=== PATIENT | female | born 1960 | race Caucasian/White ===

== ENCOUNTER 2017-01-19 06:31 | Day surgery (SDC) | payer BC, OTHER ==
[2017-01-18 11:56] VITALS: BMI 22.6
[~2017-01-19 06:31] MED LIST: ALPRAZolam 0.25 MG TAB PO PRN; ASPIRIN 325 MG TAB PO ONE; NITROGLYCERIN SL TABS 0.4 MG TAB SUBLINGUAL PRN; SODIUM CHLORIDE 0.9% 1,000 ML in EMPTY BAG 1 BAG IV ONE
[2017-01-19 07:05] VITALS: RESP 18
[2017-01-19 07:07] LABS: Basophils # (A) 0.1 k/uL (0-0.2); Basophils % (A) 1 %; CH 31.1; CHCM 33.6; Eosinophils # (A) 0.3 k/uL (0-0.7); Eosinophils % (A) 3 %; HCT 44.1 % (34.0-46.0); HDW 2.16; HGB 14.9 gm/dL (11.4-16.0); Luc # (Auto) 0.29; Luc % (Auto) 3; Lymphocytes # (A) 3.4 k/uL (1.0-4.8); Lymphocytes % (A) 30 %; MCH 31.4 pg (25.0-35.0); MCHC 33.8 g/dL (31.0-37.0); MCV 92.9 fL (80.0-100.0); Mean Platelet Volume 7.3; Monocytes # (A) 0.4 k/uL (0-1.0); Monocytes % (A) 3 %; Neutrophils # (A) 6.8 k/uL (1.3-7.7); Neutrophils % (A) 60 %; RBC 4.75 m/uL (3.80-5.40); RDW 13.5 % (11.5-15.5); WBC 11.3 k/uL (3.8-10.6); WBC (Perox) 11.73
[2017-01-19] MEDS ORDERED: LIDOCAINE 2% INJ 20 MG/ML (20 ML MDV) ONE (07:10)
[2017-01-19] MEDS ORDERED: VERAPAMIL 2.5 MG/ML 2 ML AMP ONE (07:11)
[2017-01-19] MEDS ORDERED: MIDAZOLAM 2 MG/2 ML VIAL ONE ×2 (07:11→07:54)
[2017-01-19] MEDS ORDERED: HEPARIN SODIUM 1,000 UNIT/ML VIAL ONE (07:11)
[2017-01-19 07:23] LABS: Anion Gap 10 mmol/L; Blood Urea Nitrogen 13 mg/dL (7-17); Calcium 9.8 mg/dL (8.4-10.2); Carbon Dioxide 26 mmol/L (22-30); Chloride 109 mmol/L (98-107); Glucose 94 mg/dL (74-99); Non-African American GFR(MDRD) >60 (>60 ml/min/1.73 sqM); Potassium 3.8 mmol/L (3.5-5.1); Sodium 145 mmol/L (137-145)
[2017-01-19] MEDS ORDERED: MIDAZOLAM 2 MG/2 ML VIAL IVP ONE ×2 (07:43→07:55)
[2017-01-19] MEDS: LIDOCAINE 2% INJ 20 MG/ML SQ ONE ×2 (07:45→08:04)
[2017-01-19] MEDS ORDERED: LIDOCAINE 2% INJ 20 MG/ML SQ ONE (07:48)
[2017-01-19] MEDS: VERAPAMIL SYRINGE (5 MG/10 ML) INTRAARTER ONE ×2 (07:50→08:00)
[2017-01-19] MEDS ORDERED: HEPARIN SODIUM 1,000 UNIT/ML VIAL IV ONE (07:55)
[2017-01-19] MEDS ORDERED: IOHEXOL 350 MG/ML 100 ML BOTTLE INJ ONE (08:21)
[2017-01-19] MEDS ORDERED: RX INFO: IV CONTRAST WAS GIVEN 1 EACH MISC MISCELLANE PRN (08:23)
[2017-01-19] MEDS ORDERED: SODIUM CHLORIDE 0.9% 1,000 ML IV SCH (08:30)
[2017-01-19 12:06] VITALS: TEMP 98
[2017-01-19 12:54] VITALS: BP 134/75; PULSE 64
--- NOTE | 2017-01-19 16:25 | LTR ---
January 19, 2017 RE: Josluis miguel Halima Kitty Dear Dr. Venturaqvi: Ms. Halima Guardado underwent a heart catheterization today which showed intermediate nonobstructive disease involving the right coronary artery. Maximize medical treatment is recommended and no need for angioplasty and stenting at this point. I want to thank you for allowing me to participate in her care and please do not hesitate to call if any questions or concerns. Sincerely, BENTLEY SALGADO MD
--- NOTE | 2017-01-19 16:25 | CC ---
DATE OF SERVICE: January 19, 2017. PERFORMING PHYSICIAN: Gil Blandon M.D. agronomy technician. PROCEDURE PERFORMED: 1. Selective right and left coronary angiogram. 2. Left heart catheterization. 3. Left ventriculography. INDICATION: This is a very pleasant 56-year-old female patient with a known history of hypertension, dyslipidemia, and smoking who is known to have mild coronary artery disease on heart catheterization was performed in 2011, continues to have chest discomfort concerning for angina. She was brought today to undergo a heart catheterization. COMPLICATIONS: None. Level of sedation: Moderate. Approach: 1. Right radial artery. 2. Right common femoral artery. Level of sedation: Moderate with sedation length of 30 minutes. PROCEDURE DESCRIPTION: After obtaining informed consent, the patient was brought to the cardiac finishing lab technician. Initially the right radial artery was cannulated using micropuncture technique, the micropuncture wire passed easily, then I placed the right radial artery. Subsequently I gave the patient 2 mg of verapamil IA and 3000 units of heparin IV. I tried to advance an 0.035 J-wire but the wire will not cross the elbow. So at that point, I did exchange into an 0.035 Glidewire. I tried to advance a 5 Bangladeshi JR 4 catheter but the catheter will not cross the elbow. I did exchange into stiff Glidewire and in spite of that I was unable to cross the elbow. So I decided to abort the radial approach and go from the groin. The right common femoral artery was cannulated using micropuncture technique. The micropuncture wire passed easily, then I placed 6 Bangladeshi sheath in the right common femoral artery. Subsequently, I did selective right and left coronary angiogram using JR 3.5 and JL 3.5 5 Bangladeshi catheters. The procedure was completed without any complication. SELECTIVE CORONARY ANGIOGRAM: 1. Right coronary artery is a large-caliber vessel and it is a dominant vessel. The proximal RCA appeared to be angiographically normally. The mid RCA is diseased up to about 30%. The RCA distally appeared to be angiographically normal and bifurcates into PDA and PLV branches; both are angiographically normal. 2. The left main is a long left main with mild disease only. It bifurcates into the left circumflex and left anterior descending artery. 3. The left circumflex is a moderate-caliber vessel and it is a nondominant vessel. The proximal left circumflex is angiographically normal. It gives rises into the first OM branch, which is a large-caliber vessel, seems to be normal and the circ continues after that as a small-caliber vessel in the AV groove. 4. Left anterior descending artery: The proximal LAD appeared to be angiographically normal and gives rise to the first diagonal branch, which is a large-caliber vessel, seems to be angiographically normal. The mid LAD is normal and the LAD distally is normal as well. HEMODYNAMICS: The left ventricular end-diastolic pressure was 8 mmHg and no gradient was identified across the aortic valve. The left ventriculography was performed in the WARD projection and using a power injection. The left ventricular systolic function is normal with EF about 50 to 55%. CONCLUSION: 1. Intermediate nonobstructive disease involving the mid right coronary artery. 2. Mild disease involving the left coronary system. 3. Normal left ventricular end-diastolic pressure. 4. Normal left ventricular systolic function. POSTPROCEDURE MANAGEMENT: 1. Smoking cessation. 2. Risk factor modifications. 3. Follow up with the patient.
== END 2017-01-19 14:02 | disposition home or self-care (01) ==
LOC: CATHCVL 06:31
PROVIDERS: ATTEND Internal Medicine Interventional Cardiology
DX: I25.10 Atherosclerotic heart disease of native coronary artery without angina pectoris (principal); I10 Essential (primary) hypertension; E78.5 Hyperlipidemia, unspecified; E78.00 Pure hypercholesterolemia, unspecified; F17.210 Nicotine dependence, cigarettes, uncomplicated; Z82.49 Family history of ischemic heart disease and other diseases of the circulatory system; Z79.82 Long term (current) use of aspirin; Z79.899 Other long term (current) drug therapy
CPT/HCPCS: 99152; 99153; 93458; 80048; 85025; C1760; C1769 ×4; C1894 ×3; J2001; J2250; Q9967; J1644

== ENCOUNTER 2017-03-12 11:35 | Emergency (ER) | payer OTHER ==
[2017-03-12 11:49] VITALS: BP 156/81; PULSE 82; RESP 20; TEMP 98.2
[2017-03-12] MEDS ORDERED: KETOROLAC 60 MG/2 ML VIAL IM STA (12:30)
[2017-03-12] MEDS ORDERED: ORPHENADRINE 30 MG/ML 2 ML VIAL IM STA (12:30)
--- NOTE | 2017-03-12 12:32 | ED ---
Back Pain HPI - General Chief Complaint: Back Pain/Injury Stated Complaint: LOWER BACK PAIN Time Seen by Provider: 03/12/17 12:23 Source: patient, RN notes reviewed Limitations: no limitations - History of Present Illness Initial Comments: 57-year-old female presents emergency Department with chief complaint of low back pain. This is chronic in nature. She states that she has a history of back pains normal takes tramadol. She states she's been having increasing back pain in which she had an appointment with her primary care physician today but canceled to come here. Patient states that she's had x-rays in the past which showed degenerative changes. Patient has not had an MRI. Patient denies any bowel, bladder incontinence or retention. Patient denies any saddle anesthesias. Patient had no trauma no falls no injuries. Worse with movement. She states Tylenol is not helping much. She denies any dysuria, hematuria or increased frequency urination. Patient denies any abdominal pain. Patient states that certain movements or worsen hours. - Related Data Home Medications Medication Instructions Recorded Confirmed Cholecalciferol [Vitamin D3] 1,000 unit PO DAILY 05/09/16 01/19/17 Levothyroxine Sodium [Synthroid] 100 mcg PO DAILY 05/09/16 01/19/17 Multivitamins, Thera [Multivitamin 1 tab PO DAILY 05/09/16 01/19/17 (formulary)] Albuterol Inhaler [Ventolin Hfa 2 puff INHALATION Q6HR PRN 01/18/17 01/19/17 Inhaler] Atorvastatin [Lipitor] 20 mg PO HS 01/18/17 01/19/17 Previous Rx's Medication Instructions Recorded Aspirin 81 mg PO DAILY #1 chewable 05/10/16 Acetaminophen-Codeine 300-30mg 1 tab PO Q4H PRN #20 tablet 03/12/17 [Tylenol #3] Cyclobenzaprine [Flexeril] 10 mg PO TID PRN #15 tab 03/12/17 Allergies Allergy/AdvReac Type Severity Reaction Status Date / Time No Known Allergies Allergy Verified 03/12/17 11:49 Review of Systems ROS Statement: Those systems with pertinent positive or pertinent negative responses have been documented in the HPI. ROS Other: All systems not noted in ROS Statement are negative. Past Medical History Past Medical History: Chest Pain / Angina, COPD, Hyperlipidemia, Osteoarthritis (OA), Thyroid Disorder Additional Past Medical History / Comment(s): . History of Any Multi-Drug Resistant Organisms: None Reported Past Surgical History: Section, Cholecystectomy Past Anesthesia/Blood Transfusion Reactions: No Reported Reaction Past Psychological History: No Psychological Hx Reported Additional Psychological History / Comment(s): . Smoking Status: Current every day smoker Past Alcohol Use History: Occasional Additional Past Alcohol Use History / Comment(s): has smoked for 36 yrs , 1/2 PPD Past Drug Use History: None Reported - Past Family History Mother History Unknown: Yes Family Medical History: Deep Vein Thrombosis (DVT) Father Family Medical History: Cancer Additional Family Medical History / Comment(s): lung cancer Brother(s) Family Medical History: Cancer General Exam Limitations: no limitations General appearance: alert, in no apparent distress Head exam: Present: atraumatic, normocephalic, normal inspection Respiratory exam: Present: normal lung sounds bilaterally. Absent: respiratory distress, wheezes, rales, rhonchi, stridor Cardiovascular Exam: Present: regular rate, normal rhythm, normal heart sounds. Absent: systolic murmur, diastolic murmur, rubs, gallop, clicks GI/Abdominal exam: Present: soft, normal bowel sounds. Absent: distended, tenderness, guarding, rebound, rigid Extremities exam: Present: normal inspection, full ROM, normal capillary refill , other (Pedal pulses equal bilaterally full strength). Absent: tenderness, pedal edema, joint swelling, calf tenderness Back exam: Present: full ROM, tenderness (Mild left lower abdominal tenderness) , paraspinal tenderness, other (Pain with straight leg raise). Absent: vertebral tenderness Neurological exam: Present: alert, oriented X3, CN II-XII intact, reflexes normal. Absent: motor sensory deficit Course Vital Signs 03/12/17 11:47 Temperature 98.2 F Pulse Rate 82 Respiratory 20 Rate Blood Pressure 156/81 O2 Sat by Pulse 99 Oximetry Medical Decision Making - Medical Decision Making 57-year-old female presented for chronic back pain. Patient will be given Toradol and Norflex here. Patient we given Tylenol codeine and Flexeril go home with. Patient is instructed to follow-up with Dr. Flores in her primary care physicians. We discussed about following up for possible MRI. Return parameters were discussed Disposition Clinical Impression: Chronic back pain Disposition: HOME SELF-CARE Condition: Stable Instructions: Chronic Back Pain (ED) Additional Instructions: Please return to the Emergency Department if symptoms worsen or any other concerns. Follow-up with orthopedic and your primary care physician. Prescriptions: Acetaminophen-Codeine 300-30mg [Tylenol #3] 1 tab PO Q4H PRN #20 tablet PRN Reason: pain Cyclobenzaprine [Flexeril] 10 mg PO TID PRN #15 tab PRN Reason: Muscle Spasm Referrals: Zac Dela Cruz MD [Primary Care Provider] - 1-2 days Fredrick Huizar DO [Doctor of Osteopathic Medicine] - 1-2 days Time of Disposition: 12:31
== END 2017-03-12 12:45 | disposition home or self-care (01) ==
LOC: EC 11:35
DX: G89.29 Other chronic pain (principal); M54.5 Low back pain; E78.5 Hyperlipidemia, unspecified; E07.9 Disorder of thyroid, unspecified; F17.200 Nicotine dependence, unspecified, uncomplicated; Z79.899 Other long term (current) drug therapy
CPT/HCPCS: 99283; 96372 ×2; J2360; J1885

== ENCOUNTER → 2017-04-22 | Outpatient (CLI) | payer OTHER | LOC: RADMRIMAIN 20:32 | PROVIDERS: ATTEND Family Medicine | DX: Z53.9 Procedure and treatment not carried out, unspecified reason (principal) ==

== ENCOUNTER → 2017-05-10 | Outpatient (CLI) | payer OTHER ==
--- NOTE | 2017-05-10 18:06 | MR ---
EXAMINATION TYPE: MR lumbar spine wo con DATE OF EXAM: 05/10/2017 COMPARISON: NONE HISTORY: LBP, lt buttock radic, no trauma TECHNIQUE: T1 and T2 axial and sagittal images of the lumbar spine are submitted. FINDINGS: There is no abnormal signal seen within the visualized spinal cord or paraspinal soft tissu es. At L1-2 there is no disc herniation or canal stenosis. No foraminal encroachment. At L2-3 there is severe degenerative disc disease with a broad-based left paracentral and lateral dis c herniation. There is severe left-sided foraminal encroachment and effacement of thecal sac. Facet a rthropathy noted. Mild canal stenosis. At L3-4 there is moderate to severe degenerative disc disease. Circumferential disc bulging and facet arthropathy. Mild canal stenosis and moderate bilateral foraminal encroachment. At L4-5 there is broad-based central disc protrusion or small herniation with facet arthropathy and l igamentum flavum hypertrophy. Moderate to severe canal stenosis and bilateral moderate foraminal encr oachment. At L5-S1 there is severe facet arthropathy. There is central disc bulging but no canal stenosis or fo raminal encroachment. IMPRESSION: 1. Multilevel disc herniation with broad-based left paracentral lateral disc herniation L2-L3. There is intermediate signal along the anterior lateral margin of the thecal sac suspicious for extruded sm all disc fragment extending posterior to the L3 vertebral body on the left. This could be confirmed w ith postcontrast imaging. Postcontrast MRI recommended. 2. Central disc protrusion or small herniation L4-L5 with hypertrophic changes result in moderate to severe canal stenosis and bilateral foraminal encroachment.
== END | disposition home or self-care (01) ==
LOC: RADMRIMAIN 16:37
PROVIDERS: ATTEND Family Medicine
DX: M48.06 Spinal stenosis, lumbar region (principal); M51.26 Other intervertebral disc displacement, lumbar region
CPT/HCPCS: 72148

== ENCOUNTER → 2017-05-17 | Outpatient (CLI) | payer OTHER ==
--- NOTE | 2017-05-18 13:56 | MM ---
Reason for exam: screening (asymptomatic). Last mammogram was performed 9 years and 9 months ago. History: Patient is postmenopausal. Physical Findings: A clinical breast exam by your physician is recommended on an annual basis and results should be correlated with mammographic findings. MG Screening Mammo w CAD Bilateral CC and MLO view(s) were taken. Prior study comparison: August 04, 2007, bilateral screening mammogram w/CAD. April 16, 2006, bilateral screening mammogram w/CAD. There are scattered fibroglandular densities. No significant changes when compared with prior studies. ASSESSMENT: Benign, BI-RAD 2 RECOMMENDATION: Routine screening mammogram of both breasts in 1 year.
== END | disposition home or self-care (01) ==
LOC: RADMAMWWP 12:54
PROVIDERS: ATTEND Family Medicine
DX: Z12.31 Encounter for screening mammogram for malignant neoplasm of breast (principal)

== ENCOUNTER → 2017-12-23 | Outpatient (CLI) | payer OTHER ==
--- NOTE | 2017-12-23 15:44 | CTL ---
EXAMINATION TYPE: CT Low Dose Lung DATE OF EXAM ORDERED: 12/23/2017 HISTORY: . Lung cancer screening CT DLP: [address] CTDI: 1.8 mGy Automated exposure control for dose reduction was used. SCREENING VISIT: COMPARISON: None TECHNIQUE: Low dose computed tomography scan was performed through the chest at 1 mm thick sections a nd reconstructed images in the coronal plane at [address] DIAGNOSTIC QUALITY: Satisfactory FINDINGS: LUNG NODULES: None. There is a spiculated solid nodule adjacent to the superior vena cava within the right upper lung fie ld, series 4 image 70. This measures 1.1 x 1.0 cm. LUNGS: COPD: Severity: Mild Fibrosis: Severity: None Lymph nodes: Scattered small Other findings: The ascending thoracic aorta at the level the main pulmonary artery is 4.0 cm. The ma in pulmonary artery the bifurcation is 2.7 cm. RIGHT PLEURAL SPACE: Effusion: None Calcification: None Thickening: None Pneumothorax: None LEFT PLEURAL SPACE: Effusion: None Calcification: None Thickening: None Pneumothorax: None HEART: Heart Size: Normal Coronary calcification: Mild Pericardial effusion: None OTHER FINDINGS: Upper abdomen: Normal Bony thorax: Normal Supraclavicular region: Normal Other: None IMPRESSION: 1. 1 x 1.1 cm mass right superior medial lung field. Workup for neoplasm is recommended. PET/CT could be performed. FOLLOW UP CT CHEST RECOMMENDATION: Follow-up PET/CT and with physician. CT LUNG RAD: Lung-Rad 4B Suspicious
== END | disposition home or self-care (01) ==
LOC: RADCTMAIN 12:21
PROVIDERS: ATTEND Internal Medicine Sleep Medicine
DX: Z12.2 Encounter for screening for malignant neoplasm of respiratory organs (principal); R91.8 Other nonspecific abnormal finding of lung field; Z87.891 Personal history of nicotine dependence

== ENCOUNTER → 2018-01-01 | Outpatient (CLI) | payer OTHER ==
--- NOTE | 2018-01-02 15:36 | PE ---
EXAMINATION TYPE: PET CT fusion skull to thigh DATE OF EXAM: 01/01/2018 COMPARISON: 12/23/2017 low-dose [address] chest Prior PET/CT: None HISTORY: Solitary pulmonary nodule TECHNIQUE: Following the intravenous administration of 14.865 mCi of F-18 FDG, whole body images are performed from the skull base to the midthigh. Images are reviewed on the computer in the coronal, axial, and sagittal planes. Reconstructed rotating images are created on independent workstation and reviewed on the computer. A localization and attenuation correction CT is performed in conjunction with the PET scan. DLP: 283.65 mGycm SCAN: Initial Blood glucose: 87 mg/dL Average Mediastinum SUV: 1.07 Average Liver SUV: 2 FINDINGS: NECK: No abnormal uptake. THORAX: There is focal radiotracer accumulation within the spiculated nodule identified on the low-do se screening CT of the medial anterior right upper lobe. Image 69. This has an SUV value of 4.18 comp atible with neoplasm. No suspicious mediastinal uptake is evident. ABDOMEN: No abnormal uptake PELVIS: No abnormal uptake OSSEOUS STRUCTURES: There is some mild uptake within the facets on the right at approximately C4-5 li fran related to degenerative change. Metastatic deposit is considered less likely but within the diff erential. Some mild uptake is also present on the left C3-4. LOCALIZATION CT: There is some ascending thoracic aortic aneurysm measuring 4.2 cm in AP dimension at the level of the main pulmonary artery. The main pulmonary artery measures 2.6 cm at the bifurcation . No suspicious mediastinal adenopathy is evident. A few shotty lymph nodes are present. The right ap ical lung mass adjacent to the superior vena cava and the right upper anterior lobe measures 1.1 x 1. 1 cm on mediastinal windows. Series 3 image 69. There is a 0.2 cm calcification superior left kidney. COMPARISON: Right apical findings on the PET scan correspond to the low-dose CT screening images. IMPRESSION: 1. Right upper medial lung mass has elevated SUV compatible with neoplasm suspicious for solitary benjy thao. 2. Mild uptake is within facets at C3-4 on the left at C4-5 on the right felt to more likely be relat ed to the degenerative change present. Metastasis considered less likely is not excluded. 3. No additional suspicious radiotracer accumulation to suggest metastasis.
== END | disposition home or self-care (01) ==
LOC: RADPETMAIN 13:28
PROVIDERS: ATTEND Internal Medicine Sleep Medicine
DX: J98.4 Other disorders of lung (principal)
CPT/HCPCS: 78815; A9552

== ENCOUNTER 2018-05-21 16:20 | Emergency (ER) | payer OTHER ==
[2018-05-21 16:38] VITALS: RESP 18
[2018-05-21] MEDS ORDERED: SODIUM CHLORIDE 0.9% 1,000 ML IV ONE (17:40)
[2018-05-21] MEDS ORDERED: FAMOTIDINE 20 MG/2 ML VIAL IV STA (17:40)
[2018-05-21] MEDS ORDERED: ONDANSETRON 4 MG/2 ML VIAL IVP STA (17:40)
--- NOTE | 2018-05-21 17:53 | ED ---
General Adult HPI - General Chief complaint: Nausea/Vomiting/Diarrhea Stated complaint: Vomiting Time Seen by Provider: 05/21/18 17:00 Source: patient Mode of arrival: wheelchair Limitations: no limitations - History of Present Illness Initial comments: Halima is a 58-year-old female with a history of lung cancer currently undergoing chemotherapy. She presents to the emergency department today for evaluation of nausea and vomiting which began yesterday evening. Halima received chemotherapy on Wednesday and Wednesday of this week. Patient reports that she receives this infusion every 21 days. She reports that this should be her last treatment it was her fourth treatment in the series. Patient states that she has experienced nausea with the patient's in the past. She reports that yesterday she developed nausea and she had multiple episodes of nonbloody nonbilious emesis. She states that this morning she continued to feel nauseated and had dry heaves though she has not been able to tolerate any by mouth intake. She took Zofran but had no relief in her symptoms. She reports that this morning she also developed a nonbloody diarrhea. Patient denies any chest pain, palpitations she reports that she just feels overwhelmingly run down from this dose of chemotherapy. - Related Data Home Medications Medication Instructions Recorded Confirmed Cholecalciferol [Vitamin D3] 1,000 unit PO DAILY 05/09/16 05/21/18 Levothyroxine Sodium [Synthroid] 100 mcg PO DAILY 05/09/16 05/21/18 Multivitamins, Thera [Multivitamin 1 tab PO DAILY 05/09/16 05/21/18 (formulary)] Albuterol Inhaler [Ventolin Hfa 2 puff INHALATION Q6HR PRN 01/18/17 05/21/18 Inhaler] Atorvastatin [Lipitor] 20 mg PO HS 01/18/17 05/21/18 HYDROcodone/APAP 5-325MG [[place] 1 tab PO BID PRN 05/21/18 05/21/18 5-325] Potassium Chloride ER [K-Dur 10] 20 meq PO DAILY 05/21/18 05/21/18 Prochlorperazine [Compazine] 10 mg PO Q6H PRN 05/21/18 05/21/18 Previous Rx's Medication Instructions Recorded Aspirin 81 mg PO DAILY #1 chewable 05/10/16 Ondansetron [Zofran ODT] 4 mg PO Q8HR #12 tab 05/21/18 Allergies Allergy/AdvReac Type Severity Reaction Status Date / Time No Known Allergies Allergy Verified 05/21/18 17:09 Review of Systems ROS Statement: Those systems with pertinent positive or pertinent negative responses have been documented in the HPI. ROS Other: All systems not noted in ROS Statement are negative. Constitutional: Reports: weakness. Denies: fever Eyes: Denies: eye pain (Generalized) ENT: Denies: throat pain Respiratory: Reports: cough (Chronic) Cardiovascular: Denies: chest pain, palpitations Endocrine: Reports: fatigue Gastrointestinal: Reports: nausea, vomiting, diarrhea Genitourinary: Denies: urgency, dysuria Skin: Denies: rash, lesions Neurological: Reports: weakness. Denies: headache Psychiatric: Denies: anxiety, depression Hematological/Lymphatic: Denies: easy bleeding, easy bruising Past Medical History Past Medical History: Cancer, Chest Pain / Angina, COPD, Hyperlipidemia, Osteoarthritis (OA), Thyroid Disorder Additional Past Medical History / Comment(s): lymph node cancer, small cell carcinoma. History of Any Multi-Drug Resistant Organisms: None Reported Past Surgical History: Section, Cholecystectomy Additional Past Surgical History / Comment(s): right upper lung lobectomy Past Anesthesia/Blood Transfusion Reactions: No Reported Reaction Past Psychological History: Anxiety Smoking Status: Current every day smoker Past Alcohol Use History: Occasional Past Drug Use History: Marijuana - Past Family History Mother History Unknown: Yes Family Medical History: Deep Vein Thrombosis (DVT) Father Family Medical History: Cancer Additional Family Medical History / Comment(s): lung cancer Brother(s) Family Medical History: Cancer General Exam Limitations: no limitations General appearance: alert, other (Appears uncomfortable) Head exam: Present: atraumatic, normocephalic Eye exam: Present: normal appearance, PERRL ENT exam: Present: normal exam Neck exam: Present: normal inspection Respiratory exam: Absent: respiratory distress Cardiovascular Exam: Present: tachycardia GI/Abdominal exam: Present: soft. Absent: distended, tenderness, guarding, rebound, rigid Rectal exam: Present: deferred Extremities exam: Present: full ROM Back exam: Present: normal inspection Neurological exam: Present: alert, oriented X3 Psychiatric exam: Present: normal affect, normal mood Skin exam: Present: warm, dry Course Vital Signs 05/21/18 05/21/18 05/21/18 16:35 18:47 20:05 Temperature 97.9 F Pulse Rate 94 80 82 Respiratory 18 18 18 Rate Blood Pressure 133/98 146/82 133/83 O2 Sat by Pulse 99 99 97 Oximetry 05/21/18 20:57 Temperature 97.6 F Pulse Rate Respiratory Rate Blood Pressure O2 Sat by Pulse Oximetry - Reevaluation(s) Reevaluation #1: reevaluated, sitting comfortably again in bed. Patient has drink a glass of water and requested some avery crackers. She was given these. Patient does state that she has Zofran pills at home I will discharge home with ODT. 05/21/18 20:10 Medical Decision Making - Medical Decision Making The patient was seen and evaluated, history was obtained from the patient as well as her family at bedside. Patient with postchemotherapy nausea, vomiting, diarrhea concern for dehydration. Labs imaging were ordered IV Zofran and normal saline were ordered Patient was reevaluated after IV fluids and Zofran. She sitting up comfortably in bed, appears much more comfortable. Reports significant improvement in her nausea so the vomiting in the ER. Patient ambulated to the restroom independently. Reports she is feeling much better and is eager for discharge home. He is willing to wait the results of her urinalysis. Patient has been tolerating by mouth intake, urinalysis and no evidence of UTI. She very eager for discharge home and she would like to leave follow-up [facility] is still open and she would like to get a multiple. I advised patient that I feel that this is a good idea, she is stable for discharge. I stressed the importance of coming to the emergency department early and not waiting until she is feeling so unwell. Patient states that she does not want to be a burden to anybody. I again stressed to the patient that we understand the chemotherapy is very trying on the body and that we are always here to help her. Patient family expressed understanding and agreement. Patient discharged home in stable condition. - Lab Data Result diagrams: 05/21/18 18:00 05/21/18 18:00 Lab Results 05/21/18 05/21/18 05/21/18 Range/Units 18:00 18:00 20:34 WBC 5.7 (3.8-10.6) k/uL RBC 4.34 (3.80-5.40) m/uL Hgb 13.0 (11.4-16.0) gm/dL Hct 38.3 (34.0-46.0) % MCV 88.1 (80.0-100.0) fL MCH 29.9 (25.0-35.0) pg MCHC 33.9 (31.0-37.0) g/dL RDW 16.2 H (11.5-15.5) % Plt Count 260 (150-450) k/uL Neutrophils % 47 % Lymphocytes % 49 % Monocytes % 1 % Eosinophils % 1 % Basophils % 1 % Neutrophils # 2.6 (1.3-7.7) k/uL Lymphocytes # 2.8 (1.0-4.8) k/uL Monocytes # 0.1 (0-1.0) k/uL Eosinophils # 0.1 (0-0.7) k/uL Basophils # 0.0 (0-0.2) k/uL Manual Slide Review Performed Anisocytosis Slight Sodium 138 (137-145) mmol/L Potassium 3.8 (3.5-5.1) mmol/L Chloride 100 (98-107) mmol/L Carbon Dioxide 31 H (22-30) mmol/L Anion Gap 7 mmol/L BUN 24 H (7-17) mg/dL Creatinine 0.89 (0.52-1.04) mg/dL Est GFR (CKD-EPI)AfAm 82 (>60 ml/min/1.73 sqM) Est GFR (CKD-EPI)NonAf 71 (>60 ml/min/1.73 sqM) Glucose 113 H (74-99) mg/dL Calcium 9.6 (8.4-10.2) mg/dL Total Bilirubin 0.8 (0.2-1.3) mg/dL AST 18 (14-36) U/L ALT 39 (9-52) U/L Alkaline Phosphatase 79 (38-126) U/L Total Protein 6.5 (6.3-8.2) g/dL Albumin 4.3 (3.5-5.0) g/dL Urine Color Yellow Urine Appearance Clear (Clear) Urine pH 6.0 (5.0-8.0) Ur Specific [place] 1.013 (1.001-1.035) Urine Protein Trace H (Negative) Urine Glucose (UA) Negative (Negative) Urine Ketones Trace H (Negative) Urine Blood Trace H (Negative) Urine Nitrite Negative (Negative) Urine Bilirubin Negative (Negative) Urine Urobilinogen <2.0 (<2.0) mg/dL Ur Leukocyte Esterase Negative (Negative) Urine RBC 3 (0-5) /hpf Urine WBC 3 (0-5) /hpf Urine WBC Clumps Rare H (None) /hpf Ur Squamous Epith Cells 2 (0-4) /hpf Urine Bacteria Rare H (None) /hpf Granular Casts 1 (0) /lpf Urine Mucus Rare H (None) /hpf Disposition Clinical Impression: Nausea vomiting and diarrhea, Chemotherapy induced nausea and vomiting Disposition: HOME SELF-CARE Condition: Good Instructions: Acute Nausea and Vomiting (ED), Acute Diarrhea (ED) Prescriptions: Ondansetron [Zofran ODT] 4 mg PO Q8HR #12 tab Is patient prescribed a controlled substance at d/c from ED?: No Referrals: Zac Dela Cruz MD [Primary Care Provider] - 1-2 days Time of Disposition: 20:46
[2018-05-21 18:15] LABS: Anisocytosis Slight; Basophils % (A) 1 %; Eosinophils # (A) 0.1 k/uL (0-0.7); Eosinophils % (A) 1 %; HCT 38.3 % (34.0-46.0); Lymphocytes # (A) 2.8 k/uL (1.0-4.8); Lymphocytes % (A) 49 %; MCH 29.9 pg (25.0-35.0); MCHC 33.9 g/dL (31.0-37.0); MCV 88.1 fL (80.0-100.0); Mean Platelet Volume 6.6; Monocytes # (A) 0.1 k/uL (0-1.0); Monocytes % (A) 1 %; Neutrophils # (A) 2.6 k/uL (1.3-7.7); Neutrophils % (A) 47 %; Platelet Count 260 k/uL (150-450); RBC 4.34 m/uL (3.80-5.40); RDW 16.2 % (11.5-15.5); WBC 5.7 k/uL (3.8-10.6)
[2018-05-21 18:24] LABS: Albumin 4.3 g/dL (3.5-5.0); Calcium 9.6 mg/dL (8.4-10.2); Potassium 3.8 mmol/L (3.5-5.1); Total Bilirubin 0.8 mg/dL (0.2-1.3); Total Protein 6.5 g/dL (6.3-8.2)
--- NOTE | 2018-05-21 19:58 | XR ---
EXAMINATION TYPE: XR chest 2V DATE OF EXAM: 05/21/2018 COMPARISON: Prior chest x-ray dated 05/19/2016. HISTORY: Lung cancer with prior right lobectomy TECHNIQUE: Frontal and lateral views of the chest are obtained. FINDINGS: Loss of volume in the right hemithorax with a patchy density involving the medial portion of the right lung base. The rest of the findings are stable. No pneumothorax or significant effusions . Slight elevation of the right hemidiaphragm as compared to the prior exam. The cardiac silhouette s ize is within normal limits. The osseous structures are intact. IMPRESSION: Postsurgical changes with loss of volume in the right hemithorax as compared to the prior exam. No evidence of pneumothorax, significant effusion or new abnormal pulmonary mass.
[2018-05-21 20:06] VITALS: BP 133/83; PULSE 82
[2018-05-21 20:42] LABS: Appearance,Urine Clear (Clear); Bacteria,Urine Rare /hpf; Bilirubin,Urine Negative (Negative); Blood,Urine Trace (Negative); Color,Urine Yellow; Glucose,Urine (UA) Negative (Negative); Granular Casts,Urine 1 /lpf (0); Ketones,Urine Trace (Negative); Leukocyte Esterase,Urine Negative (Negative); Mucus,Urine Rare /hpf; Nitrite,Urine Negative (Negative); Protein,Urine Trace (Negative); RBC,Urine 3 /hpf (0-5); Specific Gravity,Urine 1.013 (1.001-1.035); Squamous Epithelial Cell,Urine 2 /hpf (0-4); Urobilinogen,Urine <2.0 mg/dL (<2.0); WBC,Urine 3 /hpf (0-5)
[2018-05-21 20:58] VITALS: TEMP 97.6
== END 2018-05-21 20:58 | disposition home or self-care (01) ==
LOC: EC 16:20
DX: R11.2 Nausea with vomiting, unspecified (principal); R19.7 Diarrhea, unspecified; J44.9 Chronic obstructive pulmonary disease, unspecified; E78.5 Hyperlipidemia, unspecified; E07.9 Disorder of thyroid, unspecified; C34.90 Malignant neoplasm of unspecified part of unspecified bronchus or lung; F41.9 Anxiety disorder, unspecified; F17.200 Nicotine dependence, unspecified, uncomplicated; Z85.89 Personal history of malignant neoplasm of other organs and systems; Z79.899 Other long term (current) drug therapy; Z90.49 Acquired absence of other specified parts of digestive tract; Z92.21 Personal history of antineoplastic chemotherapy
CPT/HCPCS: 36415; 80053; 85025; 81001; 71046; 99284; 96374; 96375; 96361 ×3; J2405

== ENCOUNTER → 2018-05-25 | Outpatient (CLI) | payer OTHER ==
--- NOTE | 2018-05-25 12:37 | MR ---
EXAMINATION TYPE: MR cervical spine wo con DATE OF EXAM: 05/25/2018 COMPARISON: PET scan 01/01/2018 HISTORY: Cervicalgia, PEREIRA TECHNIQUE: Multiplanar, multisequence images of the cervical spine were acquired. C2-C3: Mild generalized degenerative change. There is mild facet arthropathy. No foraminal encroachme nt or canal stenosis. C3-C4: Facet arthropathy and mild uncovertebral joint hypertrophy. Neural foramina remain patent. No canal stenosis or focal herniation. C4-C5: Facet arthropathy and uncovertebral joint hypertrophy. No foraminal encroachment or canal sten osis. C5-C6: Severe degenerative disc disease with posterior disc protrusion capped by spur. There is impre ssion upon the anterior margin the spinal cord and findings compatible spinal stenosis. Facet arthrop athy contributes to bilateral foraminal encroachment. C6-C7: Severe degenerative disc disease with posterior disc protrusion abutting the anterior margin t he spinal cord. Uncovertebral joint hypertrophy and facet arthropathy result in moderate bilateral fo raminal encroachment. There is canal stenosis. C7-T1: No disc herniation or canal stenosis. No foraminal encroachment. Cervical segments are intact. There is normal alignment. Cervical spinal cord is of normal signal. Craniovertebral junction relationships are within normal limits. IMPRESSION: Multilevel degenerative change with severe changes at C5-6 and C6-C7. Disc protrusion capped by spur and hypertrophic changes contribute to bilateral foraminal encroachment and spinal stenosis. At both levels there is mild impression along the anterior margin of the spinal cord.
== END | disposition home or self-care (01) ==
LOC: RADMRIMAIN 11:46
PROVIDERS: ATTEND Psychiatry & Neurology Neurology
DX: M48.02 Spinal stenosis, cervical region (principal); M50.222 Other cervical disc displacement at C5-C6 level; M47.812 Spondylosis without myelopathy or radiculopathy, cervical region
CPT/HCPCS: 72141

== ENCOUNTER → 2018-06-03 | Outpatient (CLI) | payer OTHER ==
--- NOTE | 2018-06-05 14:09 | MR ---
EXAMINATION TYPE: MR brain wo/w con DATE OF EXAM: 06/03/2018 COMPARISON: None HISTORY: Headache, history of cancer CONTRAST: Performed utilizing 6.5 mL intravenous Gadavist gadolinium contrast. TECHNIQUE: Multiplanar, multiecho imaging on a 3.0 Katheryn magnet is performed through the brain. Stud y is performed within 24 hours of arrival to the hospital. The craniovertebral junction is normal. The pituitary is normal. Diffusion-weighted imaging is performed. No abnormal hyperintensity is present to suggest an acute i ntracranial infarct or acute ischemic change. There are a few scattered punctate T2 hyperintensities which are hyperintense on inversion recovery w eighted sequences. These are nonspecific and most likely related to chronic white matter ischemic britney nges. No enhancement within these lesions is evident. No abnormal enhancement is evident elsewhere wi thin the brain. Ventricles and sulci are appropriate for the patient age. IMPRESSIONS: 1. Scattered punctate white matter changes in the deep white matter most likely related to chronic wh ite matter ischemic changes. 2. No suspicious lesions or enhancement to suggest metastatic disease.
== END | disposition home or self-care (01) ==
LOC: RADMRIMAIN 17:01
PROVIDERS: ATTEND Internal Medicine Hematology & Oncology
DX: R90.82 White matter disease, unspecified (principal)
CPT/HCPCS: 70553; A9581

== ENCOUNTER → 2018-06-07 | Outpatient (CLI) | payer OTHER ==
--- NOTE | 2018-06-08 08:35 | CT ---
EXAMINATION TYPE: CT ChestAbdPelvis w con DATE OF EXAM: 06/07/2018 COMPARISON: PET/CT January 01, 2018. HISTORY: Follow up for lung CA, history of right-sided partial pneumonectomy and chemotherapy, dates not specified CT DLP: 527.9 mGycm. Automated Exposure Control for Dose Reduction was Utilized. CONTRAST: CT scan of the thorax, abdomen and pelvis is performed with oral and with IV Contrast, patient inject ed with 100 mL of Isovue 300. FINDINGS: LUNGS: Since prior PET/CT there has been partial pneumonectomy with sutures in the medial aspect righ t upper lung. Previously visualized right lung nodule is not identified. Right upper to midlung centr al and anterior scarring is now present. There is minimal right basilar linear scarring. No new suspi cious nodule or mass is present. Second small nodule periphery right lung PET/CT axial image 80 also not clearly identified after surgery. No pleural effusion or pneumothorax is noted. MEDIASTINUM: There are no greater than 1 cm hilar or mediastinal lymph nodes. No cardiomegaly or pe ricardial effusion is seen. Ascending aorta measures up to 3.6 cm in diameter. Coronary artery calcif ication is seen which is noted marker for coronary artery disease. OTHER: Somewhat small size thyroid is redemonstrated.. LIVER/GB: Cholecystectomy clips are redemonstrated. PANCREAS: No significant abnormality is seen. SPLEEN: Small splenule anterior to spleen is again seen. ADRENALS: Slight asymmetric symmetric thickening to left adrenal gland is stable presumed benign. KIDNEYS: No significant abnormality is seen. BOWEL: No significant abnormality is seen. GENITAL ORGANS: Scattered pelvic phleboliths are present bilaterally. LYMPH NODES: No greater than 1cm abdominal or pelvic lymph nodes are appreciated. OSSEOUS STRUCTURES: Moderate disc space narrowing L2-L3 level. Mild disc space narrowing with vacuum disc phenomenon L4-L5. Mild to moderate axial joint space loss both hips. OTHER: Moderate aftereffect change of the abdominal aorta extending into pelvic branch vessels. IMPRESSION: Interval treatment change including surgery to the right lung. No new suspicious mass or adenopathy identified to suggest neoplastic recurrence.
== END | disposition home or self-care (01) ==
LOC: RADCTMAIN 16:42
PROVIDERS: ATTEND Internal Medicine Hematology & Oncology
DX: C34.11 Malignant neoplasm of upper lobe, right bronchus or lung (principal); Z98.890 Other specified postprocedural states
CPT/HCPCS: 71260; 74177; Q9967

== ENCOUNTER → 2018-09-05 | Outpatient (CLI) | payer OTHER ==
--- NOTE | 2018-09-05 13:48 | CT ---
EXAMINATION TYPE: CT ChestAbdPelvis w con DATE OF EXAM: 09/05/2018 COMPARISON: 06/07/2018 HISTORY: Follow-up lung cancer, observe for mets. CT DLP: 626.7 mGycm Automated exposure control for dose reduction was used. CONTRAST: CT scan of the chest, abdomen and pelvis is performed with Oral Contrast and with IV Contrast, patien t injected with 100 mL of Isovue M300. FINDINGS: LUNGS: There has been partial pneumonectomy with sutures in the medial aspect right upper lung. Previously visualized right lung nodule is not identified. Right upper to midlung central and anterio r scarring is now present. There is minimal right basilar linear scarring. Pleural-based thickening and densities radiating from fluoroscopy with micronodularity stable. There also is a 4 mm nodule in the medial aspect anterior s egment right upper lobe retrospectively stable. No pleural effusion or pneumothorax is noted. MEDIASTINUM: There are no greater than 1 cm hilar or mediastinal lymph nodes. No cardiomegaly or jose ramon cardial effusion is seen. Ascending aorta measures up to 3.6 cm in diameter. Coronary artery calcific ation is seen which is noted marker for coronary artery disease. OTHER: No additional significant abnormality is seen. LIVER/GB: Cholecystectomy clips are redemonstrated. PANCREAS: No significant abnormality is seen. SPLEEN: No significant abnormality is seen. ADRENALS: Slight asymmetric symmetric thickening to left adrenal gland is stable presumed benign. KIDNEYS: Subcentimeter hypodensity left kidney too small to characterize but likely related to simple cyst. BOWEL: No significant abnormality is seen. LYMPH NODES: No greater than 1 cm abdominal or pelvic lymph nodes are appreciated. OSSEOUS STRUCTURES: Multilevel degenerative disc disease. Arthropathy of the hips. OTHER: Atherosclerotic change of aorta. Soft tissue density bilateral adnexal region most compatible with normal-appearing ovaries stable. IMPRESSION: 1. No evidence of recurrent mass or pathologic adenopathy. 2. Stable micronodular right upper lobe. 3. Postsurgical changes.
== END | disposition home or self-care (01) ==
LOC: RADCTMAIN 11:48
PROVIDERS: ATTEND Internal Medicine Hematology & Oncology
DX: C34.11 Malignant neoplasm of upper lobe, right bronchus or lung (principal); Z98.890 Other specified postprocedural states
CPT/HCPCS: 71260; 74177; Q9967

== ENCOUNTER 2018-09-18 12:22 | Observation (INO) | payer OTHER ==
[2018-09-18] MEDS ORDERED: methylPREDNISolone SOD SUCCI 125 MG/2 ML VIAL IV STA (12:37)
[2018-09-18] MEDS ORDERED: IPRATROPIUM-ALBUTEROL 3 ML NEB INHALATION STA (12:37)
--- NOTE | 2018-09-18 12:45 | ED ---
SOB HPI - General Chief Complaint: Shortness of Breath Stated Complaint: RICHARD Time Seen by Provider: 09/18/18 12:27 Source: patient, RN notes reviewed Mode of arrival: wheelchair Limitations: no limitations - History of Present Illness Initial Comments: 58-year-old female presents emergency Department chief shortness breath. Patient states she's been having progressive shortness of breath over the last week. Patient saw her registered public health nurse Dr. Kaminski who placed on amoxicillin and prednisone. She states she's been doing her albuterol treatments and has not been getting relief. Patient was seen at [facility] with some her symptoms last night and states that she was discharged. Patient states that she is worsened today. Patient reports no fever or chills. She states that she is having trouble with activity secondary to shortness of breath. Denies any chest pain, nausea vomiting. - Related Data Home Medications Medication Instructions Recorded Confirmed Cholecalciferol [Vitamin D3] 1,000 unit PO DAILY 05/09/16 05/21/18 Levothyroxine Sodium [Synthroid] 100 mcg PO DAILY 05/09/16 05/21/18 Multivitamins, Thera [Multivitamin 1 tab PO DAILY 05/09/16 05/21/18 (formulary)] Albuterol Inhaler [Ventolin Hfa 2 puff INHALATION Q6HR PRN 01/18/17 05/21/18 Inhaler] Atorvastatin [Lipitor] 20 mg PO HS 01/18/17 05/21/18 HYDROcodone/APAP 5-325MG [[place] 1 tab PO BID PRN 05/21/18 05/21/18 5-325] Potassium Chloride ER [K-Dur 10] 20 meq PO DAILY 05/21/18 05/21/18 Prochlorperazine [Compazine] 10 mg PO Q6H PRN 05/21/18 05/21/18 Previous Rx's Medication Instructions Recorded Aspirin 81 mg PO DAILY #1 chewable 05/10/16 Ondansetron [Zofran ODT] 4 mg PO Q8HR #12 tab 05/21/18 Allergies Allergy/AdvReac Type Severity Reaction Status Date / Time No Known Allergies Allergy Verified 09/18/18 12:26 Review of Systems ROS Statement: Those systems with pertinent positive or pertinent negative responses have been documented in the HPI. ROS Other: All systems not noted in ROS Statement are negative. Past Medical History Past Medical History: Cancer, Chest Pain / Angina, COPD, Hyperlipidemia, Osteoarthritis (OA), Thyroid Disorder Additional Past Medical History / Comment(s): lymph node cancer, small cell carcinoma. History of Any Multi-Drug Resistant Organisms: None Reported Past Surgical History: Section, Cholecystectomy Additional Past Surgical History / Comment(s): right upper lung lobectomy Past Anesthesia/Blood Transfusion Reactions: No Reported Reaction Past Psychological History: Anxiety Smoking Status: Current every day smoker Past Alcohol Use History: Occasional Past Drug Use History: Marijuana - Past Family History Mother History Unknown: Yes Family Medical History: Deep Vein Thrombosis (DVT) Father Family Medical History: Cancer Additional Family Medical History / Comment(s): lung cancer Brother(s) Family Medical History: Cancer General Exam Limitations: no limitations General appearance: alert, in no apparent distress Head exam: Present: atraumatic, normocephalic, normal inspection Neck exam: Present: normal inspection. Absent: tenderness, meningismus, lymphadenopathy Respiratory exam: Present: respiratory distress (Mild), wheezes, decreased breath sounds. Absent: normal lung sounds bilaterally, rales, rhonchi, stridor Cardiovascular Exam: Present: regular rate, normal rhythm, normal heart sounds. Absent: systolic murmur, diastolic murmur, rubs, gallop, clicks GI/Abdominal exam: Present: soft, normal bowel sounds. Absent: distended, tenderness, guarding, rebound, rigid Neurological exam: Present: alert, oriented X3, CN II-XII intact Skin exam: Present: warm, dry, intact, normal color. Absent: rash Course Vital Signs 09/18/18 09/18/18 09/18/18 12:24 12:58 13:10 Temperature 97.8 F Pulse Rate 88 90 86 Respiratory 20 Rate Blood Pressure 144/87 O2 Sat by Pulse 97 Oximetry 09/18/18 13:45 Temperature Pulse Rate 90 Respiratory 20 Rate Blood Pressure 132/81 O2 Sat by Pulse 94 L Oximetry Medical Decision Making - Medical Decision Making 4-year-old female presented from for dyspnea. Patient has history of lung cancer, COPD. Patient has failed outpatient treatment for COPD exacerbation. Patient be admitted for IV steroids, - Lab Data Result diagrams: 09/18/18 13:05 09/18/18 13:05 Lab Results 09/18/18 09/18/1818 Range/Units 13:05 13:05 13:05 WBC 10.9 H (3.8-10.6) k/uL RBC 4.06 (3.80-5.40) m/uL Hgb 13.2 (11.4-16.0) gm/dL Hct 38.7 (34.0-46.0) % MCV 95.4 (80.0-100.0) fL MCH 32.5 (25.0-35.0) pg MCHC 34.0 (31.0-37.0) g/dL RDW 13.9 (11.5-15.5) % Plt Count 204 (150-450) k/uL Neutrophils % 69 % Lymphocytes % 25 % Monocytes % 4 % Eosinophils % 1 % Basophils % 0 % Neutrophils # 7.5 (1.3-7.7) k/uL Lymphocytes # 2.8 (1.0-4.8) k/uL Monocytes # 0.4 (0-1.0) k/uL Eosinophils # 0.1 (0-0.7) k/uL Basophils # 0.0 (0-0.2) k/uL PT (9.0-12.0) sec INR (<1.2) APTT (22.0-30.0) sec Sodium 142 (137-145) mmol/L Potassium 3.6 (3.5-5.1) mmol/L Chloride 107 (98-107) mmol/L Carbon Dioxide 25 (22-30) mmol/L Anion Gap 10 mmol/L BUN 11 (7-17) mg/dL Creatinine 0.67 (0.52-1.04) mg/dL Est GFR (CKD-EPI)AfAm >90 (>60 ml/min/1.73 sqM) Est GFR (CKD-EPI)NonAf >90 (>60 ml/min/1.73 sqM) Glucose 94 (74-99) mg/dL Calcium 9.9 (8.4-10.2) mg/dL Magnesium 1.8 (1.6-2.3) mg/dL Total Bilirubin 0.4 (0.2-1.3) mg/dL AST 36 (14-36) U/L ALT 35 (9-52) U/L Alkaline Phosphatase 60 (38-126) U/L Total Creatine Kinase 700 H (30-135) U/L CK-MB (CK-2) 4.0 H (0.0-2.4) ng/mL CK-MB (CK-2) Rel Index 0.6 Troponin I <0.012 (0.000-0.034) ng/mL NT-Pro-B Natriuret Pep pg/mL Total Protein 6.7 (6.3-8.2) g/dL Albumin 4.0 (3.5-5.0) g/dL 09/18/18 09/18/18 Range/Units 13:05 13:05 WBC (3.8-10.6) k/uL RBC (3.80-5.40) m/uL Hgb (11.4-16.0) gm/dL Hct (34.0-46.0) % MCV (80.0-100.0) fL MCH (25.0-35.0) pg MCHC (31.0-37.0) g/dL RDW (11.5-15.5) % Plt Count (150-450) k/uL Neutrophils % % Lymphocytes % % Monocytes % % Eosinophils % % Basophils % % Neutrophils # (1.3-7.7) k/uL Lymphocytes # (1.0-4.8) k/uL Monocytes # (0-1.0) k/uL Eosinophils # (0-0.7) k/uL Basophils # (0-0.2) k/uL PT 9.6 (9.0-12.0) sec INR 1.0 (<1.2) APTT 21.0 L (22.0-30.0) sec Sodium (137-145) mmol/L Potassium (3.5-5.1) mmol/L Chloride (98-107) mmol/L Carbon Dioxide (22-30) mmol/L Anion Gap mmol/L BUN (7-17) mg/dL Creatinine (0.52-1.04) mg/dL Est GFR (CKD-EPI)AfAm (>60 ml/min/1.73 sqM) Est GFR (CKD-EPI)NonAf (>60 ml/min/1.73 sqM) Glucose (74-99) mg/dL Calcium (8.4-10.2) mg/dL Magnesium (1.6-2.3) mg/dL Total Bilirubin (0.2-1.3) mg/dL AST (14-36) U/L ALT (9-52) U/L Alkaline Phosphatase (38-126) U/L Total Creatine Kinase (30-135) U/L CK-MB (CK-2) (0.0-2.4) ng/mL CK-MB (CK-2) Rel Index Troponin I (0.000-0.034) ng/mL NT-Pro-B Natriuret Pep 71 pg/mL Total Protein (6.3-8.2) g/dL Albumin (3.5-5.0) g/dL - EKG Data EKG Comments: EKG performed at 13:25 normal sinus rhythm rate 77 OK 128 QRS 100 QT/QTC 390/441 Disposition Clinical Impression: COPD exacerbation, Failure of outpatient treatment Disposition: ADMITTED IP TO THIS HOSP Condition: Fair Referrals: Zac Dela Cruz MD [Primary Care Provider] - 1-2 days
[2018-09-18] MEDS ORDERED: LORazepam 2 MG/ML INJ IV STA (13:26)
[2018-09-18 13:40] LABS: ALT 35 U/L (9-52); AST 36 U/L (14-36); Alkaline Phosphatase 60 U/L (38-126); Anion Gap 10 mmol/L; Blood Urea Nitrogen 11 mg/dL (7-17); Calcium 9.9 mg/dL (8.4-10.2); Carbon Dioxide 25 mmol/L (22-30); Chloride 107 mmol/L (98-107); Glucose 94 mg/dL (74-99); Magnesium 1.8 mg/dL (1.6-2.3); Potassium 3.6 mmol/L (3.5-5.1); Sodium 142 mmol/L (137-145); Total Bilirubin 0.4 mg/dL (0.2-1.3); Total Protein 6.7 g/dL (6.3-8.2)
[2018-09-18 13:42] LABS: Creatine Kinase 700 U/L (30-135)
[2018-09-18 13:47] LABS: Basophils % (A) 0 %; Eosinophils # (A) 0.1 k/uL (0-0.7); Eosinophils % (A) 1 %; HCT 38.7 % (34.0-46.0); HGB 13.2 gm/dL (11.4-16.0); Lymphocytes # (A) 2.8 k/uL (1.0-4.8); Lymphocytes % (A) 25 %; MCH 32.5 pg (25.0-35.0); MCV 95.4 fL (80.0-100.0); Mean Platelet Volume 6.7; Monocytes # (A) 0.4 k/uL (0-1.0); Monocytes % (A) 4 %; Neutrophils # (A) 7.5 k/uL (1.3-7.7); Neutrophils % (A) 69 %; Platelet Count 204 k/uL (150-450); RBC 4.06 m/uL (3.80-5.40); RDW 13.9 % (11.5-15.5); WBC 10.9 k/uL (3.8-10.6)
--- NOTE | 2018-09-18 13:51 | XR ---
EXAMINATION TYPE: XR chest 2V DATE OF EXAM: 09/18/2018 HISTORY: difficulty breathing. REFERENCE: Previous study dated 05/02/2018. FINDINGS: The lungs are clear. Pleural space are clear. Heart size upper limits of normal. IMPRESSION: NO ACUTE INTRATHORACIC ABNORMALITY.
[2018-09-18 13:52] LABS: Prothrombin Time 9.6 sec (9.0-12.0)
[2018-09-18 13:56] LABS: Troponin I <0.012 ng/mL (0.000-0.034)
[2018-09-18] MEDS ORDERED: ALBUTEROL NEBULIZED 2.5 MG/3 ML INHALATION PRN (14:49)
[2018-09-18] MEDS: IPRATROPIUM-ALBUTEROL 3 ML NEB INHALATION SCH ×4 (15:33→23:57)
[2018-09-18 16:19] VITALS: BMI 23.2
[2018-09-18 17:07] LABS: Glucose,Whole Blood 231 mg/dL (75-99)
[2018-09-18] MEDS: methylPREDNISolone SOD SUCCI 125 MG/2 ML VIAL IV SCH (17:49)
[2018-09-18] MEDS: INSULIN ASPART 100 UNIT/ML 1 ML 10 ML VIAL SQ SCH ×2 (17:49→21:06)
[2018-09-18 20:24] LABS: Glucose,Whole Blood 240 mg/dL (75-99)
[2018-09-18] MEDS: BUDESONIDE 1 MG/2 ML NEBU INHALATION SCH (20:55)
[2018-09-18] MEDS: HYDROcodone/APAP 5-325MG 1 EACH TAB PO SCH (21:06)
[2018-09-18] MEDS ORDERED: ACETAMINOPHEN TAB 325 MG TAB PO PRN (21:32)
[2018-09-18] MEDS ORDERED: MAGNESIUM HYDROXIDE 2,400 MG/10 ML CUP PO PRN (21:32)
[2018-09-18] MEDS ORDERED: NALOXONE 0.4 MG/ML 1 ML VIAL IV PRN (21:32)
[2018-09-18] MEDS ORDERED: ONDANSETRON 4 MG/2 ML VIAL IVP PRN (21:32)
[2018-09-18] MEDS ORDERED: LACTULOSE 20 GM/30 ML CUP PO PRN (21:32)
[2018-09-18] MEDS ORDERED: MELATONIN 3 MG TABLET PO PRN (21:32)
[2018-09-18] MEDS ORDERED: CALCIUM CARBONATE 500 MG CHEWABLE PO PRN (21:32)
--- NOTE | 2018-09-18 21:48 | P.CNPUL ---
History of Present Illness Consult date: 09/18/18 Reason for consult: dyspnea, cough, COPD Chief complaint: Cough shortness of breath and wheezing History of present illness: 58-year-old female well-known to me for history of severe COPD emphysema patient has been active smoker for week to 10 days has not been feeling well increased cough congestion or shortness of breath and wheezing she was seen evaluated examined in the office recommended to undergo a trial of oral antibiotics and oral prednisone without any significant relief due to ongoing symptoms patient presented into another local hospital last night but was discharged due to persistent symptoms and without any significant resolution came into the emergency department and has been admitted into the hospital, on specific questioning he denies any sputum production denies any hemoptysis but does have cough and wheezing and difficulty in sleeping patient has finished antibiotics and prednisone without any significant relief on outpatient basis Review of Systems All systems: negative Past Medical History Past Medical History: Cancer, Chest Pain / Angina, COPD, Hyperlipidemia, Osteoarthritis (OA), Thyroid Disorder Additional Past Medical History / Comment(s): lymph node cancer, small cell carcinoma. History of Any Multi-Drug Resistant Organisms: None Reported Past Surgical History: Section, Cholecystectomy Additional Past Surgical History / Comment(s): right upper lung lobectomy Past Anesthesia/Blood Transfusion Reactions: No Reported Reaction Past Psychological History: Anxiety Additional Psychological History / Comment(s): . Smoking Status: Current every day smoker Past Alcohol Use History: Occasional Additional Past Alcohol Use History / Comment(s): has smoked for 36 yrs , 1/2 PPD Past Drug Use History: Marijuana Additional Drug Use History / Comment(s): Denies current Marijuana use - Past Family History Mother History Unknown: Yes Family Medical History: Deep Vein Thrombosis (DVT) Father Family Medical History: Cancer Additional Family Medical History / Comment(s): lung cancer Brother(s) Family Medical History: Cancer Medications and Allergies Home Medications Medication Instructions Recorded Confirmed Type Levothyroxine Sodium [Synthroid] 100 mcg PO DAILY 05/09/16 09/18/18 History Atorvastatin [Lipitor] 20 mg PO HS 01/18/17 09/18/18 History HYDROcodone/APAP 5-325MG [[place] 1 tab PO TID 05/21/18 09/18/18 History 5-325] Amoxicillin 500 mg PO Q8H 09/18/18 09/18/18 History Varenicline [Chantix Starter Pack] See Taper PO DIRECTED 09/18/18 09/18/18 History buPROPion HCL [Wellbutrin SR] 150 mg PO Q12H 09/18/18 09/18/18 History Allergies Allergy/AdvReac Type Severity Reaction Status Date / Time No Known Allergies Allergy Verified 09/18/18 15:22 Physical Exam Vitals: Vital Signs Temp Pulse Pulse Resp BP BP Pulse Ox 09/18/18 21:05 98 09/18/18 20:55 98 09/18/18 16:15 98.4 F 97 18 147/72 93 L 09/18/18 15:21 99 18 125/89 98 09/18/18 13:45 90 20 132/81 94 L 09/18/18 13:10 86 09/18/18 12:58 90 09/18/18 12:24 97.8 F 88 20 144/87 97 Intake and Output 09/18/18 09/18/18 09/18/18 06:59 14:59 22:59 Other: Voiding Method Toilet Weight 57.606 kg 57.606 kg - Constitutional General appearance: average body habitus, cooperative, disheveled, mild distress , thin - EENT Eyes: EOMI, PERRLA, poor dentition, normal appearance ENT: hearing grossly normal, normal oropharynx Ears: bilateral: normal - Neck Carotids: bilateral: upstroke normal Thyroid: bilateral: normal size - Respiratory Respiratory: bilateral: diminished, rhonchi, wheezing, prolonged expiration, negative: dullness, rales - Cardiovascular Rhythm: regular Heart sounds: normal: S1, S2 - Gastrointestinal General gastrointestinal: normal bowel sounds, soft - Neurologic Neurologic: CNII-XII intact - Musculoskeletal Musculoskeletal: gait normal, generalized weakness, strength equal bilaterally - Psychiatric Psychiatric: A&O x's 3, appropriate affect, intact judgment & insight Results - Laboratory Findings CBC and BMP: 09/18/18 13:05 09/18/18 13:05 PT/INR, D-dimer PT 9.6 sec (9.0-12.0) 09/18/18 13:05 INR 1.0 (<1.2) 09/18/18 13:05 Abnormal lab findings: Abnormal Labs 09/18/18 09/18/18 09/18/18 13:05 13:05 13:05 WBC 10.9 H APTT 21.0 L POC Glucose (mg/dL) Total Creatine Kinase 700 H CK-MB (CK-2) 4.0 H 09/18/18 09/18/18 17:06 20:22 WBC APTT POC Glucose (mg/dL) 231 H 240 H Total Creatine Kinase CK-MB (CK-2) - Diagnostic Findings Chest x-ray: report reviewed, image reviewed (COPD-like changes) Assessment and Plan Assessment: Acute COPD exacerbation Acute tracheobronchitis Failed outpatient therapy Hypertension dyslipidemia history of lung cancer small cell carcinoma it is status post left upper lobe resection Plan: Bronchodilators Broad-spectrum antibiotics IV steroids Breathing treatments Patient education about smoking cessation Continue home medications Increase activity as tolerated Further recommendations pending plan of care as per clinical response of the patient Time with Patient: Greater than 30
[2018-09-18] MEDS: ATORVASTATIN 20 MG TAB PO SCH (22:41)
[2018-09-18] MEDS: ENOXAPARIN 40 MG/0.4 ML SYRINGE SQ SCH (22:41)
[2018-09-18] MEDS: buPROPion SR 150 MG TABLET.ER PO SCH (22:41)
[2018-09-18] MEDS: CEFDINIR 300 MG CAP PO SCH (22:41)
--- NOTE | 2018-09-18 22:44 | HP ---
HISTORY AND PHYSICAL DATE OF SERVICE: 09/18/2018 PRESENT COMPLAINT: Short of breath. HISTORY OF PRESENTING COMPLAINT: A very pleasant 58-year-old patient of Dr. Dela Cruz. Chronic stable medical conditions include hyperlipidemia, osteoarthritis, hypothyroid. The patient had small-cell lung cancer with right upper lobe lobectomy, done at [facility]. Cancer also found in the lymph nodes and underwent chemotherapy by Dr. Long which is now healed. The patient has continued to smoke up until recently. Now just started on Chantix. The patient presents with about 4 days of increasing short of breath, wheezing, cough, yellow white sputum, decreased appetite, tired, run down, very short of breath, wheezing in the ER. Started on bronchodilators and admitted for the same. The patient was feeling rather anxious from a presentation. Patient did see Dr. Curry in the office recently and was started on amoxicillin. Also went to the [facility] ER from where she was discharged and because of having failed outpatient treatment, she has presented here. REVIEW OF SYSTEMS: CONSTITUTIONAL: Tired. HEENT: None. RESPIRATORY as above. CARDIOVASCULAR none. GASTROINTESTINAL none. GENITOURINARY: None. MUSCULOSKELETAL: Some pain in the joints. DERMATOLOGICAL: None. HEMATOLOGICAL: None. LYMPHATICS: None. PSYCHIATRY: Anxiety. NEUROLOGICAL none. PAST MEDICAL HISTORY: COPD, hyperlipidemia, osteoarthritis, hypothyroid, small cell lung cancer. PAST SURGICAL HISTORY: Right upper lobe lobectomy, cholecystectomy, . PSYCH HISTORY: Anxiety. SOCIAL HISTORY: Smoking a pack a day for over 40 years. Stopped just now. Alcohol occasionally. Lives by herself. On disability. FAMILY HISTORY: DVT, lung cancer. HOME MEDICATIONS: 1. Chantix. 2. Synthroid 100 mcg a day. 3. Milo 5 one tablet p.o. t.i.d. 4. Wellbutrin SR 150 mg q.12. 5. Lipitor 20 mg q.h.s. 6. Amoxicillin 500 mg p.o. q.8h. PHYSICAL EXAMINATION: VITAL SIGNS: Vital signs on presentation, temperature 97.8, pulse 88, respiration 22, blood pressure 144/87, pulse ox 97% on room air. GENERAL APPEARANCE: Average built, sitting up, anxious-appearing, short of breath. EYES: Pupils are equal. Conjunctivae normal. HEENT: External appearance of nose and ears normal. Oral cavity normal. NECK: JVD not raised. Mass not palpable. RESPIRATORY: Effort increased. LUNGS: Diminished breath sounds. Prolonged expiration, wheezing. CARDIOVASCULAR: 1st and 2nd sounds normal. No edema. ABDOMEN: Soft, nontender. Liver and spleen not palpable. LYMPHATICS: No lymph nodes palpable in the neck and axilla. PSYCHIATRY: Alert and oriented x3. Mood and affect slightly anxious-appearing. NEUROLOGICAL: Pupils equal. Cranial nerves grossly intact. Power and sensation grossly intact. INVESTIGATIONS: White count 10.9, hemoglobin 13.2, potassium 3.6, troponin negative. Chest x-ray personally reviewed by me shows hyperinflation. EKG tracing personally reviewed by me shows incomplete right bundle branch block, sinus rhythm. ASSESSMENT: 1. Acute severe chronic obstructive pulmonary disease exacerbation in a current smoker with acute tracheobronchitis. 2. History of right upper lobe lobectomy for small cell lung cancer. 3. Chronic nicotine dependence, patient is a cigarette smoker, just started on Chantix. 4. Hyperlipidemia. 5. Primary osteoarthritis. 6. Hypothyroidism. PLAN: Patient is started on nebulized bronchodilators, IV steroids, inhaled steroids. Home medications are resumed. The patient again counseled about smoking. We will check patient's thyroid function in the morning, I am wondering if she is slightly over replaced. The patient does see Dr. Curry from Pulmonary who will be consulted and home dose of Chantix to be continued. Copy to Dr. Dela Cruz. CHIKIS / CANDI: [id number] /
[2018-09-19] MEDS: methylPREDNISolone SOD SUCCI 125 MG/2 ML VIAL IV SCH ×4 (00:31→17:25)
[2018-09-19] MEDS: LORazepam 0.5 MG TAB PO PRN ×3 (03:48→23:24)
[2018-09-19] MEDS: IPRATROPIUM-ALBUTEROL 3 ML NEB INHALATION SCH ×6 (04:12→23:42)
[2018-09-19] MEDS: LEVOTHYROXINE 100 MCG TAB PO SCH (05:34)
[2018-09-19 07:00] LABS: Glucose,Whole Blood 202 mg/dL (75-99)
[2018-09-19] MEDS: INSULIN ASPART 100 UNIT/ML 1 ML 10 ML VIAL SQ SCH ×4 (08:08→21:10)
[2018-09-19] MEDS: buPROPion SR 150 MG TABLET.ER PO SCH ×2 (08:08→20:38)
[2018-09-19] MEDS: CEFDINIR 300 MG CAP PO SCH ×2 (08:09→20:39)
[2018-09-19] MEDS: BUDESONIDE 1 MG/2 ML NEBU INHALATION SCH ×2 (08:12→19:47)
[2018-09-19] MEDS: HYDROcodone/APAP 5-325MG 1 EACH TAB PO SCH ×3 (08:14→21:11)
[2018-09-19] MEDS ORDERED: VARENICLINE 1 MG PO SCH (09:00)
[2018-09-19 11:58] LABS: Glucose,Whole Blood 179 mg/dL (75-99)
[2018-09-19 12:57] LABS: Hemoglobin A1C 6.2 % (4.0-6.0)
--- NOTE | 2018-09-19 13:14 | P.PN ---
Subjective Progress Note Date: 09/19/18 Principal diagnosis: Acute COPD exacerbation, tracheobronchitis, severe COPD, hepatitis him, chronic insomnia, active smoker 09/19/2018, patient seen eval examined during the rounds clinically patient has been doing better breathing more comfortably no obvious distress is present, is still short of breath on activity and exertion, severity or shortness of breath has improved however 58-year-old female well-known to me for history of severe COPD emphysema patient has been active smoker for week to 10 days has not been feeling well increased cough congestion or shortness of breath and wheezing she was seen evaluated examined in the office recommended to undergo a trial of oral antibiotics and oral prednisone without any significant relief due to ongoing symptoms patient presented into another local hospital last night but was discharged due to persistent symptoms and without any significant resolution came into the emergency department and has been admitted into the hospital, on specific questioning he denies any sputum production denies any hemoptysis but does have cough and wheezing and difficulty in sleeping patient has finished antibiotics and prednisone without any significant relief on outpatient basis Objective - Vital Signs Vital signs: Vital Signs Temp 98.4 F 09/19/18 13:06 Pulse 99 09/19/18 13:06 Resp 16 09/19/18 13:06 BP 131/69 09/19/18 13:06 Pulse Ox 92 L 09/19/18 13:06 Intake & Output 09/18/18 09/19/18 09/19/18 18:59 06:59 18:59 Intake Total 350 Balance 350 Weight 57.606 kg Intake: Oral 350 Other: Voiding Method Toilet Toilet Toilet # Voids 1 - Exam Constitutional General appearance: average body habitus, cooperative, disheveled, mild distress , thin - EENT Eyes: EOMI, PERRLA, poor dentition, normal appearance ENT: hearing grossly normal, normal oropharynx Ears: bilateral: normal - Neck Carotids: bilateral: upstroke normal Thyroid: bilateral: normal size - Respiratory Respiratory: bilateral: diminished, rhonchi, wheezing, prolonged expiration, negative: dullness, rales - Cardiovascular Rhythm: regular Heart sounds: normal: S1, S2 - Gastrointestinal General gastrointestinal: normal bowel sounds, soft - Neurologic Neurologic: CNII-XII intact - Musculoskeletal Musculoskeletal: gait normal, generalized weakness, strength equal bilaterally - Psychiatric Psychiatric: A&O x's 3, appropriate affect, intact judgment & insight - Labs CBC & Chem 7: 09/18/18 13:05 09/18/18 13:05 Labs: Abnormal Lab Results - Last 24 Hours (Table) 09/18/18 09/18/18 09/18/18 Range/Units 13:05 13:05 13:05 WBC 10.9 H (3.8-10.6) k/uL APTT 21.0 L (22.0-30.0) sec POC Glucose (mg/dL) (75-99) mg/dL Hemoglobin A1c (4.0-6.0) % Total Creatine Kinase 700 H (30-135) U/L CK-MB (CK-2) 4.0 H (0.0-2.4) ng/mL 09/18/18 09/18/18 09/18/18 Range/Units 13:05 17:06 20:22 WBC (3.8-10.6) k/uL APTT (22.0-30.0) sec POC Glucose (mg/dL) 231 H 240 H (75-99) mg/dL Hemoglobin A1c 6.2 H (4.0-6.0) % Total Creatine Kinase (30-135) U/L CK-MB (CK-2) (0.0-2.4) ng/mL 09/19/18 09/19/18 Range/Units 06:58 11:57 WBC (3.8-10.6) k/uL APTT (22.0-30.0) sec POC Glucose (mg/dL) 202 H 179 H (75-99) mg/dL Hemoglobin A1c (4.0-6.0) % Total Creatine Kinase (30-135) U/L CK-MB (CK-2) (0.0-2.4) ng/mL Assessment and Plan Assessment: Acute COPD exacerbation Acute tracheobronchitis Failed outpatient therapy Hypertension dyslipidemia history of lung cancer small cell carcinoma it is status post left upper lobe resection Plan: Bronchodilators Broad-spectrum antibiotics IV steroids Breathing treatments Patient education about smoking cessation Continue home medications Increase activity as tolerated The right Can be switched to oral at the time of discharge Further recommendations pending plan of care as per clinical response of the patient Time with Patient: Greater than 30
[2018-09-19 17:03] LABS: Glucose,Whole Blood 289 mg/dL (75-99)
[2018-09-19] MEDS: VARENICLINE 1 MG PO SCH (20:38)
[2018-09-19] MEDS: ATORVASTATIN 20 MG TAB PO SCH (20:38)
--- NOTE | 2018-09-19 20:47 | PN ---
PROGRESS NOTE DATE OF SERVICE: 09/19/2018 PRESENTING COMPLAINT: Short of breath. INTERVAL HISTORY: This patient presented with COPD exacerbation and tracheobronchitis. Cough with sputum is coming down. Breathing is somewhat better. Did tolerate some diet. She was seen by Dr. Curry from Pulmonary. Has been out of bed. REVIEW OF SYSTEMS: Done for constitutional, cardiovascular, GI, pulmonary; relevant findings as above. CURRENT MEDICATIONS: Reviewed. They include bronchodilators, inhaled and IV steroids. PHYSICAL EXAMINATION: Temperature 98.4, pulse 99, respiration 16, blood pressure 131/69, pulse ox 92% on room air. GENERAL APPEARANCE: Sitting up. Awake. EYES: Pupils equal. Conjunctivae normal. HEENT: External appearance of nose and ears normal. Oral cavity normal. NECK: JVD not raised. Mass not palpable. RESPIRATORY: Effort increased. LUNGS: Decreased breath sounds. Prolonged expiration and some wheezing. CARDIOVASCULAR: First and second sounds normal. No edema. ABDOMEN: Soft, non-tender. Liver and spleen not palpable. PSYCHIATRY: Alert and oriented x3. Mood and affect normal. INVESTIGATIONS: Accu-Cheks are noted. ASSESSMENT: 1. Acute severe chronic obstructive pulmonary disease exacerbation in a current smoker with acute tracheobronchitis with clinical response. 2. History of right upper lobe lobectomy for small-cell lung cancer, treated. Also received chemotherapy. 3. Chronic nicotine dependence. Patient is a current cigarette smoker. 4. Hyperlipidemia. 5. Primary osteoarthritis. 6. Hypothyroidism. PLAN: Patient is overall doing better. Continue current medication and treatment plan. Expect the patient to be in the hospital for another 24 to 48 hours, depending on clinical course. MMODL / IJN: [id number] /
[2018-09-19 21:02] LABS: Glucose,Whole Blood 182 mg/dL (75-99)
[2018-09-19] MEDS: ENOXAPARIN 40 MG/0.4 ML SYRINGE SQ SCH (21:11)
[2018-09-19] MEDS: methylPREDNISolone SOD SUCCI 40 MG/ML 1 ML VIAL IV SCH (23:24)
[2018-09-20] MEDS: IPRATROPIUM-ALBUTEROL 3 ML NEB INHALATION SCH ×3 (04:37→10:49)
[2018-09-20 05:20] VITALS: BP 137/79; RESP 16; TEMP 97.8
[2018-09-20] MEDS: LEVOTHYROXINE 100 MCG TAB PO SCH (06:12)
[2018-09-20 06:58] LABS: Glucose,Whole Blood 166 mg/dL (75-99)
[2018-09-20] MEDS: BUDESONIDE 1 MG/2 ML NEBU INHALATION SCH (07:25)
[2018-09-20] MEDS: INSULIN ASPART 100 UNIT/ML 1 ML 10 ML VIAL SQ SCH (08:23)
[2018-09-20] MEDS: HYDROcodone/APAP 5-325MG 1 EACH TAB PO SCH (08:24)
[2018-09-20] MEDS: buPROPion SR 150 MG TABLET.ER PO SCH (08:24)
[2018-09-20] MEDS: methylPREDNISolone SOD SUCCI 40 MG/ML 1 ML VIAL IV SCH (08:24)
[2018-09-20] MEDS: CEFDINIR 300 MG CAP PO SCH (08:24)
[2018-09-20] MEDS: VARENICLINE 1 MG PO SCH (08:25)
--- NOTE | 2018-09-20 09:44 | P.PN ---
Subjective Progress Note Date: 09/20/18 Principal diagnosis: Acute COPD exacerbation, tracheobronchitis, severe COPD, hepatitis him, chronic insomnia, active smoker 09/20/2018, patient seen eval examined during the rounds clinically patient doing slightly better cough congestion shortness of breath is improved respiratory status is improved as well she has been tolerating IV steroids on oral antibiotics along with breathing treatments fairly well built to get up and move around 9% to say. There is labs reviewed medications reviewed, sugars are mildly elevated likely related to side effect of steroids 09/19/2018, patient seen eval examined during the rounds clinically patient has been doing better breathing more comfortably no obvious distress is present, is still short of breath on activity and exertion, severity or shortness of breath has improved however 58-year-old female well-known to me for history of severe COPD emphysema patient has been active smoker for week to 10 days has not been feeling well increased cough congestion or shortness of breath and wheezing she was seen evaluated examined in the office recommended to undergo a trial of oral antibiotics and oral prednisone without any significant relief due to ongoing symptoms patient presented into another local hospital last night but was discharged due to persistent symptoms and without any significant resolution came into the emergency department and has been admitted into the hospital, on specific questioning he denies any sputum production denies any hemoptysis but does have cough and wheezing and difficulty in sleeping patient has finished antibiotics and prednisone without any significant relief on outpatient basis Objective - Vital Signs Vital signs: Vital Signs Temp 97.8 F 09/20/18 05:00 Pulse 74 09/20/18 07:46 Resp 16 09/20/18 05:00 BP 137/79 09/20/18 05:00 Pulse Ox 92 L 09/20/18 05:00 Intake & Output 09/19/18 09/20/18 09/20/18 18:59 06:59 18:59 Intake Total 1200 Balance 1200 Intake: Oral 1200 Other: Voiding Method Toilet Toilet Toilet # Voids 3 2 - Exam Constitutional General appearance: average body habitus, cooperative, disheveled, mild distress , thin - EENT Eyes: EOMI, PERRLA, poor dentition, normal appearance ENT: hearing grossly normal, normal oropharynx Ears: bilateral: normal - Neck Carotids: bilateral: upstroke normal Thyroid: bilateral: normal size - Respiratory Respiratory: bilateral: diminished, rhonchi, wheezing, prolonged expiration, negative: dullness, rales - Cardiovascular Rhythm: regular Heart sounds: normal: S1, S2 - Gastrointestinal General gastrointestinal: normal bowel sounds, soft - Neurologic Neurologic: CNII-XII intact - Musculoskeletal Musculoskeletal: gait normal, generalized weakness, strength equal bilaterally - Psychiatric Psychiatric: A&O x's 3, appropriate affect, intact judgment & insight - Labs CBC & Chem 7: 09/18/18 13:05 09/18/18 13:05 Labs: Abnormal Lab Results - Last 24 Hours (Table) 09/18/18 09/19/18 09/19/18 Range/Units 13:05 11:57 17:02 POC Glucose (mg/dL) 179 H 289 H (75-99) mg/dL Hemoglobin A1c 6.2 H (4.0-6.0) % 09/19/18 09/20/18 Range/Units 20:49 06:56 POC Glucose (mg/dL) 182 H 166 H (75-99) mg/dL Hemoglobin A1c (4.0-6.0) % Microbiology - Last 24 Hours (Table) 09/18/18 13:05 Blood Culture - Preliminary Blood No Growth after 24 hours Assessment and Plan Assessment: Acute COPD exacerbation Acute tracheobronchitis Failed outpatient therapy Hypertension dyslipidemia history of lung cancer small cell carcinoma it is status post left upper lobe resection Plan: Bronchodilators Broad-spectrum antibiotics IV steroids, be switched to oral at the time of discharge Breathing treatments Patient education about smoking cessation Continue home medications Increase activity as tolerated Further recommendations pending plan of care as per clinical response of the patient Agree with discharge planning for now follow-up in outpatient setting Time with Patient: Greater than 30
[2018-09-20 11:06] VITALS: PULSE 78
[2018-09-20 11:40] LABS: Glucose,Whole Blood 190 mg/dL (75-99)
--- NOTE | 2018-09-21 08:02 | DS ---
DISCHARGE SUMMARY DATE OF ADMISSION: 09/18/2018 DATE OF DISCHARGE: 09/20/2018 FINAL DIAGNOSES: 1. Acute severe chronic obstructive pulmonary disease exacerbation in a current smoker from acute tracheobronchitis. 2. History of right upper lobe lobectomy for small-cell lung cancer, treated also with chemotherapy. 3. Chronic nicotine dependence, patient current cigarette smoker. 4. Hyperlipidemia. 5. Primary osteoarthritis. 6. Hypothyroidism. CONSULTATION: Dr. Jaime Curry from Pulmonary. HOSPITAL COURSE: This patient with prior lung cancer resection as above presents with severe COPD exacerbation, acute tracheobronchitis and is a smoker. The patient is counseled against the same. The patient was treated with bronchodilators, steroids, antibiotics to which she responded well. Was doing much better. Patient counseled repeatedly about the smoking. PHYSICAL EXAMINATION: On examination, temperature 97.8 pulse 93, respirations 16, blood pressure 137/79, pulse ox 92% on room air. LUNGS: Improved air entry. CARDIOVASCULAR: First and second sounds normal. DISCHARGE MEDICATIONS: 1. Synthroid 100 mcg a day. 2. Lipitor 20 mg q.h.s. 3. Galva 5 one tablet p.o. t.i.d. 4. Chantix as before. 5. Wellbutrin SR 150 mg q.12. 6. Omnicef 300 mg b.i.d. 6 capsules. 7. Atrovent HFA 2 puffs q.i.d. 8. Prednisone taper. Follow up with Dr. Dela Cruz in 3 days. Follow up with Dr. Roque Curry in one week. MMODL / IJN: [id number] /
== END 2018-09-20 12:41 | disposition home or self-care (01) ==
LOC: EC 12:22 → 3NMEDONC 15:05 → INTOOBSV 21:40 → OBSVTOIN 21:40 → UNDODISIN 09-20 12:41
PROVIDERS: ADMIT Hospitalist; ATTEND Hospitalist
DX: J44.1 Chronic obstructive pulmonary disease with (acute) exacerbation (principal); J44.0 Chronic obstructive pulmonary disease with (acute) lower respiratory infection; J20.9 Acute bronchitis, unspecified; Z85.118 Personal history of other malignant neoplasm of bronchus and lung; Z92.21 Personal history of antineoplastic chemotherapy; Z90.2 Acquired absence of lung [part of]; E03.9 Hypothyroidism, unspecified; Z79.890 Hormone replacement therapy; Z79.899 Other long term (current) drug therapy; E78.5 Hyperlipidemia, unspecified; F17.210 Nicotine dependence, cigarettes, uncomplicated; F51.04 Psychophysiologic insomnia; F41.9 Anxiety disorder, unspecified; I10 Essential (primary) hypertension; K75.89 Other specified inflammatory liver diseases; M19.91 Primary osteoarthritis, unspecified site; Z79.82 Long term (current) use of aspirin; Z80.1 Family history of malignant neoplasm of trachea, bronchus and lung; Z83.2 Family history of diseases of the blood and blood-forming organs and certain disorders involving the immune mechanism; Z90.49 Acquired absence of other specified parts of digestive tract
CPT/HCPCS: 96376 ×3; 96372 ×2; 96374; 96375; 99285; 36415; 94640 ×6; 93005; 83880; 80053; 82550; 82553; 83735; 84484; 85025; 85610; 85730; 87040; 87502; 83036; 71046; G0378 ×3; J2060; J2920 ×2; J2930 ×2; J1650 ×2

== ENCOUNTER 2018-09-21 15:19 | Inpatient (IN) | payer OTHER ==
[2018-09-21] MEDS ORDERED: ONDANSETRON 4 MG/2 ML VIAL IVP STA (16:49)
[2018-09-21] MEDS ORDERED: MORPHINE SULFATE 4 MG/ML SYRINGE IVP STA (16:49)
[2018-09-21] MEDS ORDERED: HYDROcodone/APAP 7.5-325MG 1 EACH TAB PO ONE (17:04)
[2018-09-21] MEDS ORDERED: IPRATROPIUM-ALBUTEROL 3 ML NEB INHALATION STA (17:06)
--- NOTE | 2018-09-21 17:07 | ED ---
SOB HPI - General Chief Complaint: Shortness of Breath Stated Complaint: Diff Breathing Time Seen by Provider: 09/21/18 16:34 Source: patient, RN notes reviewed Mode of arrival: wheelchair Limitations: no limitations - History of Present Illness Initial Comments: 58-year-old female presents emergency Department chief complaint of chest pain, shortness breath. Patient states the pain is in her ribs. She states the pain is from her coughing. Patient was discharged yesterday for COPD exacerbation. Patient states his symptoms are much worse at this time. Patient states she does have a history of lung cancer with lobectomy. His primary care physician is Dr. Dela Cruz, senior oracle database administrator is Dr. Curry. Patient reports no fever no chills nonproductive cough. Patient is on Chantix for smoking sensation. Patient reports no nausea vomiting diarrhea constipation. - Related Data Home Medications Medication Instructions Recorded Confirmed Levothyroxine Sodium [Synthroid] 100 mcg PO DAILY 05/09/16 09/21/18 Atorvastatin [Lipitor] 20 mg PO HS 01/18/17 09/21/18 HYDROcodone/APAP 5-325MG [[place] 1 tab PO AC-TID 05/21/18 09/21/18 5-325] Varenicline [Chantix Starter Pack] See Taper PO DIRECTED 09/18/18 09/21/18 predniSONE See Taper PO DAILY 09/21/18 09/21/18 Previous Rx's Medication Instructions Recorded Cefdinir [Omnicef] 300 mg PO BID #6 cap 09/20/18 Ipratropium [place] [Atrovent Hfa] 2 puff INHALATION QID #1 inhaler 09/20/18 Allergies Allergy/AdvReac Type Severity Reaction Status Date / Time No Known Allergies Allergy Verified 09/21/18 16:57 Review of Systems ROS Statement: Those systems with pertinent positive or pertinent negative responses have been documented in the HPI. ROS Other: All systems not noted in ROS Statement are negative. Past Medical History Past Medical History: Cancer, Chest Pain / Angina, COPD, Hyperlipidemia, Osteoarthritis (OA), Thyroid Disorder Additional Past Medical History / Comment(s): lymph node cancer, small cell carcinoma. History of Any Multi-Drug Resistant Organisms: None Reported Past Surgical History: Section, Cholecystectomy Additional Past Surgical History / Comment(s): right upper lung lobectomy Past Anesthesia/Blood Transfusion Reactions: No Reported Reaction Past Psychological History: Anxiety Smoking Status: Current every day smoker Past Alcohol Use History: Occasional Past Drug Use History: Marijuana - Past Family History Mother History Unknown: Yes Family Medical History: Deep Vein Thrombosis (DVT) Father Family Medical History: Cancer Additional Family Medical History / Comment(s): lung cancer Brother(s) Family Medical History: Cancer General Exam Limitations: no limitations General appearance: alert, in no apparent distress Head exam: Present: atraumatic, normocephalic, normal inspection Eye exam: Present: normal appearance, PERRL, EOMI. Absent: scleral icterus, conjunctival injection, periorbital swelling ENT exam: Present: normal exam, normal oropharynx, mucous membranes moist, TM's normal bilaterally, normal external ear exam Neck exam: Present: normal inspection, full ROM. Absent: tenderness, meningismus, lymphadenopathy Respiratory exam: Present: respiratory distress (Mild), wheezes, chest wall tenderness. Absent: normal lung sounds bilaterally, rales, rhonchi, stridor Cardiovascular Exam: Present: normal rhythm, tachycardia, normal heart sounds. Absent: systolic murmur, diastolic murmur, rubs, gallop, clicks Neurological exam: Present: alert, oriented X3, CN II-XII intact Skin exam: Present: warm, dry, intact, normal color. Absent: rash Course Vital Signs 09/21/18 09/21/18 09/21/18 15:22 16:45 17:37 Temperature 97.8 F Pulse Rate 103 H 107 H 105 H Respiratory 18 26 H Rate Blood Pressure 140/84 133/90 O2 Sat by Pulse 95 95 Oximetry 09/21/18 09/21/18 17:48 18:15 Temperature Pulse Rate 103 H 100 Respiratory 20 Rate Blood Pressure 127/70 O2 Sat by Pulse 95 Oximetry Medical Decision Making - Medical Decision Making 4-year-old female presented for dyspnea. Patient was recently discharged for COPD exacerbation. Patient has persistent dyspnea, it is exertional. Patient will be readmitted [place] steroids, further evaluation, repeat breathing treatments. Patient did have CT was negative for acute PE. - Lab Data Result diagrams: 09/21/18 16:48 09/21/18 16:48 Lab Results 09/21/18 09/21/18 09/21/18 Range/Units 16:48 16:48 16:48 WBC 14.2 H (3.8-10.6) k/uL RBC 4.48 (3.80-5.40) m/uL Hgb 13.8 (11.4-16.0) gm/dL Hct 43.0 (34.0-46.0) % MCV 96.1 (80.0-100.0) fL MCH 30.9 (25.0-35.0) pg MCHC 32.2 (31.0-37.0) g/dL RDW 14.2 (11.5-15.5) % Plt Count 256 (150-450) k/uL Neutrophils % 81 % Lymphocytes % 15 % Monocytes % 2 % Eosinophils % 0 % Basophils % 0 % Neutrophils # 11.5 H (1.3-7.7) k/uL Lymphocytes # 2.1 (1.0-4.8) k/uL Monocytes # 0.3 (0-1.0) k/uL Eosinophils # 0.1 (0-0.7) k/uL Basophils # 0.0 (0-0.2) k/uL PT (9.0-12.0) sec INR (<1.2) APTT (22.0-30.0) sec Sodium 139 (137-145) mmol/L Potassium 3.5 (3.5-5.1) mmol/L Chloride 102 (98-107) mmol/L Carbon Dioxide 27 (22-30) mmol/L Anion Gap 10 mmol/L BUN 19 H (7-17) mg/dL Creatinine 0.81 (0.52-1.04) mg/dL Est GFR (CKD-EPI)AfAm >90 (>60 ml/min/1.73 sqM) Est GFR (CKD-EPI)NonAf 80 (>60 ml/min/1.73 sqM) Glucose 215 H (74-99) mg/dL Calcium 10.2 (8.4-10.2) mg/dL Total Bilirubin 0.4 (0.2-1.3) mg/dL AST 28 (14-36) U/L ALT 29 (9-52) U/L Alkaline Phosphatase 75 (38-126) U/L Total Creatine Kinase 93 (30-135) U/L CK-MB (CK-2) 1.0 (0.0-2.4) ng/mL CK-MB (CK-2) Rel Index 1.1 Troponin I <0.012 (0.000-0.034) ng/mL Total Protein 6.9 (6.3-8.2) g/dL Albumin 4.2 (3.5-5.0) g/dL 09/21/18 Range/Units 16:48 WBC (3.8-10.6) k/uL RBC (3.80-5.40) m/uL Hgb (11.4-16.0) gm/dL Hct (34.0-46.0) % MCV (80.0-100.0) fL MCH (25.0-35.0) pg MCHC (31.0-37.0) g/dL RDW (11.5-15.5) % Plt Count (150-450) k/uL Neutrophils % % Lymphocytes % % Monocytes % % Eosinophils % % Basophils % % Neutrophils # (1.3-7.7) k/uL Lymphocytes # (1.0-4.8) k/uL Monocytes # (0-1.0) k/uL Eosinophils # (0-0.7) k/uL Basophils # (0-0.2) k/uL PT 10.0 (9.0-12.0) sec INR 1.0 (<1.2) APTT 20.9 L (22.0-30.0) sec Sodium (137-145) mmol/L Potassium (3.5-5.1) mmol/L Chloride (98-107) mmol/L Carbon Dioxide (22-30) mmol/L Anion Gap mmol/L BUN (7-17) mg/dL Creatinine (0.52-1.04) mg/dL Est GFR (CKD-EPI)AfAm (>60 ml/min/1.73 sqM) Est GFR (CKD-EPI)NonAf (>60 ml/min/1.73 sqM) Glucose (74-99) mg/dL Calcium (8.4-10.2) mg/dL Total Bilirubin (0.2-1.3) mg/dL AST (14-36) U/L ALT (9-52) U/L Alkaline Phosphatase (38-126) U/L Total Creatine Kinase (30-135) U/L CK-MB (CK-2) (0.0-2.4) ng/mL CK-MB (CK-2) Rel Index Troponin I (0.000-0.034) ng/mL Total Protein (6.3-8.2) g/dL Albumin (3.5-5.0) g/dL 09/21/18 17:07 EKG performed at 16:40 sinus tachycardia with incomplete right bundle rate of 108 UT 126 QRS 100 QT/QTC 366/490 no acute changes from prior EKG and 09/18/2018 09/21/18 17:07 Disposition Clinical Impression: COPD exacerbation, Failure of outpatient treatment Disposition: ADMITTED IP TO THIS HOSP Condition: Fair Referrals: Zac Dela Cruz MD [Primary Care Provider] - 1-2 days
--- NOTE | 2018-09-21 17:21 | XR ---
EXAMINATION TYPE: XR chest 2V DATE OF EXAM: 09/21/2018 COMPARISON: 09/18/2018 HISTORY: Cough and chest pain TECHNIQUE: Frontal and lateral views of the chest are obtained. FINDINGS: There is some linear density in the right upper lobe right paraspinal region. Lungs are cl ear of consolidation. There is some linear density in the right lower lobe. Pulmonary vascularity is normal. There is no heart failure. There are chest leads. IMPRESSION: . Minimal scarring and subsegmental atelectasis in the right lung. Right upper lobe scar ring. No change.
[2018-09-21 17:28] LABS: Basophils % (A) 0 %; Eosinophils # (A) 0.1 k/uL (0-0.7); Eosinophils % (A) 0 %; HGB 13.8 gm/dL (11.4-16.0); Lymphocytes # (A) 2.1 k/uL (1.0-4.8); Lymphocytes % (A) 15 %; MCH 30.9 pg (25.0-35.0); MCHC 32.2 g/dL (31.0-37.0); MCV 96.1 fL (80.0-100.0); Mean Platelet Volume 6.7; Monocytes # (A) 0.3 k/uL (0-1.0); Monocytes % (A) 2 %; Neutrophils # (A) 11.5 k/uL (1.3-7.7); Neutrophils % (A) 81 %; Platelet Count 256 k/uL (150-450); RBC 4.48 m/uL (3.80-5.40); RDW 14.2 % (11.5-15.5); WBC 14.2 k/uL (3.8-10.6)
[2018-09-21 17:36] LABS: ALT 29 U/L (9-52); AST 28 U/L (14-36); Albumin 4.2 g/dL (3.5-5.0); Alkaline Phosphatase 75 U/L (38-126); Anion Gap 10 mmol/L; Blood Urea Nitrogen 19 mg/dL (7-17); Calcium 10.2 mg/dL (8.4-10.2); Carbon Dioxide 27 mmol/L (22-30); Chloride 102 mmol/L (98-107); Glucose 215 mg/dL (74-99); Potassium 3.5 mmol/L (3.5-5.1); Sodium 139 mmol/L (137-145); Total Bilirubin 0.4 mg/dL (0.2-1.3); Total Protein 6.9 g/dL (6.3-8.2)
[2018-09-21 17:46] LABS: Partial Thromboplastin Time 20.9 sec (22.0-30.0)
[2018-09-21 17:50] LABS: Creatine Kinase 93 U/L (30-135)
[2018-09-21 18:13] LABS: Troponin I <0.012 ng/mL (0.000-0.034)
--- NOTE | 2018-09-21 19:03 | CT ---
EXAMINATION TYPE: CT chest angio for PE DATE OF EXAM: 09/21/2018 COMPARISON: 09/05/2018 HISTORY: Difficulty breathing. CT DLP: 217 mGycm Automated exposure control for dose reduction was used. CONTRAST: CT Chest for pulmonary embolism performed with with IV Contrast, patient injected with 62 mL of Isovu e 370. FINDINGS: There are 3-D post processed images. There is some linear right upper lobe density consistent with scarring. The other lung luther are oxana rly clear. There is no pleural effusion. Heart size is normal. There is no pericardial effusion. Uppe r abdominal soft tissues are unremarkable. There are clips from cholecystectomy. There is normal contrast opacification of the pulmonary arteries. There are no filling defects. There are no hilar masses. Thoracic aorta shows no evidence of aneurysm or dissection. The ascending aorta measures 3.9 cm. There is spurring in the thoracic spine. IMPRESSION: No evidence of pulmonary embolism. Right upper lobe scarring unchanged. 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
[2018-09-21] MEDS ORDERED: methylPREDNISolone SOD SUCCI 125 MG/2 ML VIAL IV STA (19:17)
[2018-09-21] MEDS ORDERED: ALBUTEROL NEBULIZED 2.5 MG/3 ML INHALATION STA (19:17)
[2018-09-21] MEDS ORDERED: ALBUTEROL NEBULIZED 2.5 MG/3 ML INHALATION PRN (19:18)
[2018-09-21] MEDS: IPRATROPIUM-ALBUTEROL 3 ML NEB INHALATION SCH (19:29)
[2018-09-21] MEDS ORDERED: ACETAMINOPHEN TAB 500 MG TAB PO PRN (21:30)
--- NOTE | 2018-09-21 22:32 | HP ---
HISTORY AND PHYSICAL DATE OF SERVICE: 09/21/2018 CHIEF COMPLAINT: Shortness of breath. HISTORY OF PRESENT ILLNESS: This 58-year-old woman with a past medical history of multiple medical problems, including history of COPD, history of hypertension, hyperlipidemia, history of hypothyroidism, anxiety, being followed by Dr. Dela Cruz in the outpatient setting, was recently admitted to [facility]. The patient had right upper lobectomy and she went home. Currently because of increased shortness of breath, the patient has been readmitted at this time. The patient also follows with Dr. Curry in the outpatient setting. There is no history of any fever, rigor or chills. No history of headache, loss of consciousness, seizures. PAST MEDICAL HISTORY: 1. History of chest pain. 2. History of COPD. 3. Hyperlipidemia. 4. History of section. HOME MEDICATIONS: 1. Prednisone taper. 2. Chantix. 3. Synthroid 100 mcg p.o. daily. 4. Atrovent 2 puffs q.i.d. 5. [place] 5 mg t.i.d. 6. Omnicef 300 mg b.i.d. 7. Lipitor 20 mg at bedtime. ALLERGIES: NONE. FAMILY HISTORY: History of DVT, lung cancer in the family. SOCIAL HISTORY: History of alcohol, THC, smoking. REVIEW OF SYSTEMS: ENT: No diminished hearing. No diminished vision. CARDIOVASCULAR SYSTEM: No angina, palpitations. RESPIRATORY SYSTEM: As mentioned earlier. GI: No nausea, vomiting. : No dysuria or retention. NERVOUS SYSTEM: No numbness, weakness. ALLERGY/IMMUNOLOGY: No asthma, hayfever. MUSCULOSKELETAL: As mentioned earlier. HEMATOLOGY/ONCOLOGY: No history of anemia. ENDOCRINE: No history of diabetes, hypothyroidism. CONSTITUTIONAL: As mentioned earlier. DERMATOLOGY: Negative. RHEUMATOLOGY: Negative. PSYCHIATRY: As mentioned earlier. PHYSICAL EXAMINATION: Patient is alert and oriented x3. Pulse is 103, blood pressure 124/84, respiration 16, temperature 97.4, pulse ox 92% on room air. HEENT: Conjunctivae normal. Oral mucosa moist. NECK: No jugular venous distention. No carotid bruit. No lymph node enlargement. CARDIOVASCULAR SYSTEM: S1, S2 muffled. RESPIRATORY SYSTEM: Breath sounds diminished at the bases. Bilateral scattered rhonchi, expiratory wheezing and crackles. Breathing efforts are markedly increased. ABDOMEN: Soft, nontender. No mass palpable. LEGS: No edema. No swelling. NERVOUS SYSTEM: Higher functions as mentioned earlier. Moves all 4 limbs. No focal motor or sensory deficit. LYMPHATICS: No lymph node palpable in neck, axillae or groin. SKIN: No ulcer, rash, bleeding. JOINTS: No active deforming arthropathy. LABS: WBC 14.2, hemoglobin 13.8. Glucose 215. ASSESSMENT: 1. Chronic obstructive pulmonary disease, acute exacerbation, with acute purulent tracheobronchitis. 2. 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 3. Chronic obstructive pulmonary disease. 4. History of chest pain. 5. Hyperlipidemia. 6. Degenerative joint disease. 7. Hypothyroidism. 8. section. 9. History of cholecystectomy. 10.History of anxiety. 11.History of nicotine dependence. 12.History of tetrahydrocannabinol. RECOMMENDATIONS AND DISCUSSION: In this 58-year-old woman who presented with multiple complex medical issues, we will monitor the patient closely, continue the current medications, continue with symptomatic treatment. Optimize the bronchodilator treatment. Otherwise, consult Dr. Curry. Empiric antibiotics. Guarded prognosis because of multiple complex medical issues. Further recommendations to follow. We will resume the home medications. MMODL / IJN: [id number] /
[2018-09-22] MEDS: VARENICLINE 0.5 MG PO SCH ×2 (00:29→20:25)
[2018-09-22] MEDS: methylPREDNISolone SOD SUCCI 125 MG/2 ML VIAL IV SCH ×5 (00:35→23:19)
[2018-09-22] MEDS: HYDROcodone/APAP 7.5-325MG 1 EACH TAB PO PRN ×3 (00:36→22:12)
[2018-09-22] MEDS: AZITHROMYCIN 500 MG in SODIUM CHLORIDE 0.9% 250 ML IVPB SCH ×2 (01:39→20:35)
[2018-09-22] MEDS: ALPRAZolam 0.25 MG TAB PO PRN ×3 (01:39→22:12)
[2018-09-22 04:10] LABS: Hemoglobin A1C 6.3 % (4.0-6.0)
[2018-09-22] MEDS: LEVOTHYROXINE 100 MCG TAB PO SCH (06:03)
[2018-09-22] MEDS: FORMOTEROL FUMARATE 20 MCG/2 ML NEBU INHALATION SCH ×2 (07:31→19:13)
[2018-09-22] MEDS: IPRATROPIUM-ALBUTEROL 3 ML NEB INHALATION SCH ×4 (07:31→19:13)
[2018-09-22] MEDS: BUDESONIDE 1 MG/2 ML NEBU INHALATION SCH ×2 (07:31→19:13)
[2018-09-22 07:46] LABS: Glucose,Whole Blood 201 mg/dL (75-99)
[2018-09-22] MEDS: INSULIN ASPART 100 UNIT/ML 1 ML 10 ML VIAL SQ SCH ×4 (07:53→20:41)
[2018-09-22] MEDS: PANTOPRAZOLE 40 MG TABLET PO SCH (07:53)
[2018-09-22] MEDS: HEPARIN SODIUM,PORCINE 5,000 UNIT/ML 1 ML VIAL SQ SCH ×2 (07:53→20:25)
[2018-09-22 08:47] LABS: Appearance,Urine Clear (Clear); Bilirubin,Urine Negative (Negative); Blood,Urine Small (Negative); Color,Urine Light Yellow; Glucose,Urine (UA) 3+ (Negative); Ketones,Urine Negative (Negative); Leukocyte Esterase,Urine Negative (Negative); Nitrite,Urine Negative (Negative); Protein,Urine Negative (Negative); RBC,Urine 5 /hpf (0-5); Specific Gravity,Urine 1.019 (1.001-1.035); Squamous Epithelial Cell,Urine <1 /hpf (0-4); Urobilinogen,Urine <2.0 mg/dL (<2.0); WBC,Urine <1 /hpf (0-5)
[2018-09-22] MEDS ORDERED: AZITHROMYCIN 500 MG TAB PO SCH (09:00)
[2018-09-22] MEDS ORDERED: NICOTINE 14MG/24HR PATCH TRANSDERM SCH (09:00)
[2018-09-22] MEDS: MULTIVITAMINS, THERA 1 EACH TAB PO SCH (11:15)
[2018-09-22 11:59] LABS: Glucose,Whole Blood 170 mg/dL (75-99)
--- NOTE | 2018-09-22 16:38 | P.CNPUL ---
History of Present Illness Consult date: 09/22/18 Reason for consult: dyspnea, cough, chest pain, asthma, COPD, pneumonia Chief complaint: Increased shortness of breath and wheezing with cough History of present illness: 58-year-old female with extensive history of smoking and nicotine use has a history of end-stage lung disease. Patient has a history of lung cancer she is status post a right upper lobe resection she was just recently discharged after COPD exacerbation and possibly pneumonia she was doing well for one day but relapse of symptoms occurs with increased wheezing cough congestion shortness breath came into the hospital for further evaluation computed tomography scan of the chest was negative for pulmonary embolism right upper lobe with scarring noted, patient is feeling slightly better now but has a audible bilateral respiratory extreme wheezing, patient is currently being treated with IV steroids breathing treatments and broad-spectrum antibiotic for purulent tracheobronchitis and possible right upper lobe pneumonia Review of Systems All systems: negative Past Medical History Past Medical History: Cancer, Chest Pain / Angina, COPD, Hyperlipidemia, Osteoarthritis (OA), Thyroid Disorder Additional Past Medical History / Comment(s): lymph node cancer, small cell carcinoma. History of Any Multi-Drug Resistant Organisms: None Reported Past Surgical History: Section, Cholecystectomy Additional Past Surgical History / Comment(s): right upper lung lobectomy Past Anesthesia/Blood Transfusion Reactions: No Reported Reaction Past Psychological History: Anxiety Additional Psychological History / Comment(s): . Smoking Status: Former smoker Past Alcohol Use History: Occasional Additional Past Alcohol Use History / Comment(s): has smoked for 36 yrs , 1/2 PPD Past Drug Use History: Marijuana Additional Drug Use History / Comment(s): Denies current Marijuana use - Past Family History Mother History Unknown: Yes Family Medical History: Deep Vein Thrombosis (DVT) Father Family Medical History: Cancer Additional Family Medical History / Comment(s): lung cancer Brother(s) Family Medical History: Cancer Medications and Allergies Home Medications Medication Instructions Recorded Confirmed Type Levothyroxine Sodium [Synthroid] 100 mcg PO DAILY 05/09/16 09/21/18 History Atorvastatin [Lipitor] 20 mg PO HS 01/18/17 09/21/18 History HYDROcodone/APAP 5-325MG [[place] 1 tab PO AC-TID 05/21/18 09/21/18 History 5-325] Varenicline [Chantix Starter Pack] See Taper PO DIRECTED 09/18/18 09/21/18 History Cefdinir [Omnicef] 300 mg PO BID #6 cap 09/20/18 09/21/18 Rx Ipratropium [place] [Atrovent Hfa] 2 puff INHALATION QID #1 inhaler 09/20/18 Rx Aspirin 81 mg PO DAILY 09/21/18 09/21/18 History predniSONE See Taper PO DAILY 09/21/18 09/21/18 History Allergies Allergy/AdvReac Type Severity Reaction Status Date / Time No Known Allergies Allergy Verified 09/21/18 16:57 Physical Exam Vitals: Vital Signs Temp Pulse Pulse Resp BP BP Pulse Ox 09/22/18 15:57 88 09/22/18 15:43 90 09/22/18 14:58 97.7 F 94 17 127/67 94 L 09/22/18 07:53 88 09/22/18 07:44 84 09/22/18 07:31 80 09/22/18 06:25 97.4 F L 78 16 127/71 92 L 09/21/18 21:12 97.4 F L 103 H 16 124/84 92 L 09/21/18 21:10 97.4 F L 103 H 16 124/84 92 L 09/21/18 20:33 98.7 F 96 22 149/89 97 09/21/18 19:37 104 H 18 09/21/18 19:30 96 22 168/94 96 09/21/18 19:27 96 18 09/21/18 18:15 100 20 127/70 95 09/21/18 17:48 103 H 09/21/18 17:37 105 H 09/21/18 16:45 107 H 26 H 133/90 95 Intake and Output 09/22/18 09/22/18 09/22/18 06:59 14:59 22:59 Other: # Voids 2 1 - Constitutional General appearance: average body habitus, cooperative, disheveled, mild distress , thin - EENT Eyes: EOMI, PERRLA, poor dentition, normal appearance ENT: hearing grossly normal Ears: bilateral: normal - Neck Neck: normal ROM Carotids: bilateral: upstroke normal, bruit absent Thyroid: bilateral: normal size - Respiratory Respiratory: bilateral: diminished, rhonchi, wheezing, prolonged expiration, negative: dullness, rales - Cardiovascular Rhythm: regular Heart sounds: normal: S1, S2 - Gastrointestinal General gastrointestinal: normal bowel sounds - Neurologic Neurologic: CNII-XII intact - Musculoskeletal Musculoskeletal: gait normal, generalized weakness, strength equal bilaterally - Psychiatric Psychiatric: A&O x's 3, appropriate affect, intact judgment & insight Results - Laboratory Findings CBC and BMP: 09/21/18 16:48 09/21/18 16:48 PT/INR, D-dimer PT 10.0 sec (9.0-12.0) 09/21/18 16:48 INR 1.0 (<1.2) 09/21/18 16:48 Abnormal lab findings: Abnormal Labs 09/21/18 09/21/18 09/21/18 16:48 16:48 16:48 WBC 14.2 H Neutrophils # 11.5 H APTT 20.9 L BUN 19 H Glucose 215 H POC Glucose (mg/dL) Hemoglobin A1c Urine Glucose (UA) Urine Blood 09/21/18 09/22/18 09/22/18 16:48 07:43 08:30 WBC Neutrophils # APTT BUN Glucose POC Glucose (mg/dL) 201 H Hemoglobin A1c 6.3 H Urine Glucose (UA) 3+ H Urine Blood Small H 09/22/18 11:54 WBC Neutrophils # APTT BUN Glucose POC Glucose (mg/dL) 170 H Hemoglobin A1c Urine Glucose (UA) Urine Blood - Diagnostic Findings Chest x-ray: report reviewed, image reviewed CT scan - chest: report reviewed, image reviewed (Right upper lobe scarring with possible right upper lobe pneumonia) Assessment and Plan Assessment: Right upper lobe pneumonia Severe COPD with acute COPD exacerbation Purulent tracheobronchitis History of lung cancer status post right upper lobe resection Hyperglycemia with likely related to steroids however type 2 diabetes mellitus cannot be excluded Dyslipidemia Hypertension hypertensive cardiovascular disease History of smoking use and substance use Plan: Broad-spectrum antibiotic Breathing treatment IV steroids Patient has been educated about smoking cessation Sliding scale insulin for hyperglycemia protocol Evaluation for type 2 diabetes mellitus on outpatient setting Would recommend to continue antibiotics and steroids for one or 2 more days and monitor clinical course closely Time with Patient: Greater than 30
[2018-09-22 16:59] LABS: Glucose,Whole Blood 210 mg/dL (75-99)
[2018-09-22] MEDS: ATORVASTATIN 20 MG TAB PO SCH (20:25)
[2018-09-22 20:36] LABS: Glucose,Whole Blood 200 mg/dL (75-99)
--- NOTE | 2018-09-23 00:18 | PN ---
PROGRESS NOTE DATE OF SERVICE: 09/22/2018 This 58-year-old woman who was admitted with COPD exacerbation as well as possible right-sided bronchopneumonia, being closely monitored. Dr. Curry is following the patient closely. No chest pain. No palpitations. No fever. EXAM: Alert and oriented x3. Pulse 94, blood pressure 127/60, respirations 17, temperature 97.7, pulse ox 94% on room air. HEENT: Conjunctivae normal. Oral mucosa. NECK: No jugular venous distention. No lymph node enlargement. CARDIOVASCULAR: S1, S2. RESPIRATORY: Diminished breath sounds at the bases. Bilateral scattered rhonchi , no crackles. ABDOMEN: Soft, nontender. LEGS: No swelling. NERVOUS SYSTEM: No focal deficits. LABS: Accu-Cheks 201 and 210. Hemoglobin A1c 6.3 and WBC 14.2. ASSESSMENT: 1. Chronic obstructive pulmonary disease acute exacerbation with acute purulent tracheobronchitis right-sided bronchopneumonia. 2. Possible steroid induced diabetes type 2. 3. History of chest pain. 4. Hyperlipidemia. 5. DJD. 6. Hypothyroidism. 8. History of cholecystectomy. 9. Anxiety. 10.Nicotine dependence. 11.History of THC. RECOMMENDATIONS: Continue current management, continue medications and continue the bronchodilators and empiric antibiotics. Otherwise, closely follow with Pulmonary. Continue with IV steroids. Guarded prognosis because of the multiple complex medical issues and further recommendations to follow. The patient is also on Zithromax and steroids. MMODL / IJN: [id number] / YOLIS
[2018-09-23] MEDS: methylPREDNISolone SOD SUCCI 125 MG/2 ML VIAL IV SCH ×2 (05:55→10:58)
[2018-09-23] MEDS: LEVOTHYROXINE 100 MCG TAB PO SCH (05:55)
[2018-09-23] MEDS: BUDESONIDE 1 MG/2 ML NEBU INHALATION SCH ×2 (07:02→21:56)
[2018-09-23] MEDS: FORMOTEROL FUMARATE 20 MCG/2 ML NEBU INHALATION SCH ×2 (07:02→21:56)
[2018-09-23] MEDS: IPRATROPIUM-ALBUTEROL 3 ML NEB INHALATION SCH ×4 (07:02→21:56)
[2018-09-23 07:23] LABS: Glucose,Whole Blood 218 mg/dL (75-99)
[2018-09-23] MEDS: INSULIN ASPART 100 UNIT/ML 1 ML 10 ML VIAL SQ SCH ×4 (07:43→22:11)
[2018-09-23] MEDS: PANTOPRAZOLE 40 MG TABLET PO SCH (07:44)
[2018-09-23] MEDS: HEPARIN SODIUM,PORCINE 5,000 UNIT/ML 1 ML VIAL SQ SCH ×2 (07:44→22:01)
[2018-09-23] MEDS: VARENICLINE 0.5 MG PO SCH ×2 (07:45→22:01)
[2018-09-23 08:59] LABS: Basophils % (A) 0 %; Eosinophils % (A) 0 %; HCT 36.5 % (34.0-46.0); Lymphocytes # (A) 1.9 k/uL (1.0-4.8); Lymphocytes % (A) 12 %; MCH 31.3 pg (25.0-35.0); MCHC 32.8 g/dL (31.0-37.0); MCV 95.5 fL (80.0-100.0); Mean Platelet Volume 6.8; Monocytes # (A) 0.3 k/uL (0-1.0); Monocytes % (A) 2 %; Neutrophils # (A) 13.5 k/uL (1.3-7.7); Neutrophils % (A) 85 %; Platelet Count 209 k/uL (150-450); RBC 3.83 m/uL (3.80-5.40); RDW 14.1 % (11.5-15.5); WBC 15.8 k/uL (3.8-10.6)
[2018-09-23 09:13] LABS: Calcium 9.7 mg/dL (8.4-10.2); Potassium 3.6 mmol/L (3.5-5.1)
[2018-09-23] MEDS: MULTIVITAMINS, THERA 1 EACH TAB PO SCH (10:58)
[2018-09-23] MEDS: HYDROcodone/APAP 7.5-325MG 1 EACH TAB PO PRN ×2 (10:58→22:08)
[2018-09-23 12:49] LABS: Glucose,Whole Blood 175 mg/dL (75-99)
[2018-09-23 17:19] LABS: Glucose,Whole Blood 203 mg/dL (75-99)
[2018-09-23] MEDS: methylPREDNISolone SOD SUCCI 40 MG/ML 1 ML VIAL IV SCH (17:21)
--- NOTE | 2018-09-23 18:10 | PN ---
PROGRESS NOTE DATE OF SERVICE: 09/23/2018 This 58-year-old woman who was admitted with COPD, acute exacerbation, is also suspected to have bronchopneumonia on the right side. Dr. Curry is following the patient closely. No chest pain. No palpitations. No fever. On exam, alert and oriented x3. Pulse 85, blood pressure 140/76, respiration 17, temperature 97.1, pulse ox 94% on room air. HEENT: Conjunctivae normal. Oral mucosa moist. NECK: No jugular venous distention. No carotid bruit. No lymph node enlargement. CARDIOVASCULAR SYSTEM: S1, S2 muffled. RESPIRATORY SYSTEM: Breath sounds diminished at the bases. A few bilateral rhonchi and crackles. Expiratory wheezing also present. ABDOMEN: Soft, non-tender. No mass palpable. LEGS: No edema. No swelling. NERVOUS SYSTEM: Higher functions as mentioned earlier. Moves all 4 limbs. No focal motor or sensory deficit. LYMPHATICS: No lymph node palpable in neck, axillae or groin. SKIN: No ulcer, rash, bleeding. LABS: WBC 15.8, hemoglobin is 12. ASSESSMENT: 1. Chronic obstructive pulmonary disease, acute exacerbation, with acute purulent tracheobronchitis or right-sided bronchopneumonia. 2. 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 3. History of chest pains. 4. Hyperlipidemia. 5. Degenerative joint disease. 6. Hypothyroidism. 7. History of cholecystectomy. 8. History of anxiety. 9. History of nicotine dependence. 10.History of tetrahydrocannabinol. RECOMMENDATIONS AND DISCUSSION: I recommend to continue current medication, continue with the monitoring, symptomatic treatment. Will taper the steroids. Monitor blood sugars closely. Continue the antibiotics and bronchodilators. Closely follow with Pulmonary, Dr. Curry. Guarded prognosis. Further recommendations to follow. MMODL / IJN: [id number] /
[2018-09-23 20:39] LABS: Glucose,Whole Blood 204 mg/dL (75-99)
[2018-09-23] MEDS: AZITHROMYCIN 500 MG in SODIUM CHLORIDE 0.9% 250 ML IVPB SCH (22:00)
[2018-09-23] MEDS: ALPRAZolam 0.25 MG TAB PO PRN (22:08)
[2018-09-23] MEDS: ATORVASTATIN 20 MG TAB PO SCH (22:10)
[2018-09-24] MEDS: methylPREDNISolone SOD SUCCI 40 MG/ML 1 ML VIAL IV SCH ×4 (00:23→23:51)
[2018-09-24] MEDS: LEVOTHYROXINE 100 MCG TAB PO SCH (05:54)
[2018-09-24 07:06] LABS: Glucose,Whole Blood 198 mg/dL (75-99)
[2018-09-24] MEDS: INSULIN ASPART 100 UNIT/ML 1 ML 10 ML VIAL SQ SCH ×4 (07:53→21:26)
[2018-09-24] MEDS: PANTOPRAZOLE 40 MG TABLET PO SCH (07:54)
[2018-09-24] MEDS: ASPIRIN 81 MG PO SCH (07:54)
[2018-09-24] MEDS: HEPARIN SODIUM,PORCINE 5,000 UNIT/ML 1 ML VIAL SQ SCH ×2 (07:54→21:27)
[2018-09-24] MEDS: VARENICLINE 0.5 MG PO SCH ×2 (07:55→21:27)
[2018-09-24] MEDS: IPRATROPIUM-ALBUTEROL 3 ML NEB INHALATION SCH ×4 (08:46→19:59)
[2018-09-24] MEDS: BUDESONIDE 1 MG/2 ML NEBU INHALATION SCH ×2 (08:46→19:58)
[2018-09-24] MEDS: FORMOTEROL FUMARATE 20 MCG/2 ML NEBU INHALATION SCH ×2 (08:46→19:58)
[2018-09-24 11:06] LABS: Basophils % (A) 0 %; Eosinophils % (A) 0 %; HCT 37.2 % (34.0-46.0); HGB 11.9 gm/dL (11.4-16.0); Lymphocytes # (A) 2.3 k/uL (1.0-4.8); Lymphocytes % (A) 15 %; MCH 30.6 pg (25.0-35.0); MCHC 32.1 g/dL (31.0-37.0); MCV 95.6 fL (80.0-100.0); Mean Platelet Volume 6.6; Monocytes # (A) 0.4 k/uL (0-1.0); Monocytes % (A) 3 %; Neutrophils # (A) 12.6 k/uL (1.3-7.7); Neutrophils % (A) 81 %; Platelet Count 222 k/uL (150-450); RBC 3.89 m/uL (3.80-5.40); RDW 14.3 % (11.5-15.5); WBC 15.5 k/uL (3.8-10.6)
[2018-09-24] MEDS: MULTIVITAMINS, THERA 1 EACH TAB PO SCH (11:13)
[2018-09-24 11:14] LABS: Anion Gap 8 mmol/L; Blood Urea Nitrogen 22 mg/dL (7-17); Calcium 9.6 mg/dL (8.4-10.2); Carbon Dioxide 27 mmol/L (22-30); Chloride 101 mmol/L (98-107); Glucose 268 mg/dL (74-99); Potassium 3.8 mmol/L (3.5-5.1); Sodium 136 mmol/L (137-145)
[2018-09-24 12:29] LABS: Glucose,Whole Blood 230 mg/dL (75-99)
--- NOTE | 2018-09-24 15:46 | P.PN ---
Subjective Progress Note Date: 09/24/18 Principal diagnosis: Right upper lobe pneumonia, acute COPD exacerbation, history of lung cancer status post right upper lobe resection, dyslipidemia, hypertension hypertensive cardiovascular disease, thyroid disorder, degenerative joint disease osteoarthritis September 24 2018, patient seen eval examined and evaluated examined during the rounds clinically patient has been still short of breath with cough wheezing has improved and remains on broad-spectrum antibiotics steroids and breathing treatments, patient has been consult educated at length about smoking cessation 09/23/2018, patient seen eval examined during the rounds still have ongoing shortness of breath but is likely better, patient has nonproductive cough does have ongoing chest tightness with breathing treatments and antibiotic therapy seems to be helping and she is less symptomatic compared to yesterday 58-year-old female with extensive history of smoking and nicotine use has a history of end-stage lung disease. Patient has a history of lung cancer she is status post a right upper lobe resection she was just recently discharged after COPD exacerbation and possibly pneumonia she was doing well for one day but relapse of symptoms occurs with increased wheezing cough congestion shortness breath came into the hospital for further evaluation computed tomography scan of the chest was negative for pulmonary embolism right upper lobe with scarring noted, patient is feeling slightly better now but has a audible bilateral respiratory extreme wheezing, patient is currently being treated with IV steroids breathing treatments and broad-spectrum antibiotic for purulent tracheobronchitis and possible right upper lobe pneumonia Objective - Vital Signs Vital signs: Vital Signs Temp 98.2 F 09/24/18 07:00 Pulse 83 09/24/18 12:41 Resp 16 09/24/18 07:00 BP 136/74 09/24/18 07:00 Pulse Ox 93 L 09/24/18 07:00 Intake & Output 09/23/18 09/24/18 09/24/18 18:59 06:59 18:59 Intake Total 250 Balance 250 Intake: Intake, IV Titration 250 Amount Azithromycin 500 mg In 250 Sodium Chloride 0.9% 250 ml @ 250 mls/hr IVPB [facility] Rx#:[id number] Other: # Voids 3 2 1 - Exam - Constitutional General appearance: average body habitus, cooperative, disheveled, mild distress , thin - EENT Eyes: EOMI, PERRLA, poor dentition, normal appearance ENT: hearing grossly normal Ears: bilateral: normal - Neck Neck: normal ROM Carotids: bilateral: upstroke normal, bruit absent Thyroid: bilateral: normal size - Respiratory Respiratory: bilateral: diminished, rhonchi, wheezing, prolonged expiration, negative: dullness, rales - Cardiovascular Rhythm: regular Heart sounds: normal: S1, S2 - Gastrointestinal General gastrointestinal: normal bowel sounds - Neurologic Neurologic: CNII-XII intact - Musculoskeletal Musculoskeletal: gait normal, generalized weakness, strength equal bilaterally - Psychiatric Psychiatric: A&O x's 3, appropriate affect, intact judgment & insight - Labs CBC & Chem 7: 09/24/18 10:42 09/24/18 10:42 Labs: Abnormal Lab Results - Last 24 Hours (Table) 09/23/18 09/23/18 09/24/18 Range/Units 16:56 20:32 07:01 WBC (3.8-10.6) k/uL Neutrophils # (1.3-7.7) k/uL Sodium (137-145) mmol/L BUN (7-17) mg/dL Glucose (74-99) mg/dL POC Glucose (mg/dL) 203 H 204 H 198 H (75-99) mg/dL 09/24/18 09/24/18 09/24/18 Range/Units 10:42 10:42 12:27 WBC 15.5 H (3.8-10.6) k/uL Neutrophils # 12.6 H (1.3-7.7) k/uL Sodium 136 L (137-145) mmol/L BUN 22 H (7-17) mg/dL Glucose 268 H (74-99) mg/dL POC Glucose (mg/dL) 230 H (75-99) mg/dL Assessment and Plan Assessment: Right upper lobe pneumonia Severe COPD with acute COPD exacerbation Purulent tracheobronchitis History of lung cancer status post right upper lobe resection Hyperglycemia with likely related to steroids however type 2 diabetes mellitus cannot be excluded Dyslipidemia Hypertension hypertensive cardiovascular disease History of smoking use and substance use Plan: Broad-spectrum antibiotic Breathing treatment IV steroids Patient has been educated about smoking cessation Sliding scale insulin for hyperglycemia protocol Evaluation for type 2 diabetes mellitus on outpatient setting Would recommend to continue antibiotics and steroids for one or 2 more days and monitor clinical course closely Time with Patient: Greater than 30
--- NOTE | 2018-09-24 16:41 | PN ---
PROGRESS NOTE DATE OF SERVICE: 09/24/2018 This 58-year-old woman who was admitted COPD acute exacerbation with acute ventricular bronchitis and possible bronchopneumonia slightly better. No chest pain. No palpitations. No fever. EXAM: Alert and oriented x3. Pulse is 81, blood pressure 130/75, respiration 16, temperature 98.2, pulse ox 93% on 3 L. HEENT: Conjunctivae normal. Oral mucosa moist. Neck is no jugular venous distention. CARDIOVASCULAR: S1, S2 RESPIRATORY: Breath sounds diminished in the bases. Bilateral scattered rhonchi and crackles. Expiratory wheezing also present. ABDOMEN: Soft, nontender. LEGS: No edema, no swelling. NERVOUS SYSTEM: No focal deficits. LABS: WBC 15.5. Glucose 230. ASSESSMENT: 1. Chronic obstructive pulmonary disease acute exacerbation with acute purulent tracheobronchitis with right-sided bronchopneumonia. 2. Possible steroid induced diabetes mellitus type 2. 3. History of chest pain. 4. Hyperlipidemia. 5. Degenerative joint disease. 6. Hypothyroidism. 7. History of cholecystectomy. 8. History of anxiety. 9. History of nicotine dependence. 10.History of THC. RECOMMENDATIONS AND DISCUSSION: I recommend to continue current medications, continue with monitoring and symptomatic treatment. Continue IV steroids. Continue the rest of medications. I would recommend initiating metformin small dose and continue to monitor blood sugars. Further recommendations to follow. MMODL / IJN: [id number] /
[2018-09-24 17:11] LABS: Glucose,Whole Blood 172 mg/dL (75-99)
[2018-09-24] MEDS: metFORMIN 500 MG TAB PO SCH (17:39)
[2018-09-24 20:40] LABS: Glucose,Whole Blood 228 mg/dL (75-99)
[2018-09-24] MEDS: ATORVASTATIN 20 MG TAB PO SCH (21:27)
[2018-09-24] MEDS: AZITHROMYCIN 500 MG in SODIUM CHLORIDE 0.9% 250 ML IVPB SCH (21:28)
[2018-09-24] MEDS: ALPRAZolam 0.25 MG TAB PO PRN (21:46)
[2018-09-24] MEDS: HYDROcodone/APAP 7.5-325MG 1 EACH TAB PO PRN (21:46)
[2018-09-25] MEDS: LEVOTHYROXINE 100 MCG TAB PO SCH (06:21)
[2018-09-25] MEDS: FORMOTEROL FUMARATE 20 MCG/2 ML NEBU INHALATION SCH ×2 (07:09→20:10)
[2018-09-25] MEDS: BUDESONIDE 1 MG/2 ML NEBU INHALATION SCH ×2 (07:09→20:10)
[2018-09-25] MEDS: IPRATROPIUM-ALBUTEROL 3 ML NEB INHALATION SCH ×4 (07:09→20:10)
[2018-09-25 07:36] LABS: Glucose,Whole Blood 157 mg/dL (75-99)
[2018-09-25] MEDS: methylPREDNISolone SOD SUCCI 40 MG/ML 1 ML VIAL IV SCH ×3 (07:53→22:58)
[2018-09-25] MEDS: metFORMIN 500 MG TAB PO SCH ×2 (07:53→17:17)
[2018-09-25] MEDS: PANTOPRAZOLE 40 MG TABLET PO SCH (07:53)
[2018-09-25] MEDS: ASPIRIN 81 MG PO SCH (07:54)
[2018-09-25] MEDS: HEPARIN SODIUM,PORCINE 5,000 UNIT/ML 1 ML VIAL SQ SCH ×2 (07:54→21:02)
[2018-09-25] MEDS: INSULIN ASPART 100 UNIT/ML 1 ML 10 ML VIAL SQ SCH ×4 (07:54→21:09)
[2018-09-25] MEDS: VARENICLINE 0.5 MG PO SCH ×2 (07:54→21:01)
[2018-09-25] MEDS: ALPRAZolam 0.25 MG TAB PO PRN ×2 (09:17→22:51)
[2018-09-25 09:20] LABS: Anion Gap 7 mmol/L; Basophils # (A) 0.1 k/uL (0-0.2); Basophils % (A) 1 %; Blood Urea Nitrogen 25 mg/dL (7-17); Calcium 9.7 mg/dL (8.4-10.2); Carbon Dioxide 31 mmol/L (22-30); Chloride 99 mmol/L (98-107); Eosinophils % (A) 0 %; Glucose 168 mg/dL (74-99); HCT 39.9 % (34.0-46.0); HGB 12.7 gm/dL (11.4-16.0); Lymphocytes % (A) 18 %; MCH 31.2 pg (25.0-35.0); MCHC 31.8 g/dL (31.0-37.0); MCV 98.1 fL (80.0-100.0); Mean Platelet Volume 6.2; Monocytes # (A) 0.6 k/uL (0-1.0); Monocytes % (A) 3 %; Neutrophils # (A) 13.3 k/uL (1.3-7.7); Neutrophils % (A) 77 %; Platelet Count 232 k/uL (150-450); Potassium 3.9 mmol/L (3.5-5.1); RBC 4.07 m/uL (3.80-5.40); RDW 14.3 % (11.5-15.5); Sodium 137 mmol/L (137-145); WBC 17.2 k/uL (3.8-10.6)
[2018-09-25 11:46] LABS: Glucose,Whole Blood 155 mg/dL (75-99)
[2018-09-25] MEDS: MULTIVITAMINS, THERA 1 EACH TAB PO SCH (12:05)
[2018-09-25 16:53] LABS: Glucose,Whole Blood 260 mg/dL (75-99)
--- NOTE | 2018-09-25 17:12 | P.PN ---
Subjective Progress Note Date: 09/25/18 Principal diagnosis: Right upper lobe pneumonia, acute COPD exacerbation, history of lung cancer status post right upper lobe resection, dyslipidemia, hypertension hypertensive cardiovascular disease, thyroid disorder, degenerative joint disease osteoarthritis 09/25/2018, he shouldn't seen eval examined during the rounds shortness of breath is improved but still have significant wheezing able to get up and move around now September 24 2018, patient seen eval examined and evaluated examined during the rounds clinically patient has been still short of breath with cough wheezing has improved and remains on broad-spectrum antibiotics steroids and breathing treatments, patient has been consult educated at length about smoking cessation 09/23/2018, patient seen eval examined during the rounds still have ongoing shortness of breath but is likely better, patient has nonproductive cough does have ongoing chest tightness with breathing treatments and antibiotic therapy seems to be helping and she is less symptomatic compared to yesterday 58-year-old female with extensive history of smoking and nicotine use has a history of end-stage lung disease. Patient has a history of lung cancer she is status post a right upper lobe resection she was just recently discharged after COPD exacerbation and possibly pneumonia she was doing well for one day but relapse of symptoms occurs with increased wheezing cough congestion shortness breath came into the hospital for further evaluation computed tomography scan of the chest was negative for pulmonary embolism right upper lobe with scarring noted, patient is feeling slightly better now but has a audible bilateral respiratory extreme wheezing, patient is currently being treated with IV steroids breathing treatments and broad-spectrum antibiotic for purulent tracheobronchitis and possible right upper lobe pneumonia Objective - Vital Signs Vital signs: Vital Signs Temp 98.6 F 09/25/18 15:00 Pulse 90 09/25/18 15:00 Resp 18 09/25/18 15:06 BP 136/81 09/25/18 15:00 Pulse Ox 96 09/25/18 15:00 Intake & Output 09/24/18 09/25/18 09/25/18 18:59 06:59 18:59 Other: Voiding Method Toilet # Voids 3 3 2 - Exam - Constitutional General appearance: average body habitus, cooperative, disheveled, mild distress , thin - EENT Eyes: EOMI, PERRLA, poor dentition, normal appearance ENT: hearing grossly normal Ears: bilateral: normal - Neck Neck: normal ROM Carotids: bilateral: upstroke normal, bruit absent Thyroid: bilateral: normal size - Respiratory Respiratory: bilateral: diminished, rhonchi, wheezing, prolonged expiration, negative: dullness, rales - Cardiovascular Rhythm: regular Heart sounds: normal: S1, S2 - Gastrointestinal General gastrointestinal: normal bowel sounds - Neurologic Neurologic: CNII-XII intact - Musculoskeletal Musculoskeletal: gait normal, generalized weakness, strength equal bilaterally - Psychiatric Psychiatric: A&O x's 3, appropriate affect, intact judgment & insight - Labs CBC & Chem 7: 09/25/18 09:00 09/25/18 09:00 Labs: Abnormal Lab Results - Last 24 Hours (Table) 09/24/18 09/24/18 09/25/18 Range/Units 17:08 20:26 07:33 WBC (3.8-10.6) k/uL Neutrophils # (1.3-7.7) k/uL Carbon Dioxide (22-30) mmol/L BUN (7-17) mg/dL Glucose (74-99) mg/dL POC Glucose (mg/dL) 172 H 228 H 157 H (75-99) mg/dL 09/25/18 09/25/18 09/25/18 Range/Units 09:00 09:00 11:42 WBC 17.2 H (3.8-10.6) k/uL Neutrophils # 13.3 H (1.3-7.7) k/uL Carbon Dioxide 31 H (22-30) mmol/L BUN 25 H (7-17) mg/dL Glucose 168 H (74-99) mg/dL POC Glucose (mg/dL) 155 H (75-99) mg/dL 09/25/18 Range/Units 16:51 WBC (3.8-10.6) k/uL Neutrophils # (1.3-7.7) k/uL Carbon Dioxide (22-30) mmol/L BUN (7-17) mg/dL Glucose (74-99) mg/dL POC Glucose (mg/dL) 260 H (75-99) mg/dL Assessment and Plan Assessment: Right upper lobe pneumonia Severe COPD with acute COPD exacerbation Purulent tracheobronchitis History of lung cancer status post right upper lobe resection Hyperglycemia with likely related to steroids however type 2 diabetes mellitus cannot be excluded Dyslipidemia Hypertension hypertensive cardiovascular disease History of smoking use and substance use Plan: Broad-spectrum antibiotic Breathing treatment IV steroids can be switched to oral at the time of discharge Patient has been educated about smoking cessation Sliding scale insulin for hyperglycemia protocol Evaluation for type 2 diabetes mellitus on outpatient setting Would recommend to continue antibiotics and steroids for one or 2 more days and monitor clinical course closely Time with Patient: Greater than 30
--- NOTE | 2018-09-25 19:09 | PN ---
PROGRESS NOTE DATE OF SERVICE: 05/25/2018 This 58-year-old woman was admitted with COPD acute exacerbation, also had a possible right bronchopneumonia. Dr. Curry is following the patient. No chest pain. No palpitations. No fever. EXAM: Alert and oriented x3. Pulse 90, blood pressure 130/81, respiration 18, temperature 98.2, pulse ox 96% on room air. HEENT: Conjunctivae normal. NECK: No jugular venous distention. CARDIOVASCULAR: S1, S2. RESPIRATORY: Breath sounds diminished in the bases. Bilateral scattered rhonchi and crackles. ABDOMEN: Soft, nontender. LEGS: No edema. NERVOUS SYSTEM: No focal deficits. LAB STUDIES: WBC 17, hemoglobin 12.7. Glucose 168, 155, 260. ASSESSMENT: 1. Chronic obstructive pulmonary disease acute exacerbation with acute purulent tracheobronchitis with right bronchopneumonia. 2. Diabetes mellitus type 2, possible steroid induced. 3. History of chest pain. 4. Hyperlipidemia. 5. History of degenerative joint disease. 6. Hypothyroidism. 7. History of cholecystectomy. 8. History of anxiety. 9. History of nicotine dependence. 10.History of THC. RECOMMENDATIONS AND DISCUSSION: I recommend to continue current management and symptomatic treatment with antibiotics and steroids and closely follow with Pulmonary. Guarded prognosis. Further recommendations to follow. Dr. Topete will follow. MMODL / IJN: [id number] /
[2018-09-25 20:40] LABS: Glucose,Whole Blood 152 mg/dL (75-99)
[2018-09-25] MEDS ORDERED: AZITHROMYCIN 500 MG TAB PO SCH (21:00)
[2018-09-25] MEDS: ATORVASTATIN 20 MG TAB PO SCH (21:01)
[2018-09-25] MEDS: HYDROcodone/APAP 7.5-325MG 1 EACH TAB PO PRN (22:51)
[2018-09-26] MEDS: LEVOTHYROXINE 100 MCG TAB PO SCH (06:02)
[2018-09-26 07:34] LABS: Glucose,Whole Blood 160 mg/dL (75-99)
[2018-09-26] MEDS: VARENICLINE 0.5 MG PO SCH (07:37)
[2018-09-26] MEDS: INSULIN ASPART 100 UNIT/ML 1 ML 10 ML VIAL SQ SCH ×2 (07:38→11:39)
[2018-09-26] MEDS: ASPIRIN 81 MG PO SCH (07:38)
[2018-09-26] MEDS: metFORMIN 500 MG TAB PO SCH (07:38)
[2018-09-26] MEDS: MULTIVITAMINS, THERA 1 EACH TAB PO SCH (07:38)
[2018-09-26] MEDS: PANTOPRAZOLE 40 MG TABLET PO SCH (07:38)
[2018-09-26] MEDS: methylPREDNISolone SOD SUCCI 40 MG/ML 1 ML VIAL IV SCH (07:38)
[2018-09-26] MEDS: HEPARIN SODIUM,PORCINE 5,000 UNIT/ML 1 ML VIAL SQ SCH (07:38)
[2018-09-26 07:56] VITALS: RESP 18
[2018-09-26] MEDS: BUDESONIDE 1 MG/2 ML NEBU INHALATION SCH (09:04)
[2018-09-26] MEDS: FORMOTEROL FUMARATE 20 MCG/2 ML NEBU INHALATION SCH (09:04)
[2018-09-26] MEDS: IPRATROPIUM-ALBUTEROL 3 ML NEB INHALATION SCH ×3 (09:04→15:34)
[2018-09-26 09:39] LABS: Basophils # (A) 0.1 k/uL (0-0.2); Basophils % (A) 0 %; Eosinophils % (A) 0 %; HCT 37.1 % (34.0-46.0); HGB 12.3 gm/dL (11.4-16.0); Lymphocytes % (A) 16 %; MCH 31.2 pg (25.0-35.0); MCHC 33.1 g/dL (31.0-37.0); MCV 94.3 fL (80.0-100.0); Mean Platelet Volume 6.7; Monocytes # (A) 0.6 k/uL (0-1.0); Monocytes % (A) 3 %; Neutrophils # (A) 14.8 k/uL (1.3-7.7); Neutrophils % (A) 79 %; Platelet Count 231 k/uL (150-450); RBC 3.93 m/uL (3.80-5.40); RDW 14.1 % (11.5-15.5); WBC 18.7 k/uL (3.8-10.6)
[2018-09-26 09:47] LABS: Anion Gap 6 mmol/L; Blood Urea Nitrogen 21 mg/dL (7-17); Calcium 9.9 mg/dL (8.4-10.2); Carbon Dioxide 33 mmol/L (22-30); Chloride 99 mmol/L (98-107); Glucose 107 mg/dL (74-99); Potassium 4.4 mmol/L (3.5-5.1); Sodium 138 mmol/L (137-145)
--- NOTE | 2018-09-26 11:16 | P.PN ---
Subjective Progress Note Date: 09/26/18 Principal diagnosis: Right upper lobe pneumonia, acute COPD exacerbation, history of lung cancer status post right upper lobe resection, dyslipidemia, hypertension hypertensive cardiovascular disease, thyroid disorder, degenerative joint disease osteoarthritis 09/26/2018, patient seen eval reexamined during the rounds still have intermittent wheezing but overall quality of breathing has improved patient remains on IV steroids antibiotics and breathing treatment, patient is being planned for possible discharge in next 24 hours 09/25/2018, he shouldn't seen eval examined during the rounds shortness of breath is improved but still have significant wheezing able to get up and move around now September 24 2018, patient seen eval examined and evaluated examined during the rounds clinically patient has been still short of breath with cough wheezing has improved and remains on broad-spectrum antibiotics steroids and breathing treatments, patient has been consult educated at length about smoking cessation 09/23/2018, patient seen eval examined during the rounds still have ongoing shortness of breath but is likely better, patient has nonproductive cough does have ongoing chest tightness with breathing treatments and antibiotic therapy seems to be helping and she is less symptomatic compared to yesterday 58-year-old female with extensive history of smoking and nicotine use has a history of end-stage lung disease. Patient has a history of lung cancer she is status post a right upper lobe resection she was just recently discharged after COPD exacerbation and possibly pneumonia she was doing well for one day but relapse of symptoms occurs with increased wheezing cough congestion shortness breath came into the hospital for further evaluation computed tomography scan of the chest was negative for pulmonary embolism right upper lobe with scarring noted, patient is feeling slightly better now but has a audible bilateral respiratory extreme wheezing, patient is currently being treated with IV steroids breathing treatments and broad-spectrum antibiotic for purulent tracheobronchitis and possible right upper lobe pneumonia Objective - Vital Signs Vital signs: Vital Signs Temp 97.0 F L 09/26/18 07:30 Pulse 88 09/26/18 09:27 Resp 18 09/26/18 07:30 BP 125/75 09/26/18 07:30 Pulse Ox 93 L 09/26/18 07:30 Intake & Output 09/25/18 09/26/18 09/26/18 18:59 06:59 18:59 Intake Total 825 Balance 825 Intake: Oral 825 Other: Voiding Method Toilet Toilet # Voids 2 2 # Bowel Movements 0 - Exam - Constitutional General appearance: average body habitus, cooperative, disheveled, mild distress , thin - EENT Eyes: EOMI, PERRLA, poor dentition, normal appearance ENT: hearing grossly normal Ears: bilateral: normal - Neck Neck: normal ROM Carotids: bilateral: upstroke normal, bruit absent Thyroid: bilateral: normal size - Respiratory Respiratory: bilateral: diminished, rhonchi, wheezing, prolonged expiration, negative: dullness, rales - Cardiovascular Rhythm: regular Heart sounds: normal: S1, S2 - Gastrointestinal General gastrointestinal: normal bowel sounds - Neurologic Neurologic: CNII-XII intact - Musculoskeletal Musculoskeletal: gait normal, generalized weakness, strength equal bilaterally - Psychiatric Psychiatric: A&O x's 3, appropriate affect, intact judgment & insight - Labs CBC & Chem 7: 09/26/18 09:16 09/26/18 09:16 Labs: Abnormal Lab Results - Last 24 Hours (Table) 09/25/18 09/25/18 09/25/18 Range/Units 11:42 16:51 20:26 WBC (3.8-10.6) k/uL Neutrophils # (1.3-7.7) k/uL Carbon Dioxide (22-30) mmol/L BUN (7-17) mg/dL Glucose (74-99) mg/dL POC Glucose (mg/dL) 155 H 260 H 152 H (75-99) mg/dL 09/26/18 09/26/18 09/26/18 Range/Units 07:32 09:16 09:16 WBC 18.7 H (3.8-10.6) k/uL Neutrophils # 14.8 H (1.3-7.7) k/uL Carbon Dioxide 33 H (22-30) mmol/L BUN 21 H (7-17) mg/dL Glucose 107 H (74-99) mg/dL POC Glucose (mg/dL) 160 H (75-99) mg/dL Assessment and Plan Assessment: Right upper lobe pneumonia Severe COPD with acute COPD exacerbation Purulent tracheobronchitis History of lung cancer status post right upper lobe resection Hyperglycemia with likely related to steroids however type 2 diabetes mellitus cannot be excluded Dyslipidemia Hypertension hypertensive cardiovascular disease History of smoking use and substance use Plan: Broad-spectrum antibiotic Breathing treatment IV steroids can be switched to oral at the time of discharge Patient has been educated about smoking cessation Sliding scale insulin for hyperglycemia protocol Evaluation for type 2 diabetes mellitus on outpatient setting Would recommend to continue antibiotics and steroids and monitor clinical course closely Agree with discharge planning Time with Patient: Greater than 30
[2018-09-26 12:31] LABS: Glucose,Whole Blood 162 mg/dL (75-99)
[2018-09-26] MEDS: ALPRAZolam 0.25 MG TAB PO PRN (14:55)
[2018-09-26] MEDS: HYDROcodone/APAP 7.5-325MG 1 EACH TAB PO PRN (14:55)
[2018-09-26 15:14] VITALS: BP 153/83; PULSE 100; TEMP 98.1
--- NOTE | 2018-09-28 07:45 | DS ---
DISCHARGE SUMMARY DATE OF ADMISSION: 09/23/2018 DATE OF DISCHARGE: 09/26/2018 FINAL DIAGNOSES: 1. Pneumonia, suspect gram-negative organism present on admission. 2. Acute severe chronic obstructive pulmonary disease exacerbation. 3. 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 4. Hyperlipidemia. 5. Primary osteoarthritis. 6. Hypothyroidism. CONSULTATION: Dr. Jaime Curry from Pulmonary. HOSPITAL COURSE: This patient was recently in the hospital, presented with acute pneumonia and COPD exacerbation, treated with antibiotics. Doing much better by the time of discharge. Seen by Dr. Curry, who okayed the patient to be discharged. PHYSICAL EXAMINATION: Temperature 98.1, pulse 100, respiration 18, blood pressure 150/83, pulse ox 93% on room air. LUNGS: Mild wheezing. LABS: White count 8.7, potassium 4.4. DISCHARGE MEDICATIONS: 1. Synthroid 100 mcg a day. 2. Lipitor 40 mg q.h.s. 3. [place] 5 one tablet a.c. t.i.d. 4. Chantix pack. 5. Atrovent HFA 2 puffs q.i.d. 6. Aspirin 81 mg a day. 7. Pulmicort 1 mg b.i.d. 8. Bactrim DS 1 tablet p.o. q.12. 9. Prednisone taper. FOLLOWUP: Follow up with Dr. Dela Cruz in 3 days. Follow up with Dr. Jaime Curry in 1 week. MMODL / ESTELLAN: [id number] /
== END 2018-09-26 16:43 | disposition home or self-care (01) | DRG 178 ==
LOC: EC 15:19 → 4MS4W 19:18 → OBSVTOIN 09-23 14:25
PROVIDERS: ADMIT Hospitalist; ATTEND Hospitalist
DX: J15.6 Pneumonia due to other Gram-negative bacteria (principal); J44.0 Chronic obstructive pulmonary disease with (acute) lower respiratory infection; J44.1 Chronic obstructive pulmonary disease with (acute) exacerbation; E11.65 Type 2 diabetes mellitus with hyperglycemia; I11.9 Hypertensive heart disease without heart failure; T38.0X5A Adverse effect of glucocorticoids and synthetic analogues, initial encounter; F41.9 Anxiety disorder, unspecified; E78.5 Hyperlipidemia, unspecified; M19.91 Primary osteoarthritis, unspecified site; E03.9 Hypothyroidism, unspecified; F17.200 Nicotine dependence, unspecified, uncomplicated; Z71.6 Tobacco abuse counseling; Z79.82 Long term (current) use of aspirin; Z79.890 Hormone replacement therapy; Z79.891 Long term (current) use of opiate analgesic; Z79.899 Other long term (current) drug therapy; Z85.118 Personal history of other malignant neoplasm of bronchus and lung; Z90.2 Acquired absence of lung [part of]; Z90.49 Acquired absence of other specified parts of digestive tract; Z98.891 History of uterine scar from previous surgery; Z92.21 Personal history of antineoplastic chemotherapy; Z80.1 Family history of malignant neoplasm of trachea, bronchus and lung; Z83.2 Family history of diseases of the blood and blood-forming organs and certain disorders involving the immune mechanism
CPT/HCPCS: 36415; 71046; 71275; 80048; 80053; 81001; 82550; 82553; 83036; 84484; 85025; 85610; 85730; 93005; 94640; 96374; 99285

== ENCOUNTER → 2018-12-06 | Outpatient (CLI) | payer OTHER ==
[2018-12-06 08:50] LABS: Blood Urea Nitrogen 20 mg/dL (7-17)
--- NOTE | 2018-12-06 10:47 | CT ---
EXAMINATION TYPE: CT ChestAbdPelvis w con DATE OF EXAM: 12/06/2018 COMPARISON: 09/05/2018 HISTORY: C34.11 carcinoma of lung RUL CONTRAST: CT scan of the chest, abdomen and pelvis is performed with Oral Contrast and with IV Contrast, patien t injected with 100 mL of Isovue 300. CT Chest: LUNGS: Postoperative changes right upper lobe without evidence for recurrent or residual mass. The ashtyn ngs are clear and free of infiltrate or atelectasis. No pulmonary nodule or mass is detected. No pl eural effusion or CT evidence of interstitial lung disease. MEDIASTINUM: Thoracic aorta is of normal caliber. The heart is not enlarged. No evidence for media stinal mass or adenopathy. HILAR STRUCTURES: No evidence for mass. No hilar adenopathy is appreciated. OTHER: No significant abnormality. CONTRAST CT ABDOMEN AND PELVIS FINDINGS: LIVER/GB: Cholecystectomy clips are in place. No space occupying hepatic lesion. Biliary tree is of n ormal caliber. Mild fatty liver. PANCREAS: No inflammation. No distinct mass. SPLEEN: No splenic enlargement. No lesion seen. ADRENALS: No nodule. No thickening. KIDNEYS/BLADDER: No hydronephrosis. No nephrolithiasis. No disctinct renal mass. BOWEL: Normal appendix. Normal bowel caliber. No inflammation. GENITAL ORGANS: No gross abnormality. LYMPH NODES: No greater than 1cm abdominal or pelvic lymph nodes are appreciated. AORTA: No significant abnormality. OSSEOUS STRUCTURES: No significant abnormality is seen. OTHER: No significant additional abnormality is seen. IMPRESSION: 1. Stable postoperative changes right upper lobe without evidence for recurrent or residual disease. No evidence for metastatic disease. 2. Mild fatty liver.
== END ==
LOC: RADCTMAIN 07:57
PROVIDERS: ATTEND Internal Medicine Hematology & Oncology
DX: C34.11 Malignant neoplasm of upper lobe, right bronchus or lung (principal); K76.0 Fatty (change of) liver, not elsewhere classified
CPT/HCPCS: 82565; 84520; 71260; 74177; 36415; Q9967

== ENCOUNTER 2019-01-13 02:10 | Emergency (ER) | payer OTHER ==
[2019-01-13 02:21] VITALS: TEMP 100.1
--- NOTE | 2019-01-13 02:35 | ED ---
SOB HPI - General Chief Complaint: Shortness of Breath Stated Complaint: Difficulty Breathing Time Seen by Provider: 01/13/19 02:21 Source: patient, RN notes reviewed Mode of arrival: ambulatory Limitations: no limitations - History of Present Illness Initial Comments: 58-year-old female presents emergency Department chief complaint cough congestion shortness of breath over the last 2 days. Patient does have a history of COPD, lung cancer with lobectomy and chemo I was finished in May 2018. Patient states she still sees Dr. Long. Patient states that she recently started smoking. Patient went of fever and nonproductive cough. Patient's nose increased wheezing. Denies any chest pain. Patient states that she's had URI symptoms, body aches, sore throat, runny nose. - Related Data Home Medications Medication Instructions Recorded Confirmed Levothyroxine Sodium [Synthroid] 100 mcg PO DAILY 05/09/16 09/21/18 Atorvastatin [Lipitor] 20 mg PO HS 01/18/17 09/21/18 HYDROcodone/APAP 5-325MG [[place] 1 tab PO AC-TID 05/21/18 09/21/18 5-325] Varenicline [Chantix Starter Pack] See Taper PO DIRECTED 09/18/18 09/21/18 Aspirin 81 mg PO DAILY 09/21/18 09/21/18 Previous Rx's Medication Instructions Recorded Ipratropium [place] [Atrovent Hfa] 2 puff INHALATION QID #1 inhaler 09/20/18 Budesonide [Pulmicort] 1 mg INHALATION RT-BID #30 nebu 09/26/18 Sulfamethox-Tmp 800-160Mg [Bactrim 1 tab PO Q12HR #10 tab 09/26/18 DS 800-160 mg] predniSONE 10 mg PO DAILY #30 tab 09/26/18 Oseltamivir [Tamiflu] 75 mg PO Q12HR #10 cap 01/13/19 predniSONE 50 mg PO DAILY #5 tab 01/13/19 Allergies Allergy/AdvReac Type Severity Reaction Status Date / Time No Known Allergies Allergy Verified 01/13/19 02:21 Review of Systems ROS Statement: Those systems with pertinent positive or pertinent negative responses have been documented in the HPI. ROS Other: All systems not noted in ROS Statement are negative. Past Medical History Past Medical History: Cancer, Chest Pain / Angina, COPD, Hyperlipidemia, Osteoarthritis (OA), Thyroid Disorder Additional Past Medical History / Comment(s): lymph node cancer, small cell carcinoma. History of Any Multi-Drug Resistant Organisms: None Reported Past Surgical History: Section, Cholecystectomy Additional Past Surgical History / Comment(s): right upper lung lobectomy Past Anesthesia/Blood Transfusion Reactions: No Reported Reaction Past Psychological History: Anxiety Smoking Status: Former smoker Past Alcohol Use History: Occasional Past Drug Use History: Marijuana - Past Family History Mother History Unknown: Yes Family Medical History: Deep Vein Thrombosis (DVT) Father Family Medical History: Cancer Additional Family Medical History / Comment(s): lung cancer Brother(s) Family Medical History: Cancer General Exam Limitations: no limitations General appearance: alert, in no apparent distress Head exam: Present: atraumatic, normocephalic, normal inspection Eye exam: Present: normal appearance, PERRL, EOMI. Absent: scleral icterus, conjunctival injection, periorbital swelling ENT exam: Present: normal exam, normal oropharynx, mucous membranes moist, TM's normal bilaterally, normal external ear exam Neck exam: Present: normal inspection, full ROM. Absent: tenderness, meningismus, lymphadenopathy Respiratory exam: Present: wheezes (Mild throughout). Absent: normal lung so unds bilaterally, respiratory distress, rales, rhonchi, stridor Cardiovascular Exam: Present: normal rhythm, tachycardia, normal heart sounds. Absent: systolic murmur, diastolic murmur, rubs, gallop, clicks Neurological exam: Present: alert, oriented X3, CN II-XII intact Course Vital Signs 01/13/19 01/13/19 01/13/19 02:17 03:08 03:25 Temperature 100.1 F H Pulse Rate 101 H 96 100 Respiratory 20 Rate Blood Pressure 138/74 O2 Sat by Pulse 100 Oximetry Medical Decision Making - Medical Decision Making 58-year-old female presents emergency room for fever cough congestion shortness breath. Patient is found to be febrile with pulse ox 100%. Patient did have mild wheezing consistent with her COPD. Patient lab work, x-ray and influenza testing. Patient was a positive. Patient chest x-ray is unchanged. Patient is improved after DuoNeb treatment. Patient we discharged with prednisone. Patient will follow-up and return for any worsening symptoms. I counseled the patient for smoking cessation for greater than 3 minutes - Lab Data Result diagrams: 01/13/19 02:45 01/13/19 02:45 Lab Results 01/13/19 01/13/19 01/13/19 Range/Units 02:45 02:45 02:45 WBC 5.0 (3.8-10.6) k/uL RBC 4.28 (3.80-5.40) m/uL Hgb 12.8 (11.4-16.0) gm/dL Hct 39.0 (34.0-46.0) % MCV 91.3 (80.0-100.0) fL MCH 29.9 (25.0-35.0) pg MCHC 32.8 (31.0-37.0) g/dL RDW 13.5 (11.5-15.5) % Plt Count 172 (150-450) k/uL Neutrophils % 78 % Lymphocytes % 13 % Monocytes % 5 % Eosinophils % 3 % Basophils % 1 % Neutrophils # 3.9 (1.3-7.7) k/uL Lymphocytes # 0.6 L (1.0-4.8) k/uL Monocytes # 0.2 (0-1.0) k/uL Eosinophils # 0.1 (0-0.7) k/uL Basophils # 0.0 (0-0.2) k/uL Sodium 140 (137-145) mmol/L Potassium 3.5 (3.5-5.1) mmol/L Chloride 105 (98-107) mmol/L Carbon Dioxide 28 (22-30) mmol/L Anion Gap 7 mmol/L BUN 10 (7-17) mg/dL Creatinine 0.76 (0.52-1.04) mg/dL Est GFR (CKD-EPI)AfAm >90 (>60 ml/min/1.73 sqM) Est GFR (CKD-EPI)NonAf 86 (>60 ml/min/1.73 sqM) Glucose 103 H (74-99) mg/dL Plasma Lactic Acid Laci (0.7-2.0) mmol/L Calcium 9.5 (8.4-10.2) mg/dL Magnesium 1.7 (1.6-2.3) mg/dL Total Bilirubin 0.5 (0.2-1.3) mg/dL AST 172 H (14-36) U/L ALT 123 H (9-52) U/L Alkaline Phosphatase 124 (38-126) U/L Total Protein 6.5 (6.3-8.2) g/dL Albumin 4.1 (3.5-5.0) g/dL Influenza Type A RNA Detected H (Not Detectd) Influenza Type B (PCR) Not Detected (Not Detectd) 01/13/19 Range/Units 02:45 WBC (3.8-10.6) k/uL RBC (3.80-5.40) m/uL Hgb (11.4-16.0) gm/dL Hct (34.0-46.0) % MCV (80.0-100.0) fL MCH (25.0-35.0) pg MCHC (31.0-37.0) g/dL RDW (11.5-15.5) % Plt Count (150-450) k/uL Neutrophils % % Lymphocytes % % Monocytes % % Eosinophils % % Basophils % % Neutrophils # (1.3-7.7) k/uL Lymphocytes # (1.0-4.8) k/uL Monocytes # (0-1.0) k/uL Eosinophils # (0-0.7) k/uL Basophils # (0-0.2) k/uL Sodium (137-145) mmol/L Potassium (3.5-5.1) mmol/L Chloride (98-107) mmol/L Carbon Dioxide (22-30) mmol/L Anion Gap mmol/L BUN (7-17) mg/dL Creatinine (0.52-1.04) mg/dL Est GFR (CKD-EPI)AfAm (>60 ml/min/1.73 sqM) Est GFR (CKD-EPI)NonAf (>60 ml/min/1.73 sqM) Glucose (74-99) mg/dL Plasma Lactic Acid Laci 0.9 (0.7-2.0) mmol/L Calcium (8.4-10.2) mg/dL Magnesium (1.6-2.3) mg/dL Total Bilirubin (0.2-1.3) mg/dL AST (14-36) U/L ALT (9-52) U/L Alkaline Phosphatase (38-126) U/L Total Protein (6.3-8.2) g/dL Albumin (3.5-5.0) g/dL Influenza Type A RNA (Not Detectd) Influenza Type B (PCR) (Not Detectd) Disposition Clinical Impression: Influenza A, COPD exacerbation Disposition: HOME SELF-CARE Condition: Stable Instructions (If sedation given, give patient instructions): Influenza (ED) Additional Instructions: Please return to the Emergency Department if symptoms worsen or any other concerns. Prescriptions: predniSONE 50 mg PO DAILY #5 tab Oseltamivir [Tamiflu] 75 mg PO Q12HR #10 cap Is patient prescribed a controlled substance at d/c from ED?: No Referrals: Zac Dela Cruz MD [Primary Care Provider] - 1-2 days Time of Disposition: 03:35
[2019-01-13] MEDS: methylPREDNISolone SOD SUCCI 125 MG/2 ML VIAL IV STA (02:47)
[2019-01-13] MEDS: ACETAMINOPHEN TAB 325 MG TAB PO STA (02:53)
[2019-01-13 03:02] LABS: Basophils % (A) 1 %; Eosinophils # (A) 0.1 k/uL (0-0.7); Eosinophils % (A) 3 %; HGB 12.8 gm/dL (11.4-16.0); Lymphocytes # (A) 0.6 k/uL (1.0-4.8); Lymphocytes % (A) 13 %; MCH 29.9 pg (25.0-35.0); MCHC 32.8 g/dL (31.0-37.0); MCV 91.3 fL (80.0-100.0); Mean Platelet Volume 6.5; Monocytes # (A) 0.2 k/uL (0-1.0); Monocytes % (A) 5 %; Neutrophils # (A) 3.9 k/uL (1.3-7.7); Neutrophils % (A) 78 %; Platelet Count 172 k/uL (150-450); RBC 4.28 m/uL (3.80-5.40); RDW 13.5 % (11.5-15.5)
[2019-01-13] MEDS: IPRATROPIUM-ALBUTEROL 3 ML NEB INHALATION STA (03:08)
[2019-01-13 03:14] LABS: ALT 123 U/L (9-52); AST 172 U/L (14-36); Albumin 4.1 g/dL (3.5-5.0); Alkaline Phosphatase 124 U/L (38-126); Anion Gap 7 mmol/L; Blood Urea Nitrogen 10 mg/dL (7-17); Calcium 9.5 mg/dL (8.4-10.2); Carbon Dioxide 28 mmol/L (22-30); Chloride 105 mmol/L (98-107); Glucose 103 mg/dL (74-99); Magnesium 1.7 mg/dL (1.6-2.3); Potassium 3.5 mmol/L (3.5-5.1); Sodium 140 mmol/L (137-145); Total Bilirubin 0.5 mg/dL (0.2-1.3); Total Protein 6.5 g/dL (6.3-8.2)
--- NOTE | 2019-01-13 03:28 | XR ---
EXAM: XR Chest, 2 Views CLINICAL HISTORY: ITS.REASON XR Reason: difficulty breathing TECHNIQUE: Frontal and lateral views of the chest. COMPARISON: Chest x-ray 09/21/18 IMPRESSION: Unchanged heart size. No consolidation or pleural effusion. Mild right lung volume loss as evidenced by juxtaphrenic peak, which is unchanged.
[2019-01-13 03:40] VITALS: BP 101/68; PULSE 97; RESP 18
== END 2019-01-13 03:56 | disposition home or self-care (01) ==
LOC: EC 02:10
DX: J44.1 Chronic obstructive pulmonary disease with (acute) exacerbation (principal); J10.1 Influenza due to other identified influenza virus with other respiratory manifestations; E78.5 Hyperlipidemia, unspecified; M19.90 Unspecified osteoarthritis, unspecified site; E07.9 Disorder of thyroid, unspecified; Z85.89 Personal history of malignant neoplasm of other organs and systems; Z87.891 Personal history of nicotine dependence; Z79.891 Long term (current) use of opiate analgesic; Z79.82 Long term (current) use of aspirin; Z79.890 Hormone replacement therapy; Z79.899 Other long term (current) drug therapy
CPT/HCPCS: 36415; 94640; 80053; 83605; 83735; 85025; 87040; 87502; 71046; 99285; 96374; J2930

== ENCOUNTER → 2019-03-28 | Outpatient (CLI) | payer OTHER ==
--- NOTE | 2019-03-29 09:52 | CT ---
EXAMINATION TYPE: CT ChestAbdPelvis w con DATE OF EXAM: 03/28/2019 INDICATION: C 34.11 lung cancer, Z03.89 COMPARISON: 12/06/2018 CT DLP: 602.80 mGycm CONTRAST: 100 mL Isovue-300 and oral contrast was utilized. TECHNIQUE: Axial images at 5 mm thick sections. Delayed images through the kidneys. FINDINGS: CT CHEST: Thyroid is not well visualized but appears similar to 12/06/2018 exam. Anterior cervical fusion is note d. Some linear opacities in the anterior right upper lung field. Series 4 image 17 may be some scarring present previously. Stable punctate 0.2 cm nodules along the right mediastinum. Series 4 image 27. No enlarged mediastinal or hilar adenopathy is evident. The ascending aorta diameter at the level of the main pulmonary artery is 3.7 cm. The main pulmonary artery diameter at the bifurcation is 2.4 cm. Some mild coronary artery calcification may be present . CT ABDOMEN: Liver: Normal Spleen: Normal. Small splenule is anterior to the spleen. Pancreas: Normal Adrenal glands: The adrenal glands are normal. Gallbladder: Absent Kidneys: No masses are evident. No hydronephrosis is present. There is a 1.0 cm cyst on the anterio r superior left kidney measuring 5 Hounsfield units. Delayed images were obtained through the kidney s, which remain unremarkable. Aorta: Vascular calcification is within the aorta. Inferior vena cava: Normal. CT PELVIS: Loops of bowel within the abdomen and pelvis are normal. There are loops of bowel which are incom pletely distended or lack oral contrast limiting their evaluation. Appendix: Not identified Urinary bladder: Normal. Genitourinary structures: Uterus is normal. Adnexal regions are within normal limits. Small cyst ruben uring 1.2 cm may be on the left ovary. Osseous structures: No suspicious lytic or sclerotic lesions. IMPRESSIONS: 1. Stable appearance of the chest. No suspicious changes to suggest recurrence or metastatic lung can cer is evident. 2. Suspected small left ovarian cyst. This could be further evaluated and monitored with ultrasound. 3. Left ovarian cyst
== END | disposition home or self-care (01) ==
LOC: RADCTMAIN 15:48
PROVIDERS: ATTEND Internal Medicine Hematology & Oncology
DX: Z08 Encounter for follow-up examination after completed treatment for malignant neoplasm (principal); N83.202 Unspecified ovarian cyst, left side; Z85.118 Personal history of other malignant neoplasm of bronchus and lung
CPT/HCPCS: 71260; 74177; Q9967

== ENCOUNTER → 2019-08-09 | Outpatient (CLI) | payer OTHER ==
--- NOTE | 2019-08-10 05:03 | CT ---
EXAMINATION TYPE: CT ChestAbdPelvis w con DATE OF EXAM: 08/09/2019 COMPARISON: 03/28/2019 and 12/09/2018 HISTORY: 59-year-old female Lung CA follow up TECHNIQUE: Contiguous axial scanning of the chest, abdomen, and pelvis performed with IV Contrast, pa tient injected with 100 mL of Isovue 300. Delayed images through the kidneys were obtained. Coronal/s agittal reconstructions performed. CT DLP: 661.2 mGycm Automated exposure control for dose reduction was used. FINDINGS: CHEST: Heart normal size without pericardial effusion. Scattered coronary vessel calcifications are present. Ascending aorta is ectatic at 3.8 cm with mild great vessel origin atherosclerotic calcifications in conventional arch also branching anatomy. Scattered nonenlarged mediastinal lymph nodes remain unchanged. No thoracic lymphadenopathy by CT siz e criteria. Postsurgical changes of right upper lobectomy with some stable patchy subpleural reticulations anteri or right midlung and some distortion at the right suprahilar level corresponding to postsurgical marcus ge. A 4 mm anteromedial right mid lung pulmonary nodule, axial image 29 remains unchanged dating back to at least 12/06/2018. Background of mild to moderate centrilobular emphysema. No consolidation or pleural effusion. ABDOMEN: No focal liver lesion or biliary ductal dilatation. Mild prominence to the bile duct is unchanged to status post cholecystectomy. Adrenal glands, right kidney, spleen with a couple anterior splenules, and pancreas appear within nor mal limits. 1.1 cm cortical hypodensity anterior upper pole left kidney remains unchanged suggesting a cortical c yst. No dilated small bowel, free fluid, or free air. No mesenteric or retroperitoneal lymphadenopathy. Tiny fatty umbilical hernia. Moderate atherosclerotic calcifications infrarenal abdominal aorta and c ommon iliac arteries without aneurysm. Mild to moderate overall stone burden without pericolonic inflammatory change. Oral contrast progress ed to the ascending colon. Pelvis: Bladder nondistended. Uterus anteverted. Pelvic phleboliths. Both ovaries are visualized. No abnormal fluid collection in the pelvis or pelvic lymphadenopathy. Bones: Mild degenerative changes at the hips. Degenerative disc disease greatest at L2-L3 and then at L4-L5. Additional facet arthropathy lower lumbar spine. Moderate degenerative disc disease also seen in the mid thoracic spine. Partially visualized ACDF hardware. IMPRESSION: 1. POSTSURGICAL CHANGES OF RIGHT UPPER LOBECTOMY. STABLE SUBPLEURAL RETICULAR DENSITIES SUGGESTING SC ARRING ANTERIOR RIGHT MIDLUNG. 2. UNCHANGED 4 MM ANTEROMEDIAL RIGHT MID LUNG PULMONARY NODULE DATING BACK TO AT LEAST 12/06/2018. NO E VIDENT METASTATIC DISEASE. 3. COPD WITH MILD TO MODERATE EMPHYSEMA.
== END | disposition home or self-care (01) ==
LOC: RADCTMAIN 07-28 08:54
PROVIDERS: ATTEND Internal Medicine Hematology & Oncology
DX: J43.9 Emphysema, unspecified (principal); R91.8 Other nonspecific abnormal finding of lung field; R91.1 Solitary pulmonary nodule; Z98.890 Other specified postprocedural states; Z90.2 Acquired absence of lung [part of]
CPT/HCPCS: 71260; 74177; Q9967

== ENCOUNTER → 2019-09-11 | Outpatient (CLI) | payer OTHER ==
--- NOTE | 2019-09-12 09:47 | MM ---
Reason for exam: screening (asymptomatic). Last mammogram was performed 2 years and 4 months ago. History: Patient is postmenopausal. Physical Findings: A clinical breast exam by your physician is recommended on an annual basis and results should be correlated with mammographic findings. MG Screening Mammo w CAD Bilateral CC and MLO view(s) were taken. Prior study comparison: May 17, 2017, bilateral MG screening mammo w CAD. August 04, 2007, bilateral screening mammogram w/CAD. The breast tissue is heterogeneously dense. This may lower the sensitivity of mammography. Finding: There is a 10 mm equal density (isodense) mass in the upper outer quadrant of the left breast. There are benign appearing calcifications. ASSESSMENT: Incomplete: need additional imaging evaluation, BI-RAD 0 RECOMMENDATION: Special view mammogram of the left breast. If lesion persists on supplemental views, image directed ultrasound is recommended. [facility] will attempt to contact patient to return for supplemental views and ultrasound if indicated.
== END | disposition home or self-care (01) ==
LOC: RADMAMWWP 14:28
PROVIDERS: ATTEND Family Medicine
DX: Z12.31 Encounter for screening mammogram for malignant neoplasm of breast (principal)
CPT/HCPCS: 77067

== ENCOUNTER → 2019-09-19 | Outpatient (CLI) | payer OTHER ==
--- NOTE | 2019-09-20 11:02 | MM ---
Reason for exam: additional evaluation requested from abnormal screening. Last mammogram was performed less than 1 month ago. History: Patient is postmenopausal. Physical Findings: Nurse did not find any significant physical abnormalities on exam. MG Work Up Mamm w CAD LT CC and MLO view(s) were taken of the left breast. Prior study comparison: September 11, 2019, bilateral MG screening mammo w CAD. May 17, 2017, bilateral MG screening mammo w CAD. The breast tissue is heterogeneously dense. This may lower the sensitivity of mammography. There is a persistent left upper outer quadrant 1.0cm mass 7cm from nipple, possible lymph node. These results were verbally communicated with the patient and result sheet given to the patient on 09/19/19. ASSESSMENT: Incomplete: need additional imaging evaluation, BI-RAD 0 RECOMMENDATION: Ultrasound of the left breast. upper outer quadrant
--- NOTE | 2019-09-20 11:04 | USB ---
Reason for exam: additional evaluation requested from abnormal screening. History: Patient is postmenopausal. US Breast Workup Limited LT Left limited breast ultrasound including focal area of concern, retroareolar and axilla demonstrates a 0.5 x 0.4 x 0.3cm oval, solid, vascular stalk lesion at 1 o'clock, benign lymph node. These results were verbally communicated with the patient and result sheet given to the patient on 09/19/19. ASSESSMENT: Benign, BI-RAD 2 RECOMMENDATION: Return to routine screening mammogram schedule for both breasts.
== END | disposition home or self-care (01) ==
LOC: RADMAMWWP 14:15
PROVIDERS: ATTEND Family Medicine
DX: R92.8 Other abnormal and inconclusive findings on diagnostic imaging of breast (principal)
CPT/HCPCS: 77065

== ENCOUNTER → 2019-12-05 | Outpatient (CLI) | payer OTHER ==
[2019-12-05 11:04] LABS: African American GFR (CKD) >90 (>60 ml/min/1.73 sqM); Blood Urea Nitrogen 13 mg/dL (7-17); Non-African American GFR(CKD) 88 (>60 ml/min/1.73 sqM)
--- NOTE | 2019-12-05 12:34 | CT ---
EXAMINATION TYPE: CT ChestAbdPelvis w con DATE OF EXAM: 12/05/2019 COMPARISON: CT August 09, [address] PET CT January 01, 2018. HISTORY: Follow up to lung CA CT DLP: 655.6 mGycm. Automated Exposure Control for Dose Reduction was Utilized. CONTRAST: CT scan of the thorax, abdomen and pelvis is performed with IV Contrast, patient injected with 100 mL of Isovue 300. FINDINGS: LUNGS: Postsurgical changes right upper lung from partial pneumonectomy are redemonstrated. Right-michelle ed volume loss with anterior midlung parenchymal scarring is again seen. No new suspicious greater th an 4 mm nodules or masses. Stable right mid lung micronodule axial image 30. No pleural effusion or p neumothorax noted. MEDIASTINUM: Postsurgical changes right hilar level extending anteriorly redemonstrated. There are no new greater than 1 cm hilar or mediastinal lymph nodes. No cardiomegaly or pericardial effusion is seen. Coronary artery calcification redemonstrated which is noted marker for underlying coronary ar ashleigh disease. Stable ascending aortic aneurysm up to 3.9 cm size image 23. LIVER/GB: Cholecystectomy clips are redemonstrated. PANCREAS: No significant abnormality is seen. SPLEEN: Some small splenules anterior inferior aspect of spleen are redemonstrated. ADRENALS: No significant abnormality is seen. KIDNEYS: Simple-appearing thin-walled 1.2 cm cyst anteriorly upper pole of the left kidney redemonstr ated. BOWEL: Oral contrast reaches level of rectum. No suspicious small or large bowel dilatation. GENITAL ORGANS: Anteverted uterus. Normal-sized ovaries. LYMPH NODES: No greater than 1cm abdominal or pelvic lymph nodes are appreciated. OSSEOUS STRUCTURES: Moderate disc space narrowing affecting disc phenomenon L2-L3 level. Vacuum disc phenomenon L4-L5 level. OTHER: Small fat-containing umbilical hernia redemonstrated. IMPRESSION: No suspicious new nodule or mass to suggest neoplastic recurrence. No significant change from most recent CT.
== END | disposition home or self-care (01) ==
LOC: RADCTMAIN 10:19
PROVIDERS: ATTEND Internal Medicine Hematology & Oncology
DX: C34.11 Malignant neoplasm of upper lobe, right bronchus or lung (principal)
CPT/HCPCS: 82565; 84520; 71260; 74177; 36415; Q9967

== ENCOUNTER → 2020-07-03 | Outpatient (CLI) | payer MEDICARE, OTHER ==
--- NOTE | 2020-07-03 15:33 | CT ---
EXAMINATION TYPE: CT ChestAbdPelvis w con DATE OF EXAM: 07/03/2020 COMPARISON: Prior CT 12/05/2019 HISTORY: Observe for mets, history of lung cancer. CT DLP: 861.6 mGycm Automated exposure control for dose reduction was used. CONTRAST: CT scan of the chest, abdomen and pelvis is performed with Oral Contrast and with IV Contrast, patien t injected with 100ml mL of Isovue 300. FINDINGS: LUNGS: There is a lung nodule on axial image 6 in the right upper lobe which measures approximately 6 to 7 mm not seen on prior exam. Scarring present within the right upper lobe is again noted anterior ly. There is no pleural effusion or pneumothorax seen. The tracheobronchial tree is patent. MEDIASTINUM: There are no greater than 1 cm hilar or mediastinal lymph nodes. No pericardial effusi on is seen. AORTA: No significant abnormality is seen. OTHER: No additional significant abnormality is seen. LIVER/GB: No significant interval change is appreciated. PANCREAS: No significant abnormality is seen. SPLEEN: No significant abnormality is seen. ADRENALS: No significant abnormality is seen. KIDNEYS: No significant abnormality is seen. REPRODUCTIVE ORGANS: No gross abnormality seen. BOWEL: Rectosigmoid colon shows some questionable wall thickening, axial image #[id number]. FREE AIR: No Free Air visible. ASCITES: None seen. RETROPERITONEAL ADENOPATHY: No retroperitoneal adenopathy is seen. LYMPH NODES: No greater than 1 cm abdominal or pelvic lymph nodes are appreciated. URINARY BLADDER: No significant abnormality is seen. PELVIC ADENOPATHY: None visualized. OSSEOUS STRUCTURES: No significant abnormality is seen. IMPRESSION: Suspicious interval soft tissue right upper lobe nodule.
== END ==
LOC: RADCTMAIN 11:49
PROVIDERS: ATTEND Internal Medicine Hematology & Oncology
DX: C34.11 Malignant neoplasm of upper lobe, right bronchus or lung (principal)
CPT/HCPCS: 71260; 74177; Q9967

== ENCOUNTER → 2020-10-03 | Outpatient (CLI) | payer MEDICARE, OTHER ==
--- NOTE | 2020-10-03 12:21 | CT ---
EXAMINATION TYPE: CT chest w con DATE OF EXAM: 10/03/2020 COMPARISON: Most recent CT July 03, 2020 and older CTs HISTORY: Lung Cancer right sided diagnosed 2018 with surgery and chemotherapy CT DLP: 332.30 mGycm. Automated Exposure Control for Dose Reduction was Utilized. TECHNIQUE: CT scan of the thorax is performed following with IV Contrast, patient injected with 100 ml mL of Isovue 300. FINDINGS: LUNGS: Postsurgical changes right upper lung from partial pneumonectomy are redemonstrated. Right-michelle ed volume loss with anterior midlung parenchymal scarring is again seen. There is continued enlargeme nt right apical 8 x 7 mm nodule axial image 9 from prior studies.. Stable right mid lung micronodule axial image 27 medially and similar micronodule or scarlike opacity axial image 31 medially. No new n odules or masses. No pleural effusion or pneumothorax noted bilaterally. Background mild underlying e mphysematous change. MEDIASTINUM: Postsurgical changes right hilar region extending anteriorly redemonstrated There are no new greater than 1 cm hilar or mediastinal lymph nodes. No cardiomegaly or pericardial effusion is seen. Redemonstration of coronary artery calcification and stents. Stable ascending aortic aneurysm at 3.8 cm current study axial image 26 OTHER: Cholecystectomy clips redemonstrated. Anterior fusion plate lower cervical spine redemonstrate d. IMPRESSION: Suspected recurrent neoplasm as 8 x 7 mm right apical nodule shows continued interval zeke wth from 6 to [address] and is new from older studies.
== END | disposition home or self-care (01) ==
LOC: RADCTMAIN 10:28
PROVIDERS: ATTEND Internal Medicine Hematology & Oncology
DX: C34.11 Malignant neoplasm of upper lobe, right bronchus or lung (principal)
CPT/HCPCS: 71260; Q9967

== ENCOUNTER → 2020-10-18 | Outpatient (CLI) | payer MEDICARE, OTHER ==
--- NOTE | 2020-10-21 11:19 | PE ---
Nuclear medicine PET/CT HISTORY: Lung carcinoma, subsequent Patient received 10.9 mCi F-18 FDG intravenously and delayed scans were performed from the skull base to the mid thighs. Localization and attenuation correction CT scan was performed. Correlation to prior chest CT 10/03/2020, prior nuclear medicine PET/CT dated 01/01/2018 Chest and neck: Hypermetabolic uptake seen in the right upper lobe lung mass on prior nuclear medicin e PET/CT is no longer seen, patient shows postop change status post right upper lobectomy. There is n odular density seen on prior chest CT dated 10/03/2020, lesion is subcentimeter in size. No mediastina l, axillary, or hilar adenopathy. Coronary artery calcifications are present. No pleural pericardial effusion. ABDOMEN: There is no adrenal mass. Patient is post cholecystectomy. No retroperitoneal adenopathy. No suspicious uptake or evident liver mass. There is no ascites. Uptake along the bowel is likely physi ologic. Osseous structures: The previous identified uptake along the posterior elements of the upper cervical spine on the right is no longer seen, postop changes are noted status post anterior cervical fusion and discectomy. No supraclavicular or cervical adenopathy. No suspicious uptake. IMPRESSION: Subcentimeter right upper lobe lung nodule is present and shows no uptake possibly due to small size, postop changes.
== END | disposition home or self-care (01) ==
LOC: RADPETMAIN 08:10
PROVIDERS: ATTEND Internal Medicine Hematology & Oncology
DX: C34.11 Malignant neoplasm of upper lobe, right bronchus or lung (principal); Z92.21 Personal history of antineoplastic chemotherapy; Z98.890 Other specified postprocedural states
CPT/HCPCS: 78815; A9552

== ENCOUNTER → 2021-01-20 | Outpatient (CLI) | payer MEDICARE, OTHER ==
--- NOTE | 2021-01-21 07:35 | CT ---
EXAMINATION TYPE: CT chest w con DATE OF EXAM: 01/20/2021 COMPARISON: 10/03/2020 HISTORY: Lung ca, obs for mets CT DLP: 421 mGycm, Automated exposure control for dose reduction was used. CONTRAST: Performed injected with 100 mL of Isovue 300. TECHNIQUE: Axial images were obtained at 5 mm thick sections. Reconstructed images are reviewed on [employer] computer in the coronal plane. FINDINGS: There is a an enlarging spiculated mass right apex measuring 1.2 x 0.8 cm. Previous measurement 0.7 x 0.8 cm. There is some linear pneumonitis type changes in the anterior right upper lung field may be some pulm onary fibrosis present previously and stable. No enlarged mediastinal or hilar adenopathy is evident. The ascending aorta diameter at the level o f the main pulmonary artery is 3.9 cm. The main pulmonary artery diameter at the bifurcation is 2.[address] sections are obtained through the upper abdomen. Abdomen is essentially unremarkable. IMPRESSIONS: 1. Enlarging spiculated nodule right apex.
== END | disposition home or self-care (01) ==
LOC: RADCTMAIN 01-13 10:27
PROVIDERS: ATTEND Internal Medicine Hematology & Oncology
DX: C34.11 Malignant neoplasm of upper lobe, right bronchus or lung (principal)
CPT/HCPCS: 82565; 84520; 71260; 36415; Q9967

== ENCOUNTER → 2021-02-17 | Outpatient (CLI) | payer MEDICARE, OTHER | END | disposition home or self-care (01) | LOC: LABWHC1 13:18 | PROVIDERS: ATTEND Surgery | DX: Z01.818 Encounter for other preprocedural examination (principal); Z11.52 Encounter for screening for COVID-19; R91.1 Solitary pulmonary nodule | CPT/HCPCS: U0003; C9803; U0005 ==

== ENCOUNTER → 2021-05-14 | Outpatient (CLI) | payer MEDICARE, OTHER ==
--- NOTE | 2021-05-14 16:19 | CT ---
EXAMINATION TYPE: CT ChestAbdPelvis w con DATE OF EXAM: 05/14/2021 COMPARISON: 01/20/2021 HISTORY: LUNG CA CT DLP: 952.60 mGycm CONTRAST: CT scan of the chest, abdomen and pelvis is performed with Oral Contrast and with IV Contrast, patien t injected with 100 mL of Isovue 300. CT Chest: LUNGS: There is been right apical wedge resection with removal of previously noted spiculated nodule. No evidence for recurrent nodule or a new nodule. Hyperinflation compatible with COPD. Additional po stsurgical change along the lower right chest wall. Mild subpleural fibrosis right upper lobe. Hyperi nflation left lung. MEDIASTINUM: Thoracic aorta is of normal caliber. The heart is not enlarged. No evidence for media stinal mass or adenopathy. HILAR STRUCTURES: No evidence for mass. No hilar adenopathy is appreciated. OTHER: No significant abnormality. CONTRAST CT ABDOMEN AND PELVIS FINDINGS: LIVER/GB: The gallbladder is surgically absent. No space occupying hepatic lesion. Biliary tree is of normal caliber. PANCREAS: No inflammation. No distinct mass. SPLEEN: No splenic enlargement. No lesion seen. ADRENALS: No nodule. No thickening. KIDNEYS/BLADDER: No hydronephrosis. No nephrolithiasis. No disctinct renal mass. BOWEL: Normal appendix. Normal bowel caliber. No inflammation. GENITAL ORGANS: No gross abnormality. LYMPH NODES: No greater than 1cm abdominal or pelvic lymph nodes are appreciated. AORTA: No significant abnormality. OSSEOUS STRUCTURES: No significant abnormality is seen. OTHER: No significant additional abnormality is seen. IMPRESSION: 1. Postsurgical changes of right upper lobe wedge resection with removal of previously noted spiculat ed nodule. No new nodules or recurrent nodules seen. No evidence for metastatic disease.
== END | disposition home or self-care (01) ==
LOC: RADCTMAIN 13:15
PROVIDERS: ATTEND Internal Medicine Hematology & Oncology
DX: Z03.89 Encounter for observation for other suspected diseases and conditions ruled out (principal); C34.11 Malignant neoplasm of upper lobe, right bronchus or lung
CPT/HCPCS: 71260; 74177; Q9967

== ENCOUNTER 2021-05-29 09:48 | Day surgery (SDC) | payer MEDICARE, OTHER ==
[2021-05-29 10:19] VITALS: TEMP 98
[2021-05-29] MEDS ORDERED: LIDOCAINE 1% (10MG/ML) FOR IV START INTRADERMA ONE (10:20)
[2021-05-29] MEDS ORDERED: LACTATED RINGERS 1,000 ML IV ONE (10:20)
[2021-05-29] MEDS ORDERED: LIDOCAINE 1% INJ 10MG/ML (20 ML MDV) ONE (10:43)
[2021-05-29] MEDS ORDERED: PROPOFOL 10 MG/ML 20 ML VIAL IV ONE (10:43)
[2021-05-29] MEDS ORDERED: IV FLUID CONTINUATION 1,000 ML IV ONE (11:06)
--- NOTE | 2021-05-29 11:15 | P.PCN ---
Date of Procedure: 05/29/21 Description of Procedure: BRIEF HISTORY: Patient is a 61-year-old female presenting for outpatient colonoscopy for screening for malignant neoplasm of the colon. She reports last colonoscopy was 4 years ago. She denies any family history of colon cancer. She does report loose stool over the past 6 months. PROCEDURE PERFORMED: Colonoscopy with polypectomy. PREOPERATIVE DIAGNOSIS: Screening for malignant neoplasm of the colon, patient states the last colonoscopy was 4 years ago. ESTIMATED BLOOD LOSS: Minimal. IV sedation per Anesthesia. PROCEDURE: After informed consent was obtained, the patient, was brought into the endoscopy unit. IV sedation was administered by Anesthesia under continuous monitoring. Digital rectal examination was normal. Initially the Olympus CF-190 flexible video colonoscope was then inserted in the rectum, gradually advanced into the cecum without any difficulty. Careful examination was performed as the scope was gradually being withdrawn. Ileocecal valve and the appendiceal orifice were visualized and appeared normal. Prep was excellent. Mucosa of the cecum, ascending colon, transverse colon, descending colon, sigmoid colon, and rectum appeared normal, with random biopsies taken of the right colon, left colon and a normal-appearing terminal ileum. Patient had diminutive polyps measuring 1-2 mm in size removed the descending colon, sigmoid colon 2 and rectum 2. Retroflexion was performed in the rectum and no lesions were seen, low-grade internal hemorrhoids and. The patient tolerated the procedure well. IMPRESSION: 5 diminutive polyps removed with cold forcep polypectomy from the descending colon, 2 from the sigmoid colon, and 2 from the rectum. Normal-appearing colon from rectum to cecum and terminal ileum with random biopsies taken of the right colon, left colon and terminal ileum. RECOMMENDATIONS: Findings of this examination were discussed with the patient and her family. Okay to resume diet. Okay to resume medications. Await pathology from biopsies and polypectomy. Recommend repeat colonoscopy for screening in 5 years for colon polyps pending pathology from polypectomy.
[2021-05-29 11:26] VITALS: BP 147/80; PULSE 86; RESP 18
== END 2021-05-29 11:48 | disposition home or self-care (01) ==
LOC: ORWHC2ENDO 09:48
PROVIDERS: ATTEND Internal Medicine
DX: Z12.11 Encounter for screening for malignant neoplasm of colon (principal); D12.4 Benign neoplasm of descending colon; D12.5 Benign neoplasm of sigmoid colon; K62.1 Rectal polyp; E78.5 Hyperlipidemia, unspecified; J44.9 Chronic obstructive pulmonary disease, unspecified; E07.9 Disorder of thyroid, unspecified; F12.90 Cannabis use, unspecified, uncomplicated; F17.210 Nicotine dependence, cigarettes, uncomplicated
CPT/HCPCS: 45380; 88305; J2001; J2704

== ENCOUNTER → 2021-09-11 | Outpatient (CLI) | payer MEDICARE, OTHER ==
--- NOTE | 2021-09-11 13:09 | CT ---
EXAMINATION TYPE: CT ChestAbdPelvis w con DATE OF EXAM: 09/11/2021 COMPARISON: Most recent CT May 14, 2021 and older studies HISTORY: Lung cancer right-sided diagnosed 2018 CT DLP: 698.9 mGycm. Automated Exposure Control for Dose Reduction was Utilized. CONTRAST: CT scan of the thorax, abdomen and pelvis is performed with oral and with IV Contrast, patient inject ed with 100 mL of Isovue 300. FINDINGS: LUNGS: Postsurgical changes right upper lung from partial pneumonectomy are redemonstrated. Right-michelle ed volume loss with superior and anterior upper to mid lung parenchymal scarring is again seen. No ne w suspicious greater than 4 mm nodules or masses. Stable right mid lung anteromedial micronodule axia l image 33 current study. No pleural effusion or pneumothorax noted. MEDIASTINUM: Postsurgical changes right hilar level extending anteriorly and superiorly redemonstrate d. There are no new greater than 1 cm hilar or mediastinal lymph nodes. No cardiomegaly or pericard ial effusion is seen. Coronary artery calcification redemonstrated . Stable ascending aortic aneurys m up to 3.8 cm size axial image 27. LIVER/GB: Cholecystectomy clips are redemonstrated. PANCREAS: No significant abnormality is seen. SPLEEN: Some small splenules anterior inferior aspect of spleen are redemonstrated. ADRENALS: No significant abnormality is seen. KIDNEYS: Simple-appearing thin-walled 1.2 cm cyst anteriorly upper pole of the left kidney axial imag e 61 redemonstrated. BOWEL: Oral contrast reaches level of terminal ileum. No suspicious small or large bowel dilatation. GENITAL ORGANS: Anteverted uterus. Normal-sized ovaries. LYMPH NODES: No greater than 1cm abdominal or pelvic lymph nodes are appreciated. OSSEOUS STRUCTURES: Moderate to severe disc space narrowing with sclerosis right L2-L3 level. Vacuum disc phenomenon L4-L5 level redemonstrated. OTHER: Small fat-containing umbilical hernia redemonstrated. IMPRESSION: Posttreatment changes redemonstrated. No suspicious new nodule or mass to suggest active neoplastic recurrence. No significant change from most recent CT.
== END | disposition home or self-care (01) ==
LOC: RADCTMAIN 10:21
PROVIDERS: ATTEND Internal Medicine Hematology & Oncology
DX: C34.11 Malignant neoplasm of upper lobe, right bronchus or lung (principal)
CPT/HCPCS: 74177; 71260; Q9967

== ENCOUNTER → 2021-09-23 | Outpatient (CLI) | payer MEDICARE, OTHER ==
--- NOTE | 2021-09-24 03:41 | MR ---
EXAMINATION TYPE: MR lumbar spine wo con DATE OF EXAM: 09/23/2021 COMPARISON: 05/10/2017 HISTORY: Low back pain, HX lung ca Multiplanar multiecho imaging of the lumbar spine without contrast. Vertebra have normal alignment. There is some degenerative disc space narrowing at L2-3 L3-4. There i s some spurring of the endplates posteriorly from L2 to L5 with posterior disc bulging. There is face t arthropathy and lateral recess stenosis at L4-5. There is no lumbar paraspinal mass. The sacroiliac joints are intact. There is no compression fracture. The lumbar neural foramina are fairly well-main tained. IMPRESSION: Multilevel degenerative posterior disc herniation and disc space narrowing from L3 to the L5 that is not adversely changed compared to old exam. There is some L4-5 mild lateral recess stenosis. No fract ure. No evidence of metastatic disease.
== END | disposition home or self-care (01) ==
LOC: RADMRIMAIN 16:41
PROVIDERS: ATTEND Psychiatry & Neurology Neurology
DX: M51.36 Other intervertebral disc degeneration, lumbar region (principal)
CPT/HCPCS: 72148

== ENCOUNTER → 2022-04-24 | Outpatient (CLI) | payer MEDICARE, OTHER ==
--- NOTE | 2022-04-25 07:54 | CT ---
EXAMINATION TYPE: CT ChestAbdPelvis w con DATE OF EXAM: 04/24/2022 COMPARISON: 12/16/2021 HISTORY: lung ca- obs for mets CT DLP: 952.2 mGycm CONTRAST: CT scan of the chest, abdomen and pelvis is performed with Oral Contrast and with IV Contrast, patien t injected with 100ml mL of Isovue 300. CT Chest: Low LUNGS: Stable resection right upper lobe with post therapeutic interstitial changes. There is also re section of anterior upper rib. Stable intercostal herniation between the posterior aspects of right r ibs 9 and 10. Stable 4.5 mm pulmonary nodule right upper lobe medially image 29 of 58. No new nodules identified at this time. Low MEDIASTINUM: Thoracic aorta is of normal caliber. The heart is not enlarged. No evidence for media stinal mass or adenopathy. HILAR STRUCTURES: No evidence for mass. No hilar adenopathy is appreciated. OTHER: No significant abnormality. CONTRAST CT ABDOMEN AND PELVIS FINDINGS: LIVER/GB: There is evidence of hepatic steatosis. The gallbladder is surgically absent. No space occu pying hepatic lesion. Biliary tree is of normal caliber. PANCREAS: No inflammation. No distinct mass. SPLEEN: No splenic enlargement. No lesion seen. ADRENALS: No nodule. No thickening. KIDNEYS/BLADDER: No hydronephrosis. No nephrolithiasis. Stable cyst upper pole left kidney. BOWEL: Normal appendix. Normal bowel caliber. No inflammation. GENITAL ORGANS: No gross abnormality. LYMPH NODES: No greater than 1cm abdominal or pelvic lymph nodes are appreciated. AORTA: No significant abnormality. OSSEOUS STRUCTURES: No significant abnormality is seen. OTHER: No significant additional abnormality is seen. IMPRESSION: 1. Stable postoperative and posttherapeutic changes right upper lobe. 2. Fatty liver. 3. No CT evidence to suggest metastatic disease to the chest abdomen or pelvis.
== END | disposition home or self-care (01) ==
LOC: RADCTMAIN 16:10
PROVIDERS: ATTEND Internal Medicine Hematology & Oncology
DX: Z03.89 Encounter for observation for other suspected diseases and conditions ruled out (principal); C34.11 Malignant neoplasm of upper lobe, right bronchus or lung; K76.0 Fatty (change of) liver, not elsewhere classified
CPT/HCPCS: 71260; 74177; Q9967

== ENCOUNTER → 2022-11-18 | Outpatient (CLI) | payer MEDICARE, OTHER ==
--- NOTE | 2022-11-18 16:35 | CT ---
EXAMINATION TYPE: CT chest w con DATE OF EXAM: 11/18/2022 COMPARISON: 04/24/2022, 12/16/2021 HISTORY: 62-year-old female C34.11, Carcinoma of lung TECHNIQUE: Contiguous axial scanning of the chest after the administration of 70 mL of Isovue 300. C oronal/sagittal reconstructions performed. CT DLP: 419mGycm. Automatic exposure control utilized for a dose reduction. FINDINGS: Heart normal size without pericardial effusion. LAD and RCA coronary artery calcifications are presen t. Ectatic ascending aorta at 3.9 cm redemonstrated. Conventional arch vessel branching anatomy. No thoracic lymphadenopathy by CT size criteria. Postsurgical change along the medial right upper lobe and right suprahilar region. Subpleural interst itial changes along the anterior right upper lobe redemonstrated. Associated volume loss and upward r etraction of the right hilum. No suspicious nodularity. No consolidation or pleural effusion. Unchanged slight nodular thickening left adrenal gland. Benign 2.2 cm cortical cyst anterior left kid miracle. Cholecystectomy clips. Anterior splenules. Bones: Moderate to advanced degenerative disc disease L2-L3. Moderate degenerative disc disease midth oracic spine. No osseous destructive process seen. IMPRESSION: Stable right upper lobe resection changes with secondary scarring and some upward retraction of the r ight hilum. Subpleural interstitial changes linear are similar as well. No suspicious nodularity or m asslike thickening has developed to suggest recurrent or metastatic disease.
== END | disposition home or self-care (01) ==
LOC: RADCTMAIN 13:54
PROVIDERS: ATTEND Internal Medicine Hematology & Oncology
DX: C34.11 Malignant neoplasm of upper lobe, right bronchus or lung (principal); E03.9 Hypothyroidism, unspecified; J44.9 Chronic obstructive pulmonary disease, unspecified; E78.5 Hyperlipidemia, unspecified; J98.4 Other disorders of lung
CPT/HCPCS: 71260; Q9967

== ENCOUNTER 2023-09-14 10:48 | Inpatient (IN) | payer MEDICARE, OTHER ==
[2023-09-14] MEDS ORDERED: IPRATROPIUM-ALBUTEROL 3 ML NEB INHALATION STA (10:55)
[2023-09-14] MEDS ORDERED: ALBUTEROL NEBULIZED 2.5 MG/3 ML INHALATION STA (10:55)
[2023-09-14 11:13] LABS: Basophils # (A) 0.1 k/uL (0-0.2); Basophils % (A) 1 %; Eosinophils # (A) 0.4 k/uL (0-0.7); Eosinophils % (A) 5 %; HCT 43.9 % (34.0-46.0); HGB 14.5 gm/dL (11.4-16.0); Lymphocytes # (A) 3.3 k/uL (1.0-4.8); Lymphocytes % (A) 40 %; MCH 30.2 pg (25.0-35.0); MCV 91.7 fL (80.0-100.0); Mean Platelet Volume 7.4; Monocytes # (A) 0.3 k/uL (0-1.0); Monocytes % (A) 4 %; Neutrophils # (A) 4.1 k/uL (1.3-7.7); Neutrophils % (A) 49 %; Platelet Count 188 k/uL (150-450); RBC 4.79 m/uL (3.80-5.40); RDW 13.3 % (11.5-15.5); WBC 8.4 k/uL (3.8-10.6)
[2023-09-14 11:25] LABS: ALT 20 U/L (4-34); AST 25 U/L (14-36); African American GFR (CKD) >90 (>60 ml/min/1.73 sqM); Albumin 3.9 g/dL (3.5-5.0); Alkaline Phosphatase 85 U/L (38-126); Anion Gap 7 mmol/L; Blood Urea Nitrogen 14 mg/dL (7-17); Calcium 9.6 mg/dL (8.4-10.2); Carbon Dioxide 27 mmol/L (22-30); Chloride 107 mmol/L (98-107); Glucose 113 mg/dL (74-99); Lipase 66 U/L (23-300); Magnesium 1.7 mg/dL (1.6-2.3); Non-African American GFR(CKD) >90 (>60 ml/min/1.73 sqM); Potassium 3.9 mmol/L (3.5-5.1); Sodium 141 mmol/L (137-145); Total Bilirubin 0.5 mg/dL (0.2-1.3); Total Protein 6.3 g/dL (6.3-8.2)
[2023-09-14 11:33] LABS: INR 0.9 (<1.2); NT-Pro-B-Type Natriuretic Pept 26 pg/mL; Partial Thromboplastin Time 22.7 sec (22.0-30.0); Prothrombin Time 10.4 sec (10.0-12.5)
--- NOTE | 2023-09-14 11:50 | XR ---
EXAMINATION TYPE: XR chest 2V DATE OF EXAM: 09/14/2023 11:43 AM COMPARISON: Chest radiographs from 01/13/2019, CT chest abdomen pelvis 05/24/2023 TECHNIQUE: XR chest 2V Frontal and lateral views of the chest. CLINICAL INDICATION:Female, 63 years old with history of Chest Pain; FINDINGS: Lungs/Pleura: There is no evidence of pleural effusion, focal consolidation, or pneumothorax. Chroni c senescent parenchymal change. Stable treatment changes of the right upper lobe. Pulmonary vascularity: Unremarkable. Heart/mediastinum: Cardiomediastinal silhouette is unremarkable. Musculoskeletal: No acute osseous pathology. Cervical fusion hardware. Other: Surgical clips in the upper abdomen. IMPRESSION: Chronic changes without acute pulmonary process.
--- NOTE | 2023-09-14 12:14 | CT ---
EXAMINATION TYPE: CT angio chest DATE OF EXAM: 09/14/2023 COMPARISON: 05/24/23 HISTORY: Chest pain, RICHARD CT DLP: 245.5 mGycm CONTRAST: CT chest with contrast and 3D reconstruction with MIP imaging is performed with IV Contrast, patient injected with 100 mL of Isovue 370. Contrast-enhanced CT of the chest was performed through the course of the pulmonary arteries with silvana g and mediastinal window settings submitted. 3D reconstruction with MIP imaging was also performed. PULMONARY ARTERIES: The pulmonary arteries and their major tributaries are patent. I do not see david dence for sizable filling defect to suggest pulmonary embolic process. LUNGS: Postoperative changes right upper lobe. Fibrotic changes right upper lobe The lungs are clear and free of infiltrate. No evidence for atelectasis. No pulmonary nodule or mass is detected. No p leural effusion. MEDIASTINUM: Thoracic aorta is borderline aneurysmal at 4 cm. The heart is not enlarged. No evidenc e for mediastinal mass. No mediastinal lymph nodes greater than 1cm. HILAR STRUCTURES: No evidence for mass. No hilar lymph nodes greater than 1 cm. UPPER ABDOMEN: No significant abnormality is seen. IMPRESSION: 1. No evidence for Pulmonary embolism at this time. 2. Borderline to mild ascending thoracic aortic aneurysm.
--- NOTE | 2023-09-14 12:46 | ED ---
General Adult HPI - General Chief complaint: Chest Pain Stated complaint: chest pain Time Seen by Provider: 09/14/23 10:54 Source: EMS, RN notes reviewed, old records reviewed Mode of arrival: EMS Limitations: no limitations - History of Present Illness Initial comments: 63 female presents for evaluation of left upper chest pain. This been an ongoing issue for several weeks but significantly worsened today. Was associated with diaphoresis. Patient denies any known history of coronary artery disease. She does have history of COPD and does report cough and mild dyspnea. No fever. No lower extremity pain or swelling. - Related Data Home Medications Medication Instructions Recorded Confirmed Levothyroxine Sodium [Synthroid] 100 mcg PO DAILY 05/09/16 09/14/23 ALPRAZolam [Xanax] 0.25 mg PO BID PRN 11/08/20 09/14/23 Albuterol Nebulized [Ventolin 2.5 mg INHALATION RT-TID PRN 11/08/20 09/14/23 Nebulized] Albuterol Sulfate [Albuterol 1 - 2 puff PO RT-Q6H PRN 09/14/23 09/14/23 Sulfate Hfa] Atorvastatin [Lipitor] 40 mg PO HS 09/14/23 09/14/23 Budesonide/Formoterol Fumarate 2 puff INHALATION RT-BID 09/14/23 09/14/23 [Symbicort 160-4.5 Mcg Inhaler] Gabapentin [Neurontin] 300 mg PO BID 09/14/23 09/14/23 HYDROcodone/APAP 7.5-325MG [[place] 1 tab PO TID 09/14/23 09/14/23 7.5-325] Ibuprofen [Motrin] 800 mg PO BID PRN 09/14/23 09/14/23 Multivitamins, Thera [Multivitamin 1 tab PO DAILY 09/14/23 09/14/23 (formulary)] traZODone HCL [Desyrel] 25 mg PO HS 09/14/23 09/14/23 Allergies Allergy/AdvReac Type Severity Reaction Status Date / Time No Known Allergies Allergy Verified 09/14/23 12:30 Review of Systems ROS Statement: Those systems with pertinent positive or pertinent negative responses have been documented in the HPI. ROS Other: All systems not noted in ROS Statement are negative. Past Medical History Past Medical History: Cancer, COPD, Hyperlipidemia, Osteoarthritis (OA), Thyroid Disorder Additional Past Medical History / Comment(s): lymph node cancer, small cell carcinoma. hx lung ca, chronic back pain, chemo 2018 History of Any Multi-Drug Resistant Organisms: None Reported Past Surgical History: Section, Cholecystectomy Additional Past Surgical History / Comment(s): right upper lung lobectomy, col onoscopy, neck fusion 2018, rt lung wedge surgey March 19, 2021 @ [facility]. Carpal tunnel Sx Rt side. Past Anesthesia/Blood Transfusion Reactions: No Reported Reaction Past Psychological History: Anxiety Smoking Status: Current every day smoker Past Alcohol Use History: Rare Past Drug Use History: Marijuana - Past Family History Mother History Unknown: Yes Family Medical History: Deep Vein Thrombosis (DVT) Father Family Medical History: Cancer Additional Family Medical History / Comment(s): lung cancer Brother(s) Family Medical History: Cancer General Exam Limitations: no limitations General appearance: alert, in no apparent distress Head exam: Present: atraumatic, normocephalic Eye exam: Present: normal appearance, PERRL ENT exam: Present: normal exam Neck exam: Present: normal inspection. Absent: tenderness, meningismus Respiratory exam: Present: normal lung sounds bilaterally. Absent: respiratory distress, wheezes Cardiovascular Exam: Present: normal rhythm, bradycardia GI/Abdominal exam: Present: soft. Absent: distended, tenderness, guarding Extremities exam: Present: normal inspection, normal capillary refill. Absent: pedal edema, calf tenderness Neurological exam: Present: alert, oriented X3 Psychiatric exam: Present: normal affect, normal mood Skin exam: Present: warm, dry, intact. Absent: cyanosis, diaphoretic Course Vital Signs 09/14/23 09/14/23 09/14/23 10:49 12:10 12:20 Temperature 98.2 F Pulse Rate 51 L 52 L 66 Respiratory 18 18 18 Rate Blood Pressure 110/56 O2 Sat by Pulse 100 Oximetry Medical Decision Making - Medical Decision Making Was pt. sent in by a medical professional or institution (, PA, [employer], urgent care, hospital, or correction...) When possible be specific @ -[No] Did you speak to anyone other than the patient for history (EMS, parent, family, police, friend...)? What history was obtained from this source @ -[No] Did you review nursing and triage notes (agree or disagree)? Why? @ -[I reviewed and agree with nursing and triage notes] Were old charts reviewed (outside hosp., previous admission, EMS record, old EKG, old radiological studies, urgent care reports/EKG's, correction records)? Report findings @ -[No old charts were reviewed] Differential Diagnosis (chest pain, altered mental status, abdominal pain women, abdominal pain men, vaginal bleeding, weakness, fever, dyspnea, syncope, heada gokul, dizziness, GI bleed, back pain, seizure, CVA, palpatations, mental health, musculoskeletal)? @ -Differential Chest Pain: Stable Angina, Unstable Angina, STEMI, NSTEMI Aortic Dissection, Pneumothorax, Musculoskeletal, Esophageal Spasm GERD, Cholecystitis, Pancreatitis, Zoster, this is not meant to be an all-inclusive list. EKG interpreted by me (3pts min.). @ Sinus bradycardia rate of 50, KS interval 150, QRS duration 101, QTC [address] segment elevation. X-rays interpreted by me (1pt min.). @ -Negative for acute cardio pulmonary findings on chest x-ray CT interpreted by me (1pt min.). @ -CT negative for pulmonary embolism U/S interpreted by me (1pt. min.). @ -[None done] What testing was considered but not performed or refused? (CT, X-rays, U/S, labs)? Why? @ -[None] What meds were considered but not given or refused? Why? @ -[None] Did you discuss the management of the patient with other professionals (professionals i.e. , PA, [employer]AD[employer], lab, RT, psych nurse, criminal justice social worker, dietetic assistant, teacher, quarantine officer, nurse case management)? Give summary Dr. felton Was smoking cessation discussed for >3mins.? @ -[No] Was critical care preformed (if so, how long)? @ -[No] Were there social determinants of health that impacted care today? How? (Homelessness, low income, unemployed, alcoholism, drug addiction, transportation, low edu. Level, literacy, decrease access to med. care, assisted, rehab)? @ -[No] Was there de-escalation of care discussed even if they declined (Discuss DNR or withdrawal of care, Hospice)? DNR status @ -[No] What co-morbidities impacted this encounter? (DM, HTN, Smoking, COPD, CAD, Cancer, CVA, ARF, Chemo, Hep., AIDS, mental health diagnosis, sleep apnea, morbid obesity)? @ -COPD Was patient admitted / discharged? Hospital course, mention meds given and route, prescriptions, significant lab abnormalities, going to OR and other pertinent info. @63-year-old female with ongoing chest pain, worse today associated cough and dyspnea. Patient's pain has a typical feature of diaphoresis but is otherwise atypical pain. Her d-dimer was mildly elevated and CT angiography was performed to rule out pulmonary embolism. Her noted troponin is negative. She will be observed for treatment of both COPD exacerbation and rule out of ACS. Serial tr oponins will be ordered. Case discussed with [facility] hospitalist Undiagnosed new problem with uncertain prognosis? @ -[No] Drug Therapy requiring intensive monitoring for toxicity (Heparin, Nitro, Insulin, Cardizem)? @ -[No] Were any procedures done? @ -[No] Diagnosis/symptom? @ -COPD exacerbation, chest pain Acute, or Chronic, or Acute on Chronic? @ -Acute Uncomplicated (without systemic symptoms) or Complicated (systemic symptoms)? @ -[Complicated Side effects of treatment? @ -[No] Exacerbation, Progression, or Severe Exacerbation? @ -[No] Poses a threat to life or bodily function? How? (Chest pain, [place], [place], pneumonia, PE, COPD, DKA, ARF, appy, cholecystitis, CVA, Diverticulitis, Homicidal, Suicidal, threat to staff... and all critical care pts) @ -Yes, chest pain, COPD - Lab Data Result diagrams: 09/14/23 11:09/14/23 11: Lab Results 09/14/23 09/14/23 09/14/23 Range/Units 11: 11: 11: WBC 8.4 (3.8-10.6) k/uL RBC 4.79 (3.80-5.40) m/uL Hgb 14.5 (11.4-16.0) gm/dL Hct 43.9 (34.0-46.0) % MCV 91.7 (80.0-100.0) fL MCH 30.2 (25.0-35.0) pg MCHC 33.0 (31.0-37.0) g/dL RDW 13.3 (11.5-15.5) % Plt Count 188 (150-450) k/uL MPV 7.4 Neutrophils % 49 % Lymphocytes % 40 % Monocytes % 4 % Eosinophils % 5 % Basophils % 1 % Neutrophils # 4.1 (1.3-7.7) k/uL Lymphocytes # 3.3 (1.0-4.8) k/uL Monocytes # 0.3 (0-1.0) k/uL Eosinophils # 0.4 (0-0.7) k/uL Basophils # 0.1 (0-0.2) k/uL PT 10.4 (10.0-12.5) sec INR 0.9 (<1.2) APTT 22.7 (22.0-30.0) sec D-Dimer 0.90 H (<0.60) mg/L FEU Sodium 141 (137-145) mmol/L Potassium 3.9 (3.5-5.1) mmol/L Chloride 107 (98-107) mmol/L Carbon Dioxide 27 (22-30) mmol/L Anion Gap 7 mmol/L BUN 14 (7-17) mg/dL Creatinine 0.71 (0.52-1.04) mg/dL Est GFR (CKD-EPI)AfAm >90 (>60 ml/min/1.73 sqM) Est GFR (CKD-EPI)NonAf >90 (>60 ml/min/1.73 sqM) Glucose 113 H (74-99) mg/dL Calcium 9.6 (8.4-10.2) mg/dL Magnesium 1.7 (1.6-2.3) mg/dL Total Bilirubin 0.5 (0.2-1.3) mg/dL AST 25 (14-36) U/L ALT 20 (4-34) U/L Alkaline Phosphatase 85 (38-126) U/L Troponin I (0.000-0.034) ng/mL NT-Pro-B Natriuret Pep 26 pg/mL Total Protein 6.3 (6.3-8.2) g/dL Albumin 3.9 (3.5-5.0) g/dL Lipase 66 (23-300) U/L Influenza Type A (PCR) (Not Detectd) Influenza Type B (PCR) (Not Detectd) RSV (PCR) (Not Detectd) SARS-CoV-2 (PCR) (Not Detectd) 09/14/23 09/14/23 Range/Units 11:01 11:01 WBC (3.8-10.6) k/uL RBC (3.80-5.40) m/uL Hgb (11.4-16.0) gm/dL Hct (34.0-46.0) % MCV (80.0-100.0) fL MCH (25.0-35.0) pg MCHC (31.0-37.0) g/dL RDW (11.5-15.5) % Plt Count (150-450) k/uL MPV Neutrophils % % Lymphocytes % % Monocytes % % Eosinophils % % Basophils % % Neutrophils # (1.3-7.7) k/uL Lymphocytes # (1.0-4.8) k/uL Monocytes # (0-1.0) k/uL Eosinophils # (0-0.7) k/uL Basophils # (0-0.2) k/uL PT (10.0-12.5) sec INR (<1.2) APTT (22.0-30.0) sec D-Dimer (<0.60) mg/L FEU Sodium (137-145) mmol/L Potassium (3.5-5.1) mmol/L Chloride (98-107) mmol/L Carbon Dioxide (22-30) mmol/L Anion Gap mmol/L BUN (7-17) mg/dL Creatinine (0.52-1.04) mg/dL Est GFR (CKD-EPI)AfAm (>60 ml/min/1.73 sqM) Est GFR (CKD-EPI)NonAf (>60 ml/min/1.73 sqM) Glucose (74-99) mg/dL Calcium (8.4-10.2) mg/dL Magnesium (1.6-2.3) mg/dL Total Bilirubin (0.2-1.3) mg/dL AST (14-36) U/L ALT (4-34) U/L Alkaline Phosphatase (38-126) U/L Troponin I 0.016 (0.000-0.034) ng/mL NT-Pro-B Natriuret Pep pg/mL Total Protein (6.3-8.2) g/dL Albumin (3.5-5.0) g/dL Lipase (23-300) U/L Influenza Type A (PCR) Not Detected (Not Detectd) Influenza Type B (PCR) Not Detected (Not Detectd) RSV (PCR) Not Detected (Not Detectd) SARS-CoV-2 (PCR) Not Detected (Not Detectd) Disposition Clinical Impression: COPD exacerbation, Chest pain Disposition: ADMITTED IP TO THIS [facility] Condition: Stable Is patient prescribed a controlled substance at d/c from ED?: No Referrals: Gianluca Lux MD [Primary Care Provider] - 1-2 days Time of Disposition: 13:28
[2023-09-14] MEDS ORDERED: ASPIRIN 325 MG TAB PO STA (12:49)
[2023-09-14] MEDS ORDERED: predniSONE 50 MG TAB PO STA (13:23)
[2023-09-14] MEDS ORDERED: NALOXONE 0.4 MG/ML 1 ML VIAL IV PRN (13:24)
[2023-09-14] MEDS ORDERED: ACETAMINOPHEN TAB 325 MG TAB PO PRN (13:24)
[2023-09-14] MEDS ORDERED: HYDROmorphone 0.5 MG/0.5 ML SYRINGE IVP PRN (13:24)
[2023-09-14] MEDS: SODIUM CHLORIDE 0.9% 1,000 ML IV SCH (13:54)
[2023-09-14] MEDS ORDERED: ALPRAZolam 0.25 MG TAB PO PRN (15:09)
[2023-09-14] MEDS: IPRATROPIUM-ALBUTEROL 3 ML NEB INHALATION SCH ×2 (15:19→19:42)
[2023-09-14] MEDS: methylPREDNISolone SOD SUCCI 40 MG/ML 1 ML VIAL IV SCH ×2 (16:23→23:40)
[2023-09-14] MEDS: PANTOPRAZOLE 40 MG/10 ML VIAL IVP SCH ×2 (16:23→21:58)
[2023-09-14] MEDS: HYDROcodone/APAP 7.5-325MG 1 EACH TAB PO SCH ×2 (16:27→21:22)
[2023-09-14] MEDS: SYMBICORT 160-4.5 MCG INHALER INHALATION SCH (19:42)
[2023-09-14] MEDS: ATORVASTATIN 40 MG TAB PO SCH (21:19)
[2023-09-14] MEDS: GABAPENTIN 300 MG CAP PO SCH (21:19)
[2023-09-14] MEDS: traZODone HCL 50 MG TAB PO SCH (21:20)
--- NOTE | 2023-09-15 01:37 | HP ---
HISTORY AND PHYSICAL CHIEF COMPLAINT: Chest pain. HISTORY OF PRESENT ILLNESS: This is a 63-year-old woman with a past medical history of multiple medical problems COPD, lymph node cancer, history of small cell carcinoma of the lung, who is also being evaluated for cardiomegaly with a cardiac MRI as an outpatient by Cardiology. Currently, the patient is complaining of heartburn and chest discomfort in the upper part of the chest for the last 1 week. The EKG showed sinus bradycardia. The D- dimer is 0.90. The CAT scan of the chest showed small ascending aortic aneurysm. Glucose was 113. Troponin 0.016. There is no history of any fever, rigors or chills. PAST MEDICAL HISTORY: Reviewed include cardiomegaly, COPD, hyperlipidemia, multiple medical issues and chart is also reviewed. HOME MEDICATIONS: Reviewed include Motrin, dose and rest of medications reviewed. ALLERGIES: None. FAMILY HISTORY: History of DVT, lung cancer in the family. SOCIAL HISTORY: History of smoking. REVIEW OF SYSTEMS: A 14-point review is negative except as mentioned earlier. PHYSICAL EXAMINATION: VITAL SIGNS: Pulse is 51, blood pressure 110/53, respirations 18. HEENT: Conjunctivae normal. NECK: No jugular venous distention. CARDIOVASCULAR: S1 and S2. RESPIRATIONS: Breath sounds diminished at the bases. ABDOMEN: Soft. LEGS: No edema. NERVOUS SYSTEM: No focal deficits. LABORATORY DATA: Reviewed. ASSESSMENT: 1. Chest pain, possible unstable angina. 2. Mild ascending aortic aneurysm in the CT scan. 3. History of chronic obstructive pulmonary disease. 4. Hyperlipidemia. 5. History of lymph node cancer. 6. Small cell lung cancer. 7. Degenerative joint disease. 8. Multiple medical issues. 9. Ongoing nicotine dependence. RECOMMENDATIONS AND DISCUSSION: This is a 63-year-old woman who presented with multiple complex medical issues, we will monitor the patient closely. Continue the current medications. Continue symptomatic treatment. I recommend Cardiology consultation and resume the home medications, bronchodilators. The prognosis guarded because of multiple complex medical issues. Further recommendations to follow. Symptomatic treatment also will be provided. See orders for further details. MMODL / IJN: [id number] / MTDD
[2023-09-15] MEDS: LEVOTHYROXINE 100 MCG TAB PO SCH (06:53)
[2023-09-15] MEDS: MULTIVITAMINS, THERA 1 EACH TAB PO SCH (08:09)
[2023-09-15] MEDS: HYDROcodone/APAP 7.5-325MG 1 EACH TAB PO SCH ×3 (08:10→21:23)
[2023-09-15] MEDS: GABAPENTIN 300 MG CAP PO SCH ×2 (08:10→19:56)
[2023-09-15] MEDS: PANTOPRAZOLE 40 MG/10 ML VIAL IVP SCH ×2 (08:11→19:56)
[2023-09-15] MEDS: methylPREDNISolone SOD SUCCI 40 MG/ML 1 ML VIAL IV SCH ×2 (08:11→17:47)
[2023-09-15] MEDS ORDERED: ASPIRIN 325 MG TAB PO STA (08:55)
[2023-09-15] MEDS ORDERED: ALPRAZolam 0.25 MG TAB PO PRN (08:55)
[2023-09-15] MEDS ORDERED: ATORVASTATIN 80 MG TAB PO STA (08:55)
[2023-09-15] MEDS ORDERED: ALPRAZolam 0.5 MG TAB PO PRN (08:55)
[2023-09-15] MEDS ORDERED: NITROGLYCERIN SL TABS 0.4 MG TAB SUBLINGUAL PRN (08:55)
[2023-09-15] MEDS: SYMBICORT 160-4.5 MCG INHALER INHALATION SCH ×2 (08:58→21:14)
[2023-09-15] MEDS: IPRATROPIUM-ALBUTEROL 3 ML NEB INHALATION SCH ×4 (08:58→21:14)
[2023-09-15] MEDS ORDERED: SODIUM CHLORIDE 0.9% 1,000 ML in EMPTY BAG 1 BAG IV SCH (09:00)
[2023-09-15 09:29] LABS: Basophils % (A) 0 %; Eosinophils % (A) 0 %; HCT 42.8 % (34.0-46.0); HGB 14.3 gm/dL (11.4-16.0); Lymphocytes # (A) 1.2 k/uL (1.0-4.8); Lymphocytes % (A) 8 %; MCH 30.5 pg (25.0-35.0); MCHC 33.5 g/dL (31.0-37.0); MCV 91.1 fL (80.0-100.0); Monocytes # (A) 0.3 k/uL (0-1.0); Monocytes % (A) 2 %; Neutrophils # (A) 12.6 k/uL (1.3-7.7); Neutrophils % (A) 89 %; Platelet Count 201 k/uL (150-450); RDW 13.4 % (11.5-15.5); WBC 14.2 k/uL (3.8-10.6)
[2023-09-15 09:41] LABS: ALT 23 U/L (4-34); AST 21 U/L (14-36); African American GFR (CKD) >90 (>60 ml/min/1.73 sqM); Albumin 4.4 g/dL (3.5-5.0); Alkaline Phosphatase 81 U/L (38-126); Anion Gap 14 mmol/L; Blood Urea Nitrogen 14 mg/dL (7-17); Calcium 10.1 mg/dL (8.4-10.2); Carbon Dioxide 21 mmol/L (22-30); Chloride 103 mmol/L (98-107); Glucose 231 mg/dL (74-99); Non-African American GFR(CKD) >90 (>60 ml/min/1.73 sqM); Potassium 3.9 mmol/L (3.5-5.1); Sodium 138 mmol/L (137-145); Total Bilirubin 0.4 mg/dL (0.2-1.3); Total Protein 6.8 g/dL (6.3-8.2)
[2023-09-15] MEDS: ASPIRIN 81 MG PO SCH (10:41)
[2023-09-15] MEDS ORDERED: HEPARIN SODIUM 1,000 UN/ML (10ML VL) IV PRN (11:00)
[2023-09-15] MEDS ORDERED: HEPARIN SOD,PORK IN 0.45% NACL 25,000 UNIT in 0.45% NACL 1 250ML.BAG IV SCH (11:00)
[2023-09-15] MEDS ORDERED: HEPARIN SODIUM 1,000 UN/ML (10ML VL) IV ONE (11:00)
--- NOTE | 2023-09-15 11:18 | P.CRDCN ---
History of Present Illness History of present illness: HISTORY OF PRESENT ILLNESS: This is a 63-year-old female with a past medical history significant for mild coronary artery disease, COPD, nicotine dependence, and hyperlipidemia. Patient follows in the office with Dr. Blandon. We have been asked to see the patient in co nsultation for chest pain. Patient examined at the bedside. Patient presented to the hospital with a chief complaint of chest pain and shortness of breath. She states she has been having heartburn symptoms for the past 7-10 days that occur mostly in the evening. She reports about 2 days ago she had 4 or 5 episodes of this chest discomfort and one day. She states she feels diaphoretic and short of breath when the pain occurs. She states that yesterday she took aspirin which relieved her pain. At the time of examination this morning, the patient denies chest pain or pressure. * EKG reveals sinus mechanism with no signs of acute ischemia * Chest xray chronic changes without acute pulmonary process * Chest CT: Negative for pulmonary embolism * Laboratory data: Significant for troponin 0.016. 0.066. 0.075. * Most recent echocardiogram obtained in August 2023 in office revealed normal ejection fraction, dilated RV with mildly impaired function * Cardiac catheterization history: December 2016 revealing mild disease in the mid RCA REVIEW OF SYSTEMS: At the time of my exam: CONSTITUTIONAL: Denies fever or chills. HEENT: Denies blurred vision, vision changes, or eye pain. Denies hemoptysis CARDIOVASCULAR: Denies chest pain. Denies orthopnea. Denies PND. Denies palpitations RESPIRATORY: Denies shortness of breath. GASTROINTESTINAL: Denies abdominal pain. Denies nausea or vomiting. HEMATOLOGIC: Denies bleeding disorders. GENITOURINARY: Denies any blood in urine. SKIN: Denies pruitis. Denies rash. PHYSICAL EXAM: VITAL SIGNS: Reviewed. GENERAL: Well-developed in no acute distress. HEENT: Head is normocephalic. Pupils are equal, round. Sclerae anicteric. Mucous membranes of the mouth are moist. Neck supple. No JVD or thyromegaly LUNGS: Respirations even and unlabored. Lungs essentially clear to auscultation bilaterally. HEART: Regular rate and rhythm. S1 and S2 heard. ABDOMEN: Soft. Nondistended. Nontender. EXTREMITIES: Normal range of motion. No clubbing or cyanosis. Peripheral pulses intact. No lower extremity edema NEUROLOGIC: Awake and alert. Oriented x 3. ASSESSMENT: Non-STEMI Mild coronary artery disease, per cardiac catheterization in 2017 Hyperlipidemia COPD History of lung CA Nicotine dependence PLAN: Obtain 2-D echo to assess cardiac structure and function Begin IV heparin Add aspirin 81 mg daily Resume home cardiac medications Check lipid panel Patient to undergo cardiac catheterization today with Dr. Blandon Smoking cessation recommended Further recommendations pending patient's course Nurse practitioner note has been reviewed by physician. Signing provider agrees with the documented findings, assessment, and plan of care. Past Medical History Past Medical History: Cancer, COPD, Hyperlipidemia, Osteoarthritis (OA), Thyroid Disorder Additional Past Medical History / Comment(s): lymph node cancer, small cell carcinoma. hx lung ca, chronic back pain, chemo 2018 History of Any Multi-Drug Resistant Organisms: None Reported Past Surgical History: Section, Cholecystectomy Additional Past Surgical History / Comment(s): right upper lung lobectomy, colonoscopy, neck fusion 2018, rt lung wedge surgey March 19, 2021 @ [facility]. Carpal tunnel Sx Rt side. Past Anesthesia/Blood Transfusion Reactions: No Reported Reaction Past Psychological History: Anxiety Smoking Status: Current every day smoker Past Alcohol Use History: Rare Past Drug Use History: Marijuana - Past Family History Mother History Unknown: Yes Family Medical History: Deep Vein Thrombosis (DVT) Father Family Medical History: Cancer Additional Family Medical History / Comment(s): lung cancer Brother(s) Family Medical History: Cancer Medications and Allergies Home Medications Medication Instructions Recorded Confirmed Type Levothyroxine Sodium [Synthroid] 100 mcg PO DAILY 05/09/16 09/14/23 History ALPRAZolam [Xanax] 0.25 mg PO BID PRN 11/08/20 09/14/23 History Albuterol Nebulized [Ventolin 2.5 mg INHALATION RT-TID PRN 11/08/20 09/14/23 History Nebulized] Albuterol Sulfate [Albuterol 1 - 2 puff PO RT-Q6H PRN 09/14/23 09/14/23 History Sulfate Hfa] Atorvastatin [Lipitor] 40 mg PO HS 09/14/23 09/14/23 History Budesonide/Formoterol Fumarate 2 puff INHALATION RT-BID 09/14/23 09/14/23 History [Symbicort 160-4.5 Mcg Inhaler] Gabapentin [Neurontin] 300 mg PO BID 09/14/23 09/14/23 History HYDROcodone/APAP 7.5-325MG [[place] 1 tab PO TID 09/14/23 09/14/23 History 7.5-325] Ibuprofen [Motrin] 800 mg PO BID PRN 09/14/23 09/14/23 History Multivitamins, Thera [Multivitamin 1 tab PO DAILY 09/14/23 09/14/23 History (formulary)] traZODone HCL [Desyrel] 25 mg PO HS 09/14/23 09/14/23 History Allergies Allergy/AdvReac Type Severity Reaction Status Date / Time No Known Allergies Allergy Verified 09/14/23 12:30 Physical Exam Vitals: Vital Signs Temp Pulse Pulse Resp BP BP Pulse Ox 09/15/23 09:10 101 H 18 09/15/23 08:58 84 16 95 09/15/23 08:27 98.1 F 98 18 148/79 94 L 09/15/23 04:45 78 18 124/78 95 09/14/23 22:00 71 16 126/81 96 09/14/23 19:53 66 09/14/23 19:43 63 09/14/23 19:31 60 16 114/67 95 09/14/23 16:33 98.0 F 67 16 149/72 97 09/14/23 15:30 69 16 09/14/23 15:19 59 L 18 113/77 96 09/14/23 12:20 66 18 09/14/23 12:10 52 L 18 Results 09/15/23 09:03 09/15/23 09:03 Cardiac Enzymes 09/14/23 09/14/23 09/14/23 Range/Units 11:01 11:01 15:27 AST 25 (14-36) U/L Troponin I 0.016 0.066 H* (0.000-0.034) ng/mL 09/14/23 09/15/23 Range/Units 18:13 09:03 AST 21 (14-36) U/L Troponin I 0.075 H* (0.000-0.034) ng/mL Coagulation 09/14/23 Range/Units 11:01 PT 10.4 (10.0-12.5) sec APTT 22.7 (22.0-30.0) sec CBC 09/14/23 09/15/23 Range/Units 11: 09:03 WBC 8.4 14.2 H (3.8-10.6) k/uL RBC 4.79 4.70 (3.80-5.40) m/uL Hgb 14.5 14.3 (11.4-16.0) gm/dL Hct 43.9 42.8 (34.0-46.0) % Plt Count 188 201 (150-450) k/uL Comprehensive Metabolic Panel 09/14/23 09/15/23 Range/Units 11: 09:03 Sodium 141 138 (137-145) mmol/L Potassium 3.9 3.9 (3.5-5.1) mmol/L Chloride 107 103 (98-107) mmol/L Carbon Dioxide 27 21 L (22-30) mmol/L BUN 14 14 (7-17) mg/dL Creatinine 0.71 0.61 (0.52-1.04) mg/dL Glucose 113 H 231 H (74-99) mg/dL Calcium 9.6 10.1 (8.4-10.2) mg/dL AST 25 21 (14-36) U/L ALT 20 23 (4-34) U/L Alkaline Phosphatase 85 81 (38-126) U/L Total Protein 6.3 6.8 (6.3-8.2) g/dL Albumin 3.9 4.4 (3.5-5.0) g/dL Current Medications Generic Name Dose Route Start Last Admin Trade Name Freq PRN Reason Stop Dose Admin Acetaminophen 650 mg 09/14/23 13:24 Acetaminophen Tab 325 Mg Tab PO Q6HR PRN Mild Pain or Fever > 100.5 Hydrocodone Bitart/Acetaminophen 1 each 09/14/23 16:00 09/15/23 08:10 Hydrocodone/Apap 7.5-325mg 1 Each Tab PO 1 each TID RANDI Administration Albuterol/Ipratropium 3 ml 09/14/23 16:00 09/15/23 08:58 Ipratropium-Albuterol 3 Ml Neb INHALATION 3 ml RT-QID RANDI Administration Alprazolam 0.25 mg 09/15/23 08:55 Alprazolam 0.25 Mg Tab PO Q6HR PRN Mild Anxiety Alprazolam 0.5 mg 09/15/23 08:55 Alprazolam 0.5 Mg Tab PO Q6HR PRN Moderate Anxiety Aspirin 81 mg 09/15/23 09:00 09/15/23 10:41 Aspirin 81 Mg PO Not Given DAILY RANDI Atorvastatin Calcium 40 mg 09/14/23 21:00 09/14/23 21:19 Atorvastatin 40 Mg Tab PO 40 mg HS RANDI Administration Budesonide/Formoterol Fumarate 2 puff 09/14/23 20:00 09/15/23 08:58 Symbicort 160-4.5 Mcg Inhaler INHALATION 2 puff RT-BID RANDI Administration Gabapentin 300 mg 09/14/23 21:00 09/15/23 08:10 Gabapentin 300 Mg Cap PO 300 mg BID RANDI Administration Heparin Sodium (Porcine) 0 unit 09/15/23 11:00 Heparin Sodium 1,000 Un/Ml (10ml Vl) IV PER PROTOCOL PRN Low PTT Protocol Hydromorphone HCl 0.5 mg 09/14/23 13:24 Hydromorphone 0.5 Mg/0.5 Ml Syringe IVP Q3HR PRN Moderate Pain (Scale 4 to 6) Sodium Chloride 1,000 mls @ 75 mls/hr 09/14/23 13:30 09/14/23 13:54 Saline 0.9% IV 75 mls/hr .[id number] RANDI Administration Heparin Sodium (Porcine) 10, 1,001 mls @ 999 mls/hr 09/16/23 07:00 000 unit/ Sodium Chloride IRRIGATION 09/16/23 23:00 ONCE PRN INTRA-OP Heparin Sodium (Porcine) 2,500 250.5 mls @ 250 mls/hr 09/16/23 07:00 unit/ Sodium Chloride IRRIGATION 09/16/23 23:00 ONCE PRN INTRA-OP Sodium Chloride 1,000 ml/ IV 1,000 mls @ 58.967 mls/hr 09/15/23 09:00 Solution IV .[id number] RANDI 1 ML/KG/HR Heparin Sodium/Sodium Chloride 250 mls @ 7.076 mls/hr 09/15/23 11:00 25,000 unit/ Sodium Chloride IV .Q24H RANDI Protocol 12 UNITS/KG/HR Levothyroxine Sodium 100 mcg 09/15/23 06:30 09/15/23 06:53 Levothyroxine 100 Mcg Tab PO 100 mcg DAILY@0630 RANDI Administration Methylprednisolone Sodium Succinate 40 mg 09/14/23 16:00 09/15/23 08:11 Methylprednisolone Sod Succi 40 Mg/Ml 1 Ml Vial IV 40 mg Q8HR RANDI Administration Multivitamins 1 each 09/15/23 09:00 09/15/23 08:09 Multivitamins, Thera 1 Each Tab PO 1 each DAILY RANDI Administration Naloxone HCl 0.2 mg 09/14/23 13:24 Naloxone 0.4 Mg/Ml 1 Ml Vial IV Q2M PRN Opioid Reversal Nitroglycerin 0.4 mg 09/15/23 08:55 Nitroglycerin Sl Tabs 0.4 Mg Tab SUBLINGUAL Q5M PRN Chest Pain Pantoprazole Sodium 40 mg 09/14/23 15:09 09/15/23 08:11 Pantoprazole 40 Mg/10 Ml Vial IVP 40 mg BID RANDI Administration Trazodone HCl 25 mg 09/14/23 21:00 09/14/23 21:20 Trazodone Hcl 50 Mg Tab PO Not Given HS RANDI 09/15/23 09:03 09/15/23 09:03
[2023-09-15] MEDS: ATORVASTATIN 40 MG TAB PO SCH ×3 (11:26→19:55)
[2023-09-15] MEDS: SODIUM CHLORIDE 0.9% 1,000 ML IV SCH ×2 (11:27→17:58)
[2023-09-15 12:07] LABS: INR 0.9 (<1.2); Prothrombin Time 10.4 sec (10.0-12.5)
--- NOTE | 2023-09-15 12:58 | CA ---
Transthoracic Echo Report Name: Halima Guardado Age: 63 Gender: F : 1960 Exam Date: 09/15/2023 10:03 Exam Location: [facility] Ht (in): 62 Wt (lb): 130 Ordering Physician: Rochelle Guardado Attending/Referring Phys: [id number], [employer] Maggi Fu, GONZALO Procedure CPT: Indications: LV function, abnormal trops Cardiac Hx: COPD, HTN, Hyperlipidemia. Technical Quality: Fair Contrast 1: Total Dose (mL): Contrast 2: Total Dose (mL): MEASUREMENTS (Male / Female) Normal Values 2D ECHO LV Diastolic Diameter PLAX 4.6 cm 4.2 - 5.9 / 3.9 - 5.3 cm LV Systolic Diameter PLAX 2.7 cm IVS Diastolic Thickness 1.2 cm 0.6 - 1.0 / 0.6 - 0.9 cm LVPW Diastolic Thickness 0.9 cm 0.6 - 1.0 / 0.6 - 0.9 cm LV Relative Wall Thickness 0.5 RV Internal Dim ED PLAX 2.7 cm LA Systolic Diameter LX 3.7 cm 3.0 - 4.0 / 2.7 - 3.8 cm LV Diastolic Volume MOD 4C 77.2 cm??? LV Systolic Volume MOD 4C 35.9 cm??? LV Ejection Fraction MOD 4C 53.4 % LV Cardiac Index MOD 4C 1890.0 cm???/min???m??? LV Diastolic Length 4C 7.3 cm LV Systolic Length 4C 6.2 cm LV Diastolic Volume MOD 2C 98.7 cm??? LV Systolic Volume MOD 2C 39.2 cm??? LV Ejection Fraction MOD 2C 60.4 % LV Cardiac Index MOD 2C 2730.6 cm???/min???m??? LV Diastolic Length 2C 7.3 cm LV Systolic Length 2C 5.7 cm LA Volume 26.8 cm??? 18 - 58 / 22 - 52 cm??? LA Volume Index 16.6 cm???/m??? 16 - 28 cm???/m??? M-MODE Aortic Root Diameter MM 2.8 cm AV Cusp Separation MM 2.0 cm DOPPLER AV Peak Velocity 135.3 cm/s AV Peak Gradient 7.3 mmHg MV Area PHT 2.5 cm??? Mitral E Point Velocity 89.0 cm/s Mitral A Point Velocity 83.1 cm/s Mitral E to A Ratio 1.1 MV Deceleration Time 304.8 ms MV E' Velocity 10.1 cm/s Mitral E to MV E' Ratio 8.8 TR Peak Velocity 243.1 cm/s TR Peak Gradient 23.6 mmHg Right Ventricular Systolic Press 28.6 mmHg FINDINGS Left Ventricle Left ventricular ejection fraction is estimated at 55-60 %. Left ventricular cavity size normal. Mildly increased septal wall thickness. Right Ventricle Normal right ventricular size. Right ventricular systolic pressure within normal limits. Right Atrium Normal right atrial size. Left Atrium Normal left atrial size. Mitral Valve Structurally normal mitral valve. No mitral stenosis, regurgitation or prolapse. Aortic Valve Trileaflet aortic valve. No aortic valve stenosis or regurgitation. Tricuspid Valve Structurally normal tricuspid valve. Mild tricuspid regurgitation. Pulmonic Valve Structurally normal pulmonic valve. No pulmonic regurgitation. Pericardium No pericardial effusion. Probable fat pad Aorta Normal size aortic root and proximal ascending aorta. CONCLUSIONS Normal LV size and systolic function. No significant abnormality on the Doppler exam. No pericardial effusion. No pulmonary hypertension Previewed by: Dr. Lizbet Pate MD (Electronically Signed) Final Date: 15 September 2023 12:57
[2023-09-15] MEDS ORDERED: LIDOCAINE 1% INJ 10MG/ML (20 ML MDV) ONE (14:25)
[2023-09-15] MEDS ORDERED: VERAPAMIL 2.5 MG/ML 2 ML AMP ONE (14:25)
[2023-09-15] MEDS ORDERED: MIDAZOLAM 2 MG/2 ML VIAL IVP ONE (14:41)
[2023-09-15] MEDS ORDERED: IV FLUID CONTINUATION 900 ML IV ONE (14:42)
[2023-09-15] MEDS ORDERED: LIDOCAINE 1% INJ 10MG/ML (20 ML MDV) SQ ONE (14:43)
[2023-09-15] MEDS ORDERED: HEPARIN SODIUM 1,000 UN/ML (10ML VL) ONE (14:55)
[2023-09-15] MEDS ORDERED: HEPARIN SODIUM 1,000 UN/ML (10ML VL) IVP ONE (14:57)
[2023-09-15] MEDS ORDERED: CLOPIDOGREL 75 MG TAB PO ONE (14:57)
[2023-09-15] MEDS ORDERED: CLOPIDOGREL 75 MG TAB ONE (14:57)
[2023-09-15] MEDS ORDERED: IOPAMIDOL-370 125ML BTL INJ ONE (15:09)
[2023-09-15] MEDS ORDERED: ALBUTEROL NEBULIZED 2.5 MG/3 ML INHALATION PRN (15:14)
[2023-09-15] MEDS ORDERED: ATROPINE SULFATE 0.1 MG/ML 10ML SYRINGE IV PRN (15:15)
[2023-09-15] MEDS ORDERED: MAG HYDROX/AL HYDROX/SIMETH 30 ML CUP PO PRN (15:15)
[2023-09-15] MEDS ORDERED: RX INFO: IV CONTRAST WAS GIVEN 1 EACH MISC MISCELLANE PRN (15:15)
[2023-09-15] MEDS ORDERED: ZOLPIDEM 5 MG TAB PO PRN (15:15)
--- NOTE | 2023-09-15 17:02 | P.PN ---
Subjective Progress Note Date: 09/15/23 This is a pleasant 63-year-old female who was recently admitted with chest pain and having elevated troponins. Cardiology following and patient is undergoing further cardiac MRI workup outpatient for cardiomegaly and reported increased pain and now elevation in troponins with cardiology recommending cardiac catheterization. Patient is scheduled for cardiac catheterization today and report is currently pending. Patient afebrile and currently nothing by mouth for the procedure. Review of systems: Constitutional: No reports of fatigue, fever, or chills Cardiovascular: reports of intermittent chest pain Respiratory: reports of shortness of breath with exertion GI: reports of occasional nausea, no reports of vomiting, no diarrhea : No reports of dysuria or retention Neurovascular: reports of generalized weakness All medications have been reviewed PHYSICAL EXAMINATION: GENERAL: The patient is alert and oriented x4, Well developed, well nourished. Elderly-appearing HEENT: Pupils are round and equally reacting to light. EOMI. no scleral icterus. No conjunctival pallor. Normocephalic, atraumatic. No pharyngeal erythema. No thyromegaly. CARDIOVASCULAR: S1 and S2 muffled PULMONARY: diminished breath sounds bilaterally with no wheezing , some scattered rhonchi noted. ABDOMEN: soft. Nontender on exam. non-distended, normoactive bowel sounds. No palpable organomegaly. MUSCULOSKELETAL: No joint swelling or deformity. EXTREMITIES: No cyanosis, clubbing, or pedal edema. NEUROLOGICAL: Gross neurological examination did not reveal any focal deficits. SKIN: No rashes. Assessment: Chest pain, NSTEMI elevated troponins Mild ascending aortic aneurysm on the computed tomography scan undergoing further cardiac workup for cardiomegaly and pending MRI History of chronic obstructive pulmonary disease Hyperlipidemia History of lymph node cancer History of small cell lung carcinoma Degenerative joint disease history Continued ongoing nicotine dependence History of chronic back pain GI prophylaxis DVT prophylaxis Full code Plan: Recommend to continue with current medications and management per cardiology following. Patient was continued on IV heparin underwent cardiac catheterization with stenting and awaiting official report Patient was evaluated in extended-stay after catheterization Patient reports she has no chest pain at this time Home medications reviewed and resumed Smoking cessation counseled extensively and patient reports she has been attempting to cut down outpatient and plans on not smoking anymore. Will add nicotine patch as needed Will follow-up with repeat labs and continue on telemetry monitoring Await cardiology clearance discharge planning Due to multiple complex medical issues, prognosis is guarded Possible discharge in the next 24-48 hours The impression and plan of care has been dictated by Radha Bella, nurse practitioner as directed. Dr. Constantin MD I have performed a history and examination and MDM of this patient, discussed the same with the dictator, and agree with the dictator's assessment and plan a s written ,documented as a scribe. Based on total visit time, I have performed more than 50% of the visit. Any additional findings or plans will be noted. Objective - Vital Signs Vital signs: Vital Signs Temp 98.3 F 09/15/23 14:07 Pulse 88 09/15/23 14:07 Resp 20 09/15/23 14:07 BP 148/82 09/15/23 14:07 Pulse Ox 96 09/15/23 14:07 FiO2 Intake & Output 09/14/23 09/15/23 09/15/23 18:59 06:59 18:59 Weight 58.967 kg - Labs CBC & Chem 7: 09/15/23 09:03 09/15/23 09:03 Labs: Abnormal Lab Results - Last 24 Hours (Table) 09/14/23 09/15/23 09/15/23 Range/Units 18:13 09:03 09:03 WBC 14.2 H (3.8-10.6) k/uL Neutrophils # 12.6 H (1.3-7.7) k/uL Carbon Dioxide 21 L (22-30) mmol/L Glucose 231 H (74-99) mg/dL Troponin I 0.075 H* (0.000-0.034) ng/mL HDL Cholesterol (40.00-60.00) mg/dL 09/15/23 Range/Units 09:03 WBC (3.8-10.6) k/uL Neutrophils # (1.3-7.7) k/uL Carbon Dioxide (22-30) mmol/L Glucose (74-99) mg/dL Troponin I (0.000-0.034) ng/mL HDL Cholesterol 62.40 H (40.00-60.00) mg/dL
[2023-09-15] MEDS: traZODone HCL 50 MG TAB PO SCH (19:55)
[2023-09-15] MEDS ORDERED: METOPROLOL TARTRATE 25 MG TAB PO SCH (21:00)
[2023-09-16] MEDS: methylPREDNISolone SOD SUCCI 40 MG/ML 1 ML VIAL IV SCH ×4 (01:04→23:30)
[2023-09-16] MEDS: LEVOTHYROXINE 100 MCG TAB PO SCH (06:23)
[2023-09-16] MEDS ORDERED: HEPARIN SODIUM,PORCINE 10,000 UNIT in SODIUM CHLORIDE 0.9% 1,000 ML IRRIGATION PRN (07:00)
[2023-09-16] MEDS ORDERED: HEPARIN SODIUM,PORCINE (1 ML) 2,500 UNIT in SODIUM CHLORIDE 0.9% 250 ML IRRIGATION PRN (07:00)
[2023-09-16] MEDS: IPRATROPIUM-ALBUTEROL 3 ML NEB INHALATION SCH ×4 (07:46→20:39)
[2023-09-16] MEDS: SYMBICORT 160-4.5 MCG INHALER INHALATION SCH ×3 (07:47→20:39)
--- NOTE | 2023-09-16 07:50 | P.PCN ---
Date of Procedure: 09/15/23 Operative Findings: Cardiac catheterization and percutaneous coronary intervention Performing physician Gil Blandon MD Procedure performed - Selective right and left coronary angiogram - Successful stenting of the mid right coronary artery using 4.0 x 15 mm Xience MONA with an excellent angiographic results and with adjunctive use of - - - - intravascular imaging - Selective right common femoral artery angiogram Indication Acute non-ST elevation myocardial infarction Complications None Level of sedation Moderate with a sedation length of 27 minutes Procedure description After obtaining informed consent the patient was brought to the cardiac laborer cheesemaking. The right common femoral artery was cannulated using micropuncture technique under ultrasound guidance and a micropuncture wire passed easily than I placed a 6 Mongolian sheath. After that I did selective right and left coronary angiogram with a JR4 and JL4 catheters. After that it did intervene on the right coronary artery. Selective coronary angiogram The RCA is a large caliber vessel and the dominant vessel and calcified vessel with critical disease involving the midportion The left main Angiographically normal The LCx Has mild disease only The LAD Has mild disease only as well PCI of the RCA Anticoagulation was initiated using heparin with continuous ECG monitoring. Subsequently I did engage the RCA using an AL 0.75 guide. I wired using a run through wire. Subsequently I did intravascular ultrasound and that showed calcified right coronary artery was a diameter of 4 mm. Predilatation was performed using 3.5 mm x 12 mm balloon before I deployed 4.0 x 15 mm stent where the stent was positioned under fluoroscopy guidance and deployed under 16 brandon. The following angiogram showed good angiographic results and the procedure was completed was no complication Conclusion - Critical disease involving the mid RCA. I did perform successful stenting of the RCA - Mild disease involving the left coronary system Postprocedure management Dual antiplatelet therapy using aspirin and Plavix for at least 12 months Follow-up with the patient
[2023-09-16] MEDS: GABAPENTIN 300 MG CAP PO SCH ×2 (09:23→20:29)
[2023-09-16] MEDS: METOPROLOL SUCCINATE (ER) 50 MG TAB.ER.24H PO SCH (09:23)
[2023-09-16] MEDS: PANTOPRAZOLE 40 MG/10 ML VIAL IVP SCH ×2 (09:23→20:29)
[2023-09-16] MEDS: MULTIVITAMINS, THERA 1 EACH TAB PO SCH (09:23)
[2023-09-16] MEDS: lisinopriL 10 MG TAB PO SCH (09:23)
[2023-09-16] MEDS: ASPIRIN 81 MG PO SCH (09:23)
[2023-09-16] MEDS: HYDROcodone/APAP 7.5-325MG 1 EACH TAB PO SCH ×3 (09:24→20:29)
[2023-09-16] MEDS: CLOPIDOGREL 75 MG TAB PO SCH (09:24)
[2023-09-16] MEDS: SODIUM CHLORIDE 0.9% 1,000 ML IV SCH ×2 (09:24→19:05)
[2023-09-16 09:30] LABS: Basophils % (A) 0 %; Eosinophils # (A) 0.1 k/uL (0-0.7); Eosinophils % (A) 1 %; HCT 37.8 % (34.0-46.0); HGB 12.9 gm/dL (11.4-16.0); Lymphocytes # (A) 1.3 k/uL (1.0-4.8); Lymphocytes % (A) 10 %; MCHC 34.1 g/dL (31.0-37.0); MCV 90.9 fL (80.0-100.0); Mean Platelet Volume 7.6; Monocytes # (A) 0.4 k/uL (0-1.0); Monocytes % (A) 3 %; Neutrophils # (A) 11.7 k/uL (1.3-7.7); Neutrophils % (A) 87 %; Platelet Count 164 k/uL (150-450); RBC 4.16 m/uL (3.80-5.40); RDW 13.5 % (11.5-15.5); WBC 13.5 k/uL (3.8-10.6)
[2023-09-16 09:48] LABS: INR 0.9 (<1.2); Prothrombin Time 10.4 sec (10.0-12.5)
--- NOTE | 2023-09-16 10:43 | P.PN ---
Subjective HISTORY OF PRESENT ILLNESS: This is a 63-year-old female with a past medical history significant for mild coronary artery disease, COPD, nicotine dependence, and hyperlipidemia. Patient follows in the office with Dr. Blandon. We have been asked to see the patient in consultation for chest pain. Patient examined at the bedside. Patient presented to the hospital with a chief complaint of chest pain and shortness of breath. She states she has been having heartburn symptoms for the past 7-10 days that occur mostly in the evening. She reports about 2 days ago she had 4 or 5 episodes of this chest discomfort and one day. She states she feels diaphoretic and short of breath when the pain occurs. She states that yesterday she took aspirin which relieved her pain. At the time of examination this morning, the patient denies chest pain or pressure. * EKG reveals sinus mechanism with no signs of acute ischemia * Chest xray chronic changes without acute pulmonary process * Chest CT: Negative for pulmonary embolism * Laboratory data: Significant for troponin 0.016. 0.066. 0.075. * Most recent echocardiogram obtained in August 2023 in office revealed normal ejection fraction, dilated RV with mildly impaired function * Cardiac catheterization history: December 2016 revealing mild disease in the mid RCA 09/16/2023 Patient is status post cardiac catheterization with Dr. Blandon. Patient underwent stenting of the mid right coronary artery. Patient examined this morning at the bedside. She denies any chest pain or pressure. She denies any shortness of breath. Echocardiogram completed revealing ejection fraction 55-60% PHYSICAL EXAM: VITAL SIGNS: Reviewed. GENERAL: Well-developed in no acute distress. HEENT: Head is normocephalic. Pupils are equal, round. Sclerae anicteric. Mucous membranes of the mouth are moist. Neck supple. No JVD or thyromegaly LUNGS: Respirations even and unlabored. Lungs essentially clear to auscultation bilaterally. HEART: Regular rate and rhythm. S1 and S2 heard. ABDOMEN: Soft. Nondistended. Nontender. EXTREMITIES: Normal range of motion. No clubbing or cyanosis. Peripheral pulses intact. No lower extremity edema NEUROLOGIC: Awake and alert. Oriented x 3. ASSESSMENT: Non-STEMI, status post PCI of the mid RCA Mild coronary artery disease, per cardiac catheterization in 2016 Hyperlipidemia COPD History of lung CA Nicotine dependence PLAN: Continue dual antiplatelet therapy with aspirin and Plavix Continue atorvastatin Change beta cirstian to metoprolol succinate 50 mg daily Smoking cessation recommended Continue to monitor patient for an additional 24 hours. Anticipate discharge home tomorrow. Further recommendations pending patient's course Nurse practitioner note has been reviewed by physician. Signing provider agrees with the documented findings, assessment, and plan of care. Objective - Vital Signs Vital signs: Vital Signs Temp 98.0 F 09/16/23 09:19 Pulse 67 09/16/23 09:33 Resp 17 09/16/23 09:19 BP 132/70 09/16/23 09:19 Pulse Ox 96 09/16/23 09:19 FiO2 Intake & Output 09/15/23 09/16/23 09/16/23 18:59 06:59 18:59 Intake Total 480 Balance 480 Weight 58.967 kg Intake: Oral 480 Other: Voiding Method Toilet Toilet # Voids 1 2 1 - Labs CBC & Chem 7: 09/16/23 09:14 09/15/23 09:03 Labs: Abnormal Lab Results - Last 24 Hours (Table) 09/15/23 09/15/23 09/16/23 Range/Units 09:03 18:28 09:14 WBC 13.5 H (3.8-10.6) k/uL Neutrophils # 11.7 H (1.3-7.7) k/uL APTT 37.3 H (22.0-30.0) sec HDL Cholesterol 62.40 H (40.00-60.00) mg/dL
[2023-09-16 11:25] LABS: Glucose,Whole Blood 173 mg/dL (70-110)
[2023-09-16 11:46] VITALS: BMI 23.8
[2023-09-16 11:52] LABS: African American GFR (CKD) >90 (>60 ml/min/1.73 sqM); Anion Gap 7 mmol/L; Blood Urea Nitrogen 11 mg/dL (7-17); Calcium 9.6 mg/dL (8.4-10.2); Carbon Dioxide 23 mmol/L (22-30); Chloride 109 mmol/L (98-107); Glucose 182 mg/dL (74-99); Non-African American GFR(CKD) >90 (>60 ml/min/1.73 sqM); Potassium 4.3 mmol/L (3.5-5.1); Sodium 139 mmol/L (137-145)
[2023-09-16 15:34] LABS: African American GFR (CKD) >90 (>60 ml/min/1.73 sqM); Anion Gap 9 mmol/L; Blood Urea Nitrogen 12 mg/dL (7-17); Calcium 9.4 mg/dL (8.4-10.2); Carbon Dioxide 23 mmol/L (22-30); Chloride 106 mmol/L (98-107); Glucose 206 mg/dL (74-99); Non-African American GFR(CKD) >90 (>60 ml/min/1.73 sqM); Sodium 138 mmol/L (137-145)
[2023-09-16 16:19] LABS: Glucose,Whole Blood 252 mg/dL (70-110)
[2023-09-16 19:57] LABS: Glucose,Whole Blood 206 mg/dL (70-110)
[2023-09-16] MEDS: ATORVASTATIN 40 MG TAB PO SCH ×2 (20:30→20:48)
[2023-09-16] MEDS: traZODone HCL 50 MG TAB PO SCH (20:31)
--- NOTE | 2023-09-17 05:38 | P.PN ---
Subjective Progress Note Date: 09/16/23 This is a pleasant 63-year-old female who was recently admitted with chest pain and having elevated troponins. Cardiology following and patient is undergoing further cardiac MRI workup outpatient for cardiomegaly and reported increased pain and now elevation in troponins with cardiology recommending cardiac catheterization. Patient is scheduled for cardiac catheterization today and report is currently pending. Patient afebrile and currently nothing by mouth for the procedure. 09/16/2023 A shunt is seen in follow-up this morning being followed by cardiology remained on telemetry monitoring. Patient underwent cardiac catheterization yesterday and had PCI stenting to the RCA. Patient reports no chest pain or worsening shortness of breath. Patient does report history of COPD and currently m aintained on breathing treatments. Patient reports has been attempting to quit smoking and has been smoking less than 5 cigarettes per day. Patient reports she has no desire to continue smoking. Nicotine patch offered patient reports does not need. Patient is afebrile and denies any chest pain or palpitations. Adjustments to medications being made and patient will be monitored overnight per cardiology with possible discharge planning in 24 hours. Encouraged to increase activity as tolerated. Review of systems: Constitutional: No reports of fatigue, fever, or chills Cardiovascular: No reports of chest pain Respiratory: reports of improvement in shortness of breath GI: No reports of nausea, no reports of vomiting, no diarrhea : No reports of dysuria or retention Neurovascular: No reports of weakness All medications have been reviewed PHYSICAL EXAMINATION: GENERAL: The patient is alert and oriented x4, Well developed, well nourished. Elderly-appearing HEENT: Pupils are round and equally reacting to light. EOMI. no scleral icterus. No conjunctival pallor. Normocephalic, atraumatic. No pharyngeal erythema. No thyromegaly. CARDIOVASCULAR: S1 and S2 muffled PULMONARY: diminished breath sounds bilaterally with no wheezing , some scattered rhonchi noted. ABDOMEN: soft. Nontender on exam. non-distended, normoactive bowel sounds. No palpable organomegaly. MUSCULOSKELETAL: No joint swelling or deformity. EXTREMITIES: No cyanosis, clubbing, or pedal edema. NEUROLOGICAL: Gross neurological examination did not reveal any focal deficits. SKIN: No rashes. Assessment: Chest pain, NSTEMI elevated troponins status post PCI stenting to the RCA Mild ascending aortic aneurysm on the computed tomography scan undergoing further cardiac workup for cardiomegaly and pending MRI History of chronic obstructive pulmonary disease Hyperlipidemia History of lymph node cancer History of small cell lung carcinoma Degenerative joint disease history Continued ongoing nicotine dependence History of chronic back pain GI prophylaxis DVT prophylaxis Full code Plan: Recommend to continue with current medications and management per cardiology following. Patient was continued on IV heparin underwent cardiac catheterization with PCI stenting to the RCA and cardiology making adjustments to medications recommending monitoring overnight on telemetry monitoring Encouraged to increase activity as tolerated Patient reports she has no chest pain at this time Home medications reviewed and resumed Smoking cessation counseled extensively and patient reports she has been attempting to cut down outpatient and plans on not smoking anymore. May have nicotine patch as needed Will continue on telemetry monitoring Await cardiology clearance and will need outpatient follow-up with Dr. Blandon Due to multiple complex medical issues, prognosis is guarded Possible discharge in the next 24 hours The impression and plan of care has been dictated by Radha Bella, nurse practitioner as directed. Dr. Constantin MD I have performed a history and examination and MDM of this patient, discussed the same with the dictator, and agree with the dictator's assessment and plan as written ,documented as a scribe. Based on total visit time, I have performed more than 50% of the visit. Any additional findings or plans will be noted. Objective - Vital Signs Vital signs: Vital Signs Temp 98.0 F 09/16/23 19:44 Pulse 65 09/16/23 23:34 Resp 18 09/16/23 23:34 BP 109/52 09/16/23 23:34 Pulse Ox 97 09/16/23 23:34 FiO2 Intake & Output 09/16/23 09/16/23 09/17/23 06:59 18:59 06:59 Intake Total 1625 Balance 1625 Weight 58.967 kg Intake: Oral 1625 Other: Voiding Method Toilet Toilet Toilet # Voids 2 2 - Labs CBC & Chem 7: 09/16/23 09:14 09/16/23 15:11 Labs: Abnormal Lab Results - Last 24 Hours (Table) 09/16/23 09/16/23 09/16/23 Range/Units 09:14 09:14 11: WBC 13.5 H (3.8-10.6) k/uL Neutrophils # 11.7 H (1.3-7.7) k/uL Chloride 109 H (98-107) mmol/L Glucose 182 H (74-99) mg/dL POC Glucose (mg/dL) 173 H (70-110) mg/dL 09/16/23 09/16/23 09/16/23 Range/Units 15:11 16:17 19:50 WBC (3.8-10.6) k/uL Neutrophils # (1.3-7.7) k/uL Chloride (98-107) mmol/L Glucose 206 H (74-99) mg/dL POC Glucose (mg/dL) 252 H 206 H (70-110) mg/dL
[2023-09-17] MEDS: LEVOTHYROXINE 100 MCG TAB PO SCH (05:50)
[2023-09-17 05:53] LABS: Glucose,Whole Blood 214 mg/dL (70-110)
[2023-09-17] MEDS: CLOPIDOGREL 75 MG TAB PO SCH (08:23)
[2023-09-17] MEDS: ASPIRIN 81 MG PO SCH (08:23)
[2023-09-17] MEDS: lisinopriL 10 MG TAB PO SCH (08:23)
[2023-09-17] MEDS: MULTIVITAMINS, THERA 1 EACH TAB PO SCH (08:24)
[2023-09-17] MEDS: HYDROcodone/APAP 7.5-325MG 1 EACH TAB PO SCH (08:24)
[2023-09-17] MEDS: PANTOPRAZOLE 40 MG/10 ML VIAL IVP SCH (08:24)
[2023-09-17] MEDS: METOPROLOL SUCCINATE (ER) 50 MG TAB.ER.24H PO SCH (08:24)
[2023-09-17] MEDS: GABAPENTIN 300 MG CAP PO SCH (08:24)
[2023-09-17] MEDS: methylPREDNISolone SOD SUCCI 40 MG/ML 1 ML VIAL IV SCH (08:24)
[2023-09-17] MEDS: IPRATROPIUM-ALBUTEROL 3 ML NEB INHALATION SCH ×2 (08:28→11:17)
[2023-09-17] MEDS: SYMBICORT 160-4.5 MCG INHALER INHALATION SCH (08:28)
[2023-09-17 08:43] VITALS: BP 147/67; PULSE 80; RESP 17; TEMP 98.9
[2023-09-17] MEDS: SODIUM CHLORIDE 0.9% 1,000 ML IV SCH (09:21)
--- NOTE | 2023-09-17 13:04 | P.PN ---
Subjective HISTORY OF PRESENT ILLNESS: This is a 63-year-old female with a past medical history significant for mild coronary artery disease, COPD, nicotine dependence, and hyperlipidemia. Patient follows in the office with Dr. Blandon. We have been asked to see the patient in consultation for chest pain. Patient examined at the bedside. Patient presented to the hospital with a chief complaint of chest pain and shortness of breath. She states she has been having heartburn symptoms for the past 7-10 days that occur mostly in the evening. She reports about 2 days ago she had 4 or 5 episodes of this chest discomfort and one day. She states she feels diaphoretic and short of breath when the pain occurs. She states that yesterday she took aspirin which relieved her pain. At the time of examination this morning, the patient denies chest pain or pressure. * EKG reveals sinus mechanism with no signs of acute ischemia * Chest xray chronic changes without acute pulmonary process * Chest CT: Negative for pulmonary embolism * Laboratory data: Significant for troponin 0.016. 0.066. 0.075. * Most recent echocardiogram obtained in August 2023 in office revealed normal ejection fraction, dilated RV with mildly impaired function * Cardiac catheterization history: December 2016 revealing mild disease in the mid RCA 09/16/2023 Patient is status post cardiac catheterization with Dr. Blandon. Patient underwent stenting of the mid right coronary artery. Patient examined this morning at the bedside. She denies any chest pain or pressure. She denies any shortness of breath. Echocardiogram completed revealing ejection fraction 55-60% 09/17/2023 Patient examined this morning at the bedside. Patient denies chest pain or pressure. She denies shortness of breath. Vital signs are stable. She has been up in relating of the room without difficulty. PHYSICAL EXAM: VITAL SIGNS: Reviewed. GENERAL: Well-developed in no acute distress. HEENT: Head is normocephalic. Pupils are equal, round. Sclerae anicteric. Mucous membranes of the mouth are moist. Neck supple. No JVD or thyromegaly LUNGS: Respirations even and unlabored. Lungs essentially clear to auscultation bilaterally. HEART: Regular rate and rhythm. S1 and S2 heard. ABDOMEN: Soft. Nondistended. Nontender. EXTREMITIES: Normal range of motion. No clubbing or cyanosis. Peripheral pulses intact. No lower extremity edema NEUROLOGIC: Awake and alert. Oriented x 3. ASSESSMENT: Non-STEMI, status post PCI of the mid RCA Mild coronary artery disease, per cardiac catheterization in 2017 Hyperlipidemia COPD History of lung CA Nicotine dependence PLAN: Continue dual antiplatelet therapy with aspirin and Plavix Continue atorvastatin Continue additional cardiac medications Smoking cessation recommended Patient is stable for discharge home today from a cardiac standpoint Nurse practitioner note has been reviewed by physician. Signing provider agrees with the documented findings, assessment, and plan of care. Objective - Vital Signs Vital signs: Vital Signs Temp 98.9 F 09/17/23 08:22 Pulse 80 09/17/23 08:39 Resp 17 09/17/23 08:22 BP 147/67 09/17/23 08:22 Pulse Ox 98 09/17/23 08:28 FiO2 Intake & Output 09/16/23 09/17/23 09/17/23 18:59 06:59 18:59 Intake Total 1625 480 Balance 1625 480 Weight 58.967 kg Intake: Oral 1625 480 Other: Voiding Method Toilet Toilet Toilet # Voids 2 2 - Labs CBC & Chem 7: 09/16/23 09:14 09/16/23 15:11 Labs: Abnormal Lab Results - Last 24 Hours (Table) 09/16/23 09/16/23 09/16/23 Range/Units 15:11 16:17 19:50 Glucose 206 H (74-99) mg/dL POC Glucose (mg/dL) 252 H 206 H (70-110) mg/dL 09/17/23 Range/Units 05:51 Glucose (74-99) mg/dL POC Glucose (mg/dL) 214 H (70-110) mg/dL
--- NOTE | 2023-09-17 14:29 | P.DS ---
Providers Date of admission: 09/14/23 13:24 Expected date of discharge: 09/17/23 Attending physician: Siva Mena MD Consults: 09/14/23 15:09 Consult Physician Routine Consulting Provider: Gil Blandon Consult Reason/Comments: cad Do you want consulting provider notified?: Yes 09/15/23 15:16 Consult Physician Routine Consulting Provider: [facility] Consult Reason/Comments: Post Interventional Patient Do you want consulting provider notified?: Already Contacted Primary care physician: Gianluc[facility] Hospital Course: Final diagnosis Chest pain, NSTEMI elevated troponins status post PCI stenting to the RCA Mild ascending aortic aneurysm on the computed tomography scan undergoing further cardiac workup for cardiomegaly and pending MRI History of chronic obstructive pulmonary disease Hyperlipidemia History of lymph node cancer History of small cell lung carcinoma Degenerative joint disease history Continued ongoing nicotine dependence History of chronic back pain GI prophylaxis DVT prophylaxis Full code Discharge disposition Patient is being discharged in a stable condition with guarded prognosis to home. Patient will follow-up with Dr. Lux in the outpatient setting upon discharge. Patient is to continue with current medications and close outpatient follow-up with cardiology Dr. Blandon as scheduled. Total time taken is greater than 35 minutes. Hospital course This is a 63-year-old female who was recently admitted with shortness of breath and chest pain being closely monitored by cardiology. Patient did have elevation in troponins with an NSTEMI and underwent cardiac catheterization with stenting to the RCA. Adjustments to medications have been made and patient has been cleared by cardiology. Patient will follow-up with supervisor cleaning and annealing Dr. Blandon in the outpatient setting in the next 1-2 weeks. Patient does have extensive history of smoking as well as COPD and was continued on steroids along with breathing treatments. Patient will continue a steroid taper on discharge. Recommend follow-up in the outpatient setting with pulmonary as well. Please refer to cardiology note for further HPI. Currently no reports of chest pain, shortness of breath, or palpitations. Patient is afebrile. No reports of nausea or vomiting and patient is tolerating diet. Patient will be discharged home today. Physical exam: Gen: This is a 63-year-old female who is awake, alert and oriented 3, well- developed, well-nourished HEENT: Head is atraumatic, normocephalic. Pupils equal, round. Sclerae is anicteric. NECK: Supple. No JVD. No lymphadenopathy. No thyromegaly. LUNGS: Diminished breath sounds bilaterally with some coarse scattered rhonchi. No intercostal retractions. HEART: Regular rate and rhythm. No murmur. ABDOMEN: Soft. Bowel sounds are present. No masses. No tenderness. EXTREMITIES: No pedal edema. No calf tenderness. NEUROLOGICAL: Patient is awake, alert and oriented x3. Cranial nerves 2 through 12 are grossly intact. Please refer to medication reconciliation sheet for a list of medications. The impression and plan of care has been dictated by Radha Bella, Nurse Practitioner as directed. Dr. Constantin MD I have performed a history and examination and MDM of this patient, discussed the same with the dictator, and agree with the dictator's assessment and plan as written ,documented as a scribe. Based on total visit time, I have performed more than 50% of the visit. Patient Condition at Discharge: Stable Plan - Discharge Summary Discharge Rx Participant: No New Discharge Prescriptions: New Clopidogrel [Plavix] 75 mg PO DAILY #30 tab predniSONE 10 mg PO DIRECTED #30 tab Metoprolol Succinate (ER) [Toprol XL] 50 mg PO DAILY #30 tab Acetaminophen Tab [Tylenol] 650 mg PO Q6HR PRN tab PRN Reason: Mild Pain Or Fever > 100.5 lisinopriL [Zestril] 10 mg PO DAILY #30 tab Aspirin 81 mg PO DAILY #30 tab Ipratropium-Albuterol Nebulize [Duoneb 0.5 mg-3 mg/3 ml Soln] 3 ml INHALATION RT-QID #100 each Continue Levothyroxine Sodium [Synthroid] 100 mcg PO DAILY Albuterol Nebulized [Ventolin Nebulized] 2.5 mg INHALATION RT-TID PRN PRN Reason: Shortness Of Breath ALPRAZolam [Xanax] 0.25 mg PO BID PRN PRN Reason: Anxiety Atorvastatin [Lipitor] 40 mg PO HS traZODone HCL [Desyrel] 25 mg PO HS Multivitamins, Thera [Multivitamin (formulary)] 1 tab PO DAILY Ibuprofen [Motrin] 800 mg PO BID PRN PRN Reason: Pain HYDROcodone/APAP 7.5-325MG [[place] 7.5-325] 1 tab PO TID Gabapentin [Neurontin] 300 mg PO BID Albuterol Sulfate [Albuterol Sulfate Hfa] 1 - 2 puff PO RT-Q6H PRN PRN Reason: Shortness Of Breath Budesonide/Formoterol Fumarate [Symbicort 160-4.5 Mcg Inhaler] 2 puff INHALATION RT-BID Discharge Medication List Levothyroxine Sodium [Synthroid] 100 mcg PO DAILY 05/09/16 [History] ALPRAZolam [Xanax] 0.25 mg PO BID PRN 11/08/20 [History] Albuterol Nebulized [Ventolin Nebulized] 2.5 mg INHALATION RT-TID PRN 11/08/20 [History] Albuterol Sulfate [Albuterol Sulfate Hfa] 1 - 2 puff PO RT-Q6H PRN 09/14/23 [History] Atorvastatin [Lipitor] 40 mg PO HS 09/14/23 [History] Budesonide/Formoterol Fumarate [Symbicort 160-4.5 Mcg Inhaler] 2 puff INHALATION RT-BID 09/14/23 [History] Gabapentin [Neurontin] 300 mg PO BID 09/14/23 [History] HYDROcodone/APAP 7.5-325MG [[place] 7.5-325] 1 tab PO TID 09/14/23 [History] Ibuprofen [Motrin] 800 mg PO BID PRN 09/14/23 [History] Multivitamins, Thera [Multivitamin (formulary)] 1 tab PO DAILY 09/14/23 [History] traZODone HCL [Desyrel] 25 mg PO HS 09/14/23 [History] Acetaminophen Tab [Tylenol] 650 mg PO Q6HR PRN tab 09/17/23 [Rx] Aspirin 81 mg PO DAILY #30 tab 09/17/23 [Rx] Clopidogrel [Plavix] 75 mg PO DAILY #30 tab 09/17/23 [Rx] Ipratropium-Albuterol Nebulize [Duoneb 0.5 mg-3 mg/3 ml Soln] 3 ml INHALATION RT-QID #100 each 09/17/23 [Rx] Metoprolol Succinate (ER) [Toprol XL] 50 mg PO DAILY #30 tab 09/17/23 [Rx] lisinopriL [Zestril] 10 mg PO DAILY #30 tab 09/17/23 [Rx] predniSONE 10 mg PO DIRECTED #30 tab 09/17/23 [Rx] Follow up Appointment(s)/Referral(s): Gil Blandon MD [STAFF PHYSICIAN] - 09/27/23 1:30 pm Gianluca Lux MD [Primary Care Provider] - 10/04/23 11:30 am Leo Gunn MD [STAFF PHYSICIAN] - 09/30/23 9:00 am Patient Instructions/Handouts: Angina (DC), COPD (Chronic Obstructive Pulmonary Disease) (DC), Heart Catheterization (DC) Activity/Diet/Wound Care/Special Instructions: Activity Limited until follow-up Follow-up with primary care provider on discharge Follow-up with her etiology outpatient as discussed and scheduled Continue taking medications as prescribed Follow-up pulmonary outpatient Recommend complete tobacco cessation Continue heart healthy diet Continue prednisone taper Discharge Disposition: HOME SELF-CARE
== END 2023-09-17 11:20 | disposition home or self-care (01) | DRG 322 ==
LOC: EC 10:48 → 6NMEDSUR 13:24 → OBSVTOIN 13:24 → 6NMEDSUR 15:38 → 3SCARD 17:00
PROVIDERS: ADMIT Internal Medicine; ATTEND Internal Medicine
PROC: 027034Z Dilation of Coronary Artery, One Artery with Drug-eluting Intraluminal Device, Percutaneous Approach (ICD-10-PCS; principal; 2023-09-15 11:00)
PROC: B41F1ZZ Fluoroscopy of Right Lower Extremity Arteries using Low Osmolar Contrast (ICD-10-PCS; principal; 2023-09-15 11:00)
PROC: B2111ZZ Fluoroscopy of Multiple Coronary Arteries using Low Osmolar Contrast (ICD-10-PCS; principal; 2023-09-15 11:00)
DX: I21.4 Non-ST elevation (NSTEMI) myocardial infarction (principal); C34.90 Malignant neoplasm of unspecified part of unspecified bronchus or lung; J44.1 Chronic obstructive pulmonary disease with (acute) exacerbation; E78.5 Hyperlipidemia, unspecified; Z20.822 Contact with and (suspected) exposure to COVID-19; I25.110 Atherosclerotic heart disease of native coronary artery with unstable angina pectoris; Z85.118 Personal history of other malignant neoplasm of bronchus and lung; F17.210 Nicotine dependence, cigarettes, uncomplicated; M19.90 Unspecified osteoarthritis, unspecified site; I10 Essential (primary) hypertension; I71.21 Aneurysm of the ascending aorta, without rupture; Z79.51 Long term (current) use of inhaled steroids; Z79.890 Hormone replacement therapy; Z79.899 Other long term (current) drug therapy; Z98.1 Arthrodesis status; Z90.49 Acquired absence of other specified parts of digestive tract
CPT/HCPCS: 36415; 71046; 71275; 76937; 80048; 80053; 80061; 83690; 83735; 83880; 84484; 85025; 85379; 85610; 85730; 87636; 92978; 93005; 93306; 93454; 94640; 94760; 96361; 96365; 96366; 96375; 96376; 99285

== ENCOUNTER → 2023-12-03 | Outpatient (CLI) | payer MEDICARE, OTHER ==
[2023-12-03 15:02] LABS: African American GFR (CKD) >90 (>60 ml/min/1.73 sqM); Blood Urea Nitrogen 12 mg/dL (7-17); Non-African American GFR(CKD) >90 (>60 ml/min/1.73 sqM)
--- NOTE | 2023-12-11 13:37 | CT ---
EXAMINATION TYPE: CT ChestAbdPelvis w con DATE OF EXAM: 12/03/2023 COMPARISON: 05/24/2023, 04/24/2022 HISTORY: 62-year-old female C34.11, Lung Ca. TECHNIQUE: Contiguous axial scanning of the chest, abdomen, and pelvis performed with IV Contrast, pa tient injected with 100 cc mL of Isovue 300. Delayed images through the kidneys were obtained. Garcia l/sagittal reconstructions performed. CT DLP: 587.5 mGycm Automated exposure control for dose reduction was used. FINDINGS: Chest: Heart normal size without pericardial effusion. Similar ectatic ascending aorta at 3.8 cm. Mild atherosclerotic arch calcifications with conventional arch vessel branching anatomy. No thoracic lymphadenopathy by CT size criteria. Redemonstrated post surgical change of right upper lobectomy with associated volume loss. Strandy and patchy interstitial and groundglass change anterior right lung remains unchanged. Tiny 1.8 cm lung h erniation at the ninth posterolateral right intercostal space remains unchanged. No abnormal increasi ng soft tissue or nodularity is identified. Background mild to moderate emphysematous change. ABDOMEN: No focal liver lesion. 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 Slight asymmetric thickening left adrenal gland remains unchanged suggesting a chronic benign etiolog y. Right adrenal gland and pancreas within normal limits. Anterior splenule and a tiny nonspecific 7 mm hypodensity medial spleen remains unchanged. Renal cortical cysts measuring up to 2.3 cm on the left are unchanged. [id number] atherosclerotic calcifications abdominal aorta. No mesenteric or retroperitoneal adenopathy. No dilated small bowel, free fluid, or free air. There is moderate stool burden. Tiny fatty milk or hernia. No pericolonic inflammatory change. Pelvis: Bladder partially distended. Uterus anteverted. Both ovaries are visualized. Left-sided pelvic phlebo lith. No abnormal fluid collection in the pelvis or pelvic lymphadenopathy. Bones: Advanced degenerative disc disease towards the right at L2-L3. No osseous destructive process seen. IMPRESSION: 1. UNCHANGED POSTSURGICAL AND POSTTREATMENT CHANGE RIGHT HEMITHORAX. NO INCREASING SOFT TISSUE OR NEW NODULARITY/LYMPHADENOPATHY TO SUGGEST RECURRENT OR METASTATIC DISEASE.
== END | disposition home or self-care (01) ==
LOC: RADCTMAIN 14:19
PROVIDERS: ATTEND Internal Medicine Hematology & Oncology
DX: C34.11 Malignant neoplasm of upper lobe, right bronchus or lung (principal); J44.9 Chronic obstructive pulmonary disease, unspecified; E78.5 Hyperlipidemia, unspecified; E03.9 Hypothyroidism, unspecified; Z98.890 Other specified postprocedural states
CPT/HCPCS: 82565; 84520; 71260; 74177; 36415; Q9967

== ENCOUNTER → 2024-06-28 | Outpatient (CLI) | payer MEDICARE, OTHER ==
--- NOTE | 2024-06-28 22:01 | CT ---
EXAMINATION TYPE: CT ChestAbdPelvis w con DATE OF EXAM: 06/28/2024 INDICATION: f/u lung ca COMPARISON: 12/03/2023 CT DLP: 1213 mGycm CONTRAST: Performed with Oral Contrast and with IV Contrast, patient injected with 100 mL of Isovue 300. TECHNIQUE: Axial images at 5 mm thick sections. Reconstructed images in the coronal plane. Delayed images through the kidneys. FINDINGS: CT CHEST: Thyroid is not identified in the [id number]. No suspicious lung nodules or focal infiltrates are present. Some streak opacity within the anterior right mid lung may be chronic. Findings may be improved from comparison. There is a 0.3 cm nodule alejandro r the right upper lung field near these changes at the right mediastinal border which may have been p resent previously. No enlarged mediastinal or hilar adenopathy is evident. Few scattered small shotty lymph nodes are pr esent. The ascending aorta diameter at the level of the main pulmonary artery is 3.8 cm. The main pulmonary artery diameter at the bifurcation is 2.[address] ABDOMEN: Liver: Normal Spleen: Normal Pancreas: Normal Adrenal glands: The adrenal glands are normal. Gallbladder: Normal Kidneys: No masses are evident. No hydronephrosis is present. There is a 2.6 cm cortical renal cyst at the superior anterior pole of the left kidney. Delayed images were obtained through the kidneys, which remain unremarkable. Aorta: Vascular calcification is within the aorta. Inferior vena cava: Normal. CT PELVIS: Loops of bowel within the abdomen and pelvis are normal. There are loops of bowel which are incom pletely distended or lack oral contrast limiting their evaluation. Appendix: Normal as visualized. Urinary bladder: Normal. Distal left ureter is mildly prominent. However, no obstructing etiology is identified. This has a normal caliber from the left mid hemipelvis to the left renal pelvis. Genitourinary structures: Uterus appears within normal limits adnexa are normal. Osseous structures: No suspicious lytic or sclerotic lesions. IMPRESSION: 1. Chronic changes within the anterior right upper lung field. Small nodule may be better visualized abdomen present previously within this region. With the patient's history, precautionary follow-up ex am in 6 months is recommended.
== END | disposition home or self-care (01) ==
LOC: RADCTMAIN 13:20
PROVIDERS: ATTEND Internal Medicine Hematology & Oncology
DX: C34.11 Malignant neoplasm of upper lobe, right bronchus or lung
CPT/HCPCS: 36415; 71260; 74177

== ENCOUNTER → 2024-12-29 | Outpatient (CLI) | payer MEDICARE ==
[2024-12-29 13:52] LABS: African American GFR (CKD) >90 (>60 ml/min/1.73 sqM); Blood Urea Nitrogen 14 mg/dL (7-17); Non-African American GFR(CKD) >90 (>60 ml/min/1.73 sqM)
--- NOTE | 2024-12-29 15:50 | CT ---
EXAMINATION TYPE: CT ChestAbdPelvis w con CT DLP: 778 mGycm, Automated exposure control for dose reduction was used. DATE OF EXAM: 12/29/2024 3:26 PM COMPARISON: Multiple CT Chest Abdomen Pelvis With most recent 06/28/2024 CLINICAL INDICATION:Female, 64 years old with history of C34.11 LUNG CANCER; [facility], F/u for lung cancer . Technique: Multiple axial images of the chest, abdomen, and pelvis were obtained following the intrav enous administration of 100 mL Isovue-300. Oral contrast was administered. Two-dimensional coronal an d sagittal reconstructions were obtained. Findings: CHEST: LUNGS/ PLEURA: No pleural effusion, pneumothorax, focal consolidation. Stable postsurgical changes al maida the medial right upper lobe and right suprahilar region. Subpleural interstitial changes along th e anterior right upper lobe redemonstrated. There is again associated volume loss and upward retracti on of the right hilum. Posterior right lower lung small hernia containing lung. No new suspicious pul monary nodule or mass AIRWAY: Patent and unremarkable. HEART: Size within normal limits. No pericardial effusion. Mild to moderate coronary artery calcifica tions. MEDIASTINUM: No evidence of adenopathy. VASCULATURE: Stable ectasia of the ascending thoracic aorta measuring up to 3.8 cm. Mild atheroscler otic calcification of the aorta is branches. MUSCULOSKELETAL: No acute osseous abnormalities. No aggressive osseous lesion. Partial visualization of cervical fusion hardware. SOFT TISSUES/LYMPH NODES: Unremarkable. LOWER NECK: Atrophic thyroid gland. ABDOMEN: ABDOMEN LIVER: Unremarkable GALLBLADDER AND BILE DUCTS: The gallbladder is surgically absent. PANCREAS: Unremarkable. SPLEEN: Stable 1.3 cm hypodense medial splenic lesion likely representing a hemangioma or cyst ADRENAL GLANDS: Unremarkable. KIDNEYS AND URETERS: No evidence of hydronephrosis or renal calculus. The kidneys enhance symmetrical ly. Left superior pole 2.7 cm cyst redemonstrated. Contrast is demonstrated within both collecting sy stems on the delayed phase. PELVIS BLADDER: Incompletely distended but grossly unremarkable. REPRODUCTIVE: Unremarkable. ABDOMEN & PELVIS STOMACH AND BOWEL: Stomach and duodenum are unremarkable. No focal bowel wall thickening or surroundi ng inflammatory changes. Enteric contrast reaches the descending colon. No evidence of bowel obstruct ion. PERITONEUM: No evidence of pneumoperitoneum or free fluid. VASCULATURE: Mild to moderate atherosclerotic calcifications are present throughout the abdominal aor ta and its branches. No abdominal aortic aneurysm. Pelvic phleboliths. MUSCULOSKELETAL: No acute osseous abnormalities. Mild disc degeneration changes are present throughou t the thoracolumbar spine. This is most pronounced at L2-L3. No aggressive osseous lesion. LYMPH NODES: No gross evidence for lymphadenopathy. SOFT TISSUE/ABDOMINAL WALL: Small fat filled umbilical hernia. IMPRESSION: Stable posttreatment changes of the right upper lobe. No CT evidence to suggest recurrent/metastatic disease within the chest, abdomen or pelvis. [facility], , 12/29/2024 3:48 PM
== END | disposition home or self-care (01) ==
LOC: RADCTMAIN 13:17
PROVIDERS: ATTEND Internal Medicine Hematology & Oncology
DX: C34.11 Malignant neoplasm of upper lobe, right bronchus or lung (principal); J44.9 Chronic obstructive pulmonary disease, unspecified; E03.9 Hypothyroidism, unspecified; E78.5 Hyperlipidemia, unspecified; K42.9 Umbilical hernia without obstruction or gangrene; Z98.890 Other specified postprocedural states
CPT/HCPCS: 82565; 84520; 71260; 74177; 36415; Q9967